=== PATIENT | male | born 1955 | race Caucasian/White ===

== ENCOUNTER 2018-06-19 17:50 | Inpatient (IN) | payer OTHER ==
[~2018-06-19] VITALS: Ht 177.8 cm; Wt 94.7 kg
[~2018-06-19 17:50] MED LIST: ASPI81TA25 PO; LABE100T3 PO; LISI-787 PO
[2018-06-19] MEDS ORDERED: SODIUM CHLORIDE 0.9% 1000ML 1,000 ML IV STA (18:05)
[2018-06-19] MEDS ORDERED: MULTI-VITAMIN INFUSION INJ 10 ML, FoLIC ACID INJ 1 MG, THIAMINE HCL INJ 100 MG in SODIU... IV STA (18:05)
--- NOTE | 2018-06-19 18:26 | DIAGNOSTIC IMAGING REPORT ---
CHEST ONE VIEW PORTABLE HISTORY: 63 years-old Male Evaluate Fever/Sepsis acute fever with sepsis COMPARISON: Chest radiograph 11/29/2013 TECHNIQUE: Portable AP view the chest FINDINGS: Cardiac silhouette is normal in size. Subsegmental right basilar opacities suggest atelectasis. Calcification of the aorta. No pneumothorax, or overt pulmonary edema. Blunting of left costophrenic angle suggests trace effusion. No lobar airspace consolidation. Bones of the chest appear grossly intact. The patient is slightly rotated to the left. IMPRESSION: 1. No lobar airspace consolidation to suggest pneumonia. 2. Trace left pleural effusion. The above report was generated using voice recognition software. It may contain grammatical, syntax or spelling errors. Electronically signed by: Art Keen M.D. 06/19/2018 6:25 PM Dictated Date/Time: 06/19/2018 6:23 PM
[2018-06-19 18:57] LABS: PTT PATIENT 28.7 SECONDS (21.0-31.0)
[2018-06-19] MEDS ORDERED: LABE1TAB28 PO (18:59)
[2018-06-19] MEDS ORDERED: LOSA1TAB38 PO (18:59)
[2018-06-19] MEDS ORDERED: FURO-85 PO (18:59)
[2018-06-19] MEDS ORDERED: ASPI81TA28 PO (18:59)
[2018-06-19] MEDS ORDERED: PRAV10TA39 PO (18:59)
[2018-06-19] MEDS ORDERED: SILD1TAB19 PO (18:59)
[2018-06-19] MEDS ORDERED: HYDR25TA4 PO (18:59)
--- NOTE | 2018-06-19 19:07 | DIAGNOSTIC IMAGING REPORT ---
HEAD WITHOUT CONTRAST (CT) CLINICAL HISTORY: 63 years-old Male with Evaluate Fever/Sepsis. Acute fever with sepsis TECHNIQUE: Multiple axial CT images of the head were obtained without contrast. A dose lowering technique was utilized adhering to the principles of ALARA. CT DOSE: 537.48 mGy.cm COMPARISON: CT head 11/29/2013 FINDINGS: No acute intracranial hemorrhage, midline shift, intracranial mass, hydrocephalus, territorial ischemia or abnormal extra-axial collection. The calvarium is intact. The paranasal sinuses, mastoid air cells, and middle ear cavities are clear. IMPRESSION: No acute intracranial abnormality. The above report was generated using voice recognition software. It may contain grammatical, syntax or spelling errors. Electronically signed by: Art Keen M.D. 06/19/2018 7:06 PM Dictated Date/Time: 06/19/2018 7:04 PM
[2018-06-19 19:12] LABS: ALBUMIN 3.5 gm/dl (3.4-5.0); ALKALINE PHOSPHATASE 119 U/L (45-117); ALT/SGPT 79 U/L (12-78); AST/SGOT 57 U/L (15-37); BLOOD UREA NITROGEN 9 mg/dl (7-18); CALCIUM 9.1 mg/dl (8.5-10.1); CARBON DIOXIDE 26 mmol/L (21-32); CKMB 2.9 ng/ml (0.5-3.6); CREATININE 0.97 mg/dl (0.60-1.40); GLUCOSE 82 mg/dl (70-99); LIPASE 220 U/L (73-393); POTASSIUM 3.2 mmol/L (3.5-5.1); SODIUM 110 mmol/L (136-145); TOTAL PROTEIN 7.3 gm/dl (6.4-8.2)
[2018-06-19 19:30] LABS: HEMATOCRIT 33.9 % (42-52); HEMOGLOBIN 12.9 g/dL (14.0-18.0); MEAN CELL VOLUME 89.2 fL (80-100); MEAN CORPUSCULAR HEMOGLOBIN 33.9 pg (25-34); MEAN CORPUSCULAR HGB CONC 38.1 g/dl (32-36); PLATELET COUNT 113 K/uL (130-400); WHITE BLOOD COUNT 4.71 K/uL (4.8-10.8)
[2018-06-19 19:35] LABS: BASO % 0.8 %; BASO ABS # 0.04 K/uL (0-0.2); EOS % 1.5 %; EOS ABS # 0.07 K/uL (0-0.5); IG# 0.04 K/uL (0.00-0.02); LYMPH % 20.2 %; LYMPH ABS # 0.95 K/uL (1.2-3.4); MONO % 9.6 %; MONO ABS # 0.45 K/uL (0.11-0.59); NEUT % 67.1 %; NEUT ABS # 3.16 K/uL (1.4-6.5)
[2018-06-19] MEDS ORDERED: LORAZEPAM 2 MG/ML 1 ML VIAL IM STA (20:55)
[2018-06-19] MEDS ORDERED: ONDANSETRON INJ 2 MG/ML 2 ML VIAL IV PRN (21:30)
[2018-06-19] MEDS ORDERED: ACETAMINOPHEN 325 MG TAB PO PRN (21:30)
[2018-06-19] MEDS ORDERED: SODIUM CHLORIDE 3% 500 ML BAG IV SCH (21:30)
[2018-06-19] MEDS ORDERED: ICU PROTOCOL FOR HYPERGLYCEMIA PRN (21:30)
[2018-06-19] MEDS ORDERED: SODIUM CHLORIDE 0.9% 1000ML 1,000 ML IV SCH (22:15)
--- NOTE | 2018-06-19 22:16 | EMERGENCY ROOM VISIT NOTE ---
History First contact with patient: 17:59 Chief Complaint: ALCOHOL OVERDOSE Stated Complaint: ALCOHOL History of Present Illness The patient is a 63 year old male who presents to the Emergency Room with complaints of decreased alertness, decreased p.o. intake and weakness. The patient has not been communicating to the family. They reported to EMS that the patient drinks about 30 beers a day. He has not been eating solids 4 days. The patient is a poor historian and is not verbally communicating at the time of the interview and therefore the history is limited to history obtained from EMS and family. The family is concerned about the patient's well-being due to this change in his behavior. He was 302'd by EMS as he was not cooperative and coming. Police were involved at the scene. I feel the patient is not cooperating by staying nonverbal but he clearly understands and answers by shaking his head up and down or left and right. Review of Systems Limited based on patient's lack of cooperation/nonverbal state. Past Medical/Surgical History Medical Problems: (1) HTN (hypertension) (2) Hyponatremia Alcohol abuse Noncompliance with medications Stroke Social History Smoking Status: Current Every Day Smoker Alcohol Use: heavy Marital Status: Housing Status: lives with family Occupation Status: unemployed Current/Historical Medications Scheduled Aspirin (Aspirin Ec), 81 MG PO DAILY Furosemide (Lasix), 20 MG PO DAILY Hydrochlorothiazide (Hctz), 25 MG PO DAILY Labetalol (Normodyne), 200 MG PO BID Losartan Potassium (Cozaar), 100 MG PO DAILY Pravastatin Sodium (Pravastatin Sodium), 1 TAB PO DAILY Sildenafil Citrate (Pulmonary (Sildenafil Citrate), 40-60 MG PO prn ud Physical Exam Vital Signs Date Time Temp Pulse Resp B/P (MAP) Pulse Ox O2 Delivery O2 Flow Rate FiO2 06/19/18 21:48 98 Nasal Cannula 3.0 06/19/18 21:45 89 Room Air 06/19/18 21:35 67 16 127/81 94 Room Air 06/19/18 18:04 37.0 72 18 138/86 98 Room Air 06/19/18 18:03 72 Physical Exam CONSTITUTIONAL/VITAL SIGNS: Reviewed / noted above. GENERAL: Non-toxic in appearance. INTEGUMENTARY: Warm, dry, and Rock. HEAD: Normocephalic. EYES: without scleral icterus or trauma. ENT/OROPHARYNX: clear and moist. LYMPHADENOPATHY/NECK: Is supple without lymphadenopathy or meningismus. RESPIRATORY: Lungs clear and equal. CARDIOVASCULAR: Regular rate and rhythm. GI/ABDOMEN: Soft and nontender. No organomegaly or pulsatile mass. No rebound or guarding. Normal bowel sounds. EXTREMITIES: Warm and well perfused. Chronic appearing deformity to the left ankle. BACK: No CVA tenderness. NEUROLOGICAL: Intact without focal deficits. Nonverbal-felt to be voluntary. PSYCHIATRIC: Nonverbal during interview. Shakes head up and down her left and right answer questions. Minimally cooperates with following commands. MUSCULOSKELETAL: Normally developed with good muscle tone. TRIAGE NURSING DOCUMENTATION REVIEWED. Medical Decision & Procedures ER Provider Diagnostic Interpretation: CHEST ONE VIEW PORTABLE HISTORY: 63 years-old Male Evaluate Fever/Sepsis acute fever with sepsis COMPARISON: Chest radiograph 11/29/2013 TECHNIQUE: Portable AP view the chest FINDINGS: Cardiac silhouette is normal in size. Subsegmental right basilar opacities suggest atelectasis. Calcification of the aorta. No pneumothorax, or overt pulmonary edema. Blunting of left costophrenic angle suggests trace effusion. No lobar airspace consolidation. Bones of the chest appear grossly intact. The patient is slightly rotated to the left. IMPRESSION: 1. No lobar airspace consolidation to suggest pneumonia. 2. Trace left pleural effusion. The above report was generated using voice recognition software. It may contain grammatical, syntax or spelling errors. Electronically signed by: Art Keen M.D. 06/19/2018 6:25 PM Laboratory Results 06/19/18 18:30 Red Blood Count 3.80, Mean Corpuscular Volume 89.2, Mean Corpuscular Hemoglobin 33.9, Mean Corpuscular Hemoglobin Concent 38.1, Neutrophils (%) (Auto) 67.1, Lymphocytes (%) (Auto) 20.2, Monocytes (%) (Auto) 9.6, Eosinophils (%) (Auto) 1.5, Basophils (%) (Auto) 0.8, Neutrophils # (Auto) 3.16, Lymphocytes # (Auto) 0.95, Monocytes # (Auto) 0.45, Eosinophils # (Auto) 0.07, Basophils # (Auto) 0.04 Test 06/19/18 18:30 06/19/18 19:08 06/19/18 21:24 06/19/18 22:00 White Blood Count 4.71 K/uL (4.8-10.8) Red Blood Count 3.80 M/uL (4.7-6.1) Hemoglobin 12.9 g/dL (14.0-18.0) Hematocrit 33.9 % (42-52) Mean Corpuscular Volume 89.2 fL (80-100) Mean Corpuscular Hemoglobin 33.9 pg (25-34) Mean Corpuscular Hemoglobin Concent 38.1 g/dl (32-36) Platelet Count 113 K/uL (130-400) Neutrophils (%) (Auto) 67.1 % Lymphocytes (%) (Auto) 20.2 % Monocytes (%) (Auto) 9.6 % Eosinophils (%) (Auto) 1.5 % Basophils (%) (Auto) 0.8 % Neutrophils # (Auto) 3.16 K/uL (1.4-6.5) Lymphocytes # (Auto) 0.95 K/uL (1.2-3.4) Monocytes # (Auto) 0.45 K/uL (0.11-0.59) Eosinophils # (Auto) 0.07 K/uL (0-0.5) Basophils # (Auto) 0.04 K/uL (0-0.2) Immature Granulocyte % (Auto) 0.8 % Immature Granulocyte # (Auto) 0.04 K/uL (0.00-0.02) Red Blood Cell Morphology Unremarkable Prothrombin Time 10.3 SECONDS (9.0-12.0) Prothromb Time International Ratio 1.0 (0.9-1.1) Activated Partial Thromboplast Time 28.7 SECONDS (21.0-31.0) Partial Thromboplastin Ratio 1.1 Est Creatinine Clear Calc Drug Dose 85.8 ml/min Total Bilirubin 0.6 mg/dl (0.2-1) Direct Bilirubin 0.2 mg/dl (0-0.2) Aspartate Amino Transf (AST/SGOT) 57 U/L (15-37) Alanine Aminotransferase (ALT/SGPT) 79 U/L (12-78) Alkaline Phosphatase 119 U/L (45-117) Ammonia < 10.0 umol/L (11-32) Total Creatine Kinase 106 U/L (39-308) Creatine Kinase MB 2.9 ng/ml (0.5-3.6) Creatine Kinase MB Ratio 2.7 (0-3.0) Troponin I < 0.015 ng/ml (0-0.045) Total Protein 7.3 gm/dl (6.4-8.2) Albumin 3.5 gm/dl (3.4-5.0) Lipase 220 U/L (73-393) Thyroid Stimulating Hormone (TSH) 0.783 uIu/ml (0.300-4.500) Acetaminophen Level < 2 ug/ml (10-30) Ethyl Alcohol mg/dL 46.0 mg/dl (0-3) Urine Color YELLOW Urine Appearance CLEAR (CLEAR) Urine pH 5.5 (4.5-7.5) Urine Specific Melvin 1.008 (1.000-1.030) Urine Protein NEG (NEG) Urine Glucose (UA) NEG (NEG) Urine Ketones NEG (NEG) Urine Occult Blood NEG (NEG) Urine Nitrite NEG (NEG) Urine Bilirubin NEG (NEG) Urine Urobilinogen NEG (NEG) Urine Leukocyte Esterase NEG (NEG) Urine WBC (Auto) /hpf (0-5) Urine RBC (Auto) /hpf (0-4) Urine Hyaline Casts (Auto) /lpf (0-5) Urine Epithelial Cells (Auto) /lpf (0-5) Urine Bacteria (Auto) (NEG) Urine RBC 0-4 /hpf (0-4) Urine WBC 0 /hpf (0-5) Urine Epithelial Cells 0-5 /lpf (0-5) Urine Bacteria NEG (NEG) Urine Hyaline Casts 0 /lpf (0-5) Urine Opiates Screen NEG (NEG) Urine Methadone, Qualitative NEG (NEG) Urine Barbiturates NEG (NEG) Urine Phencyclidine (PCP) Level NEG (NEG) Ur Amphetamine/Methamphetamine NEG (NEG) MDMA (Ecstasy) Screen NEG (NEG) Urine Benzodiazepines Screen NEG (NEG) Urine Cocaine Metabolite NEG (NEG) Urine Marijuana (THC) NEG (NEG) Test 06/19/18 22:06 Medications Administered Medications (Trade) Dose Ordered Sig/Rachel Route Start Time Stop Time Status Last Admin Dose Admin Sodium Chloride 1,000 ml @ 999 mls/hr Q1H1M STAT IV 06/19/18 18:05 06/19/18 19:05 DC 06/19/18 18:35 999 MLS/HR Multivitamins 10 ml/Folic Acid 1 mg/Thiamine HCl 100 mg/Sodium Chloride 1,011.2 ml @ 999 mls/ hr Q1H1M STAT IV 06/19/18 18:05 06/19/18 19:05 DC 06/19/18 18:35 999 MLS/HR Lorazepam (Ativan Inj) 2 mg NOW STAT IM 06/19/18 20:55 06/19/18 20:57 DC 06/19/18 21:14 2 MG Procedure Central line attempt: Using sterile technique and with bedside ultrasound, an attempt was made to access the left subclavian vein. 1% lidocaine was used for anesthesia. The attempt was not successful after the first attempt. The patient was not able to cooperative with the procedure (moving and reaching with hands into the sterile environment) and therefore additional attempts were abandoned. ECG Per My Interpretation Indication: weakness Rate (beats per minute): 70 Rhythm: sinus rhythm Findings: 1st degree AV block, no acute ischemic change, no ectopy, other (no st elevation) ED Course The patient was evaluated. Banana bag and IV fluids ordered. Central line attempted. Medical Decision Differential includes acute coronary syndrome, myocardial infarction, CVA, TIA, anemia, infection, pneumonia, UTI, pyelonephritis, poor nutrition, dehydration, electrolyte disturbance,hypoglycemia, alcohol abuse/intoxication, other alcohol related illnesses .The patient is a 63 year old male who presents to the Emergency Room with complaints of decreased alertness, decreased p.o. intake and weakness. The patient has not been communicating to the family. They reported to EMS that the patient drinks about 30 beers a day. He has not been eating solids 4 days. The patient is a poor historian and is not verbally communicating at the time of the interview and therefore the history is limited to history obtained from EMS and family. The family is concerned about the patient's well-being due to this change in his behavior. He was 302'd by EMS as he was not cooperative and coming. Police were involved at the scene. I feel the patient is not cooperating by staying nonverbal but he clearly understands and answers by shaking his head up and down or left and right. The patient is afebrile with normal vital signs. His physical was unremarkable with exception of being nonverbal which is felt to be voluntary. Chronic deformity noted to the left ankle. A CT scan of the brain was negative for acute disease as was a chest x- ray. EKG shows a sinus rhythm without ischemic changes. Sodium was 110 and a potassium was 3.2. Chloride is 74. AST is 57 and ALT is 79. Troponin was negative, TSH was normal. Tox screen was negative. Alcohol level is 46. Urine did not show infection. CBC is unremarkable. The patient was told the results of the test. I did speak with Dr. Mendez from nephrology. He recommended 3% saline at 60 cc/h through central access. Subclavian access was attempted on the left without success. PICC line was placed. Chest X-ray does not show pneumothorax and the PICC line is in the SVC. I spoke with the hospitalist, who will see the patient for further inpatient evaluation and care. He was treated with a liter of normal saline IV as well as a banana bag when he initially arrived. Medication Reconcilliation Current Medication List: was personally reviewed by me Blood Pressure Screening Patient's blood pressure: Normal blood pressure Blood pressure disposition: Did not require urgent referral Impression Primary Impression: Hyponatremia Additional Impressions: Weakness Altered mental status, unspecified Alcoholism Critical Care I have personally spent 35 minutes of critical care time in the direct management of this patient. This includes bedside care, interpretation of diagnostic studies, and testing, discussion with consultants, patient, and family members, and other required patient management activities. This 35 minutes is in excess of all separately billable procedures. Departure Information Dispostion Being Evaluated By Hospitalist Referrals No Doctor, Assigned (PCP) Patient Instructions [facility] Problem Qualifiers
--- NOTE | 2018-06-19 22:22 | DIAGNOSTIC IMAGING REPORT ---
CHEST ONE VIEW PORTABLE HISTORY: 63 years-old Male s/p central line attempt left side status post placement of a left-sided PICC COMPARISON: Chest radiograph 06/19/2018 at 6:04 PM TECHNIQUE: Portable AP view the chest FINDINGS: Study is limited secondary to patient rotation. Cardiac silhouette appears to be within the upper limits of normal in size. Subsegmental bibasilar opacities with trace pleural effusions. Pulmonary vascular congestion without overt pulmonary edema. No postprocedural pneumothorax. Left-sided PICC is noted with distal tail within the distribution of the distal SVC. Acute to subacute appearing mildly displaced fractures of the lateral left eighth and ninth ribs. IMPRESSION: 1. Left-sided PICC distal tip projects over the distal SVC. No postprocedural pneumothorax identified. 2. Mild pulmonary vascular congestion with trace pleural effusions. 3. Subsegmental bibasilar opacities suggest atelectasis. 4. Acute to subacute appearing mildly displaced fractures of the posterior lateral left eighth and ninth ribs. The above report was generated using voice recognition software. It may contain grammatical, syntax or spelling errors. Electronically signed by: Art Keen M.D. 06/19/2018 10:21 PM Dictated Date/Time: 06/19/2018 10:18 PM
[2018-06-19] MEDS ORDERED: MAGNESIUM SULFATE 1GM / D5W 100 ML IV STA (22:34)
[2018-06-19] MEDS ORDERED: POTASSIUM CHLORIDE 10 MEQ TABCR PO STA (22:34)
[2018-06-19 22:35] LABS: PHOSPHORUS 2.8 mg/dl (2.5-4.9)
[2018-06-19] MEDS ORDERED: LORAZEPAM 2 MG/ML 1 ML VIAL IV PRN (22:45)
--- NOTE | 2018-06-19 22:52 | History and Physical ---
History & Physical Date & Time of Service: Jun 19, 2018 at 22:26 Chief Complaint: Alcohol Primary Care Physician: Alex Zhou D.O. History of Present Illness Source: family Mr. Meyer is a 63yo male with history of HTN, HLP, abnormal LFTs, thalamic CVA in 2013, EtOH and tobacco abuse presenting with severe symptomatic hyponatremia. History obtained from patient's daughter and ex- at bedside as patient is somnolent after receiving Ativan for PICC line placement. Patient with history of frequent falls, mostly EtOH induced. Family reports he has fallen down the steps in his home a number of times. Unsure of any recent head trauma. His last fall reported to be this AM when he missed his chair while trying to sit down and fell to the floor after which he was unable to get up secondary to diffuse weakness and poor coordination. Falls have been increased in frequency over the past two weeks as well as worsening balance and difficulty ambulating. Family also reports that he is confused, not recognizing his family, not acting appropriately and poor memory. They also endorse a 30# weight loss over the last month and state that he has stopped eating completely and presently only drinks EtOH. Patient has prolonged history of EtOH abuse. Drank liquor to excess in the past. Presently drinks one case of beer daily. Last drink was this afternoon. No reported history of DTs or withdrawal symptoms, however patient has not had a lapse in his EtOH intake for over 2 years. He is an active smoker - appx 25 hand rolled cigarettes/day. He occasionally smokes marijuana. Patient with history of left foot deformity after a traumatic tendon rupture years ago. He was prescribed PT and brace which he did not followup with. Past Medical/Surgical History Medical Problems: Hypertension Hyperlipidemia Abnormal LFTs EtOH abuse Tobacco abuse CVA - thalamus 2013 Past surgical history: Left foot tendon rupture Family History CVA and Hypertension Social History Smoking Status: Current Every Day Smoker Smokeless Tobacco Use: No Alcohol Use: heavy Drug Use: marijuana Marital Status: Housing status: lives with family Occupational Status: unemployed Immunizations History of Influenza Vaccine: No History of Tetanus Vaccine?: Yes History of Pneumococcal: No History of Hepatitis B Vaccine: No Allergies Coded Allergies: No Known Allergies (Unverified , 11/29/13) Home Medications Scheduled Aspirin (Aspirin Ec), 81 MG PO DAILY Furosemide (Lasix), 20 MG PO DAILY Hydrochlorothiazide (Hctz), 25 MG PO DAILY Labetalol (Normodyne), 200 MG PO BID Losartan Potassium (Cozaar), 100 MG PO DAILY Pravastatin Sodium (Pravastatin Sodium), 1 TAB PO DAILY Sildenafil Citrate (Pulmonary (Sildenafil Citrate), 40-60 MG PO prn ud Review of Systems Unable to obtain thorough and accurate 10 point ROS secondary to patient's altered mental status. Per family he denies fevers/chills/CP/palpitations/worsening shortness of breath /abdominal pain/nausea/vomiting/diarrhea He endorses dizziness, not feeling well, remainder described in HPI Physical Exam Vital Signs Date Time Temp Pulse Resp B/P (MAP) Pulse Ox O2 Delivery O2 Flow Rate FiO2 06/19/18 21:48 98 Nasal Cannula 3.0 06/19/18 21:45 89 Room Air 06/19/18 21:35 67 16 127/81 94 Room Air 06/19/18 18:04 37.0 72 18 138/86 98 Room Air 06/19/18 18:03 72 General: resting in bed, +snoring with apneic episodes, poorly kempt, patient opens eyes to verbal stimuli then returns to sleep. Does not follow commands. Skin: multiple scattered ecchymoses, left foot redness and warmth, no palmar erythema, no spider hemangioma HEENT: NC/AT, PERRL, anicteric sclera, conjunctiva without injection, MMM, poor dentition, neck supple, no JVD, no thyromegaly, no cervical LAD, trachea midline, neck supple Heart: +S1/S2, regular, 3/6 MARIO at left sternal base, no rubs/gallops, no JVD, no gynecomastica Lungs: equal air entry bilaterally, no rales/rhonchi or wheezing Abd: obese, soft, NT/ND, no masses or organomegaly, no ascites Ext: warm, well perfused, palpable pulses in LE bilaterally, left foot deformity, warmth/redness, onychomycosis Neuro: patient somnolent after receiving Ativan for procedure, opens eyes to verbal stimuli, withdraws 4 extremities no noxious stimuli with equal strength Diagnostics Laboratory Results Results Past 24 Hours Test 06/19/18 18:30 06/19/18 19:08 06/19/18 21:24 Range/Units White Blood Count 4.71 4.8-10.8 K/uL Red Blood Count 3.80 4.7-6.1 M/uL Hemoglobin 12.9 14.0-18.0 g/dL Hematocrit 33.9 42-52 % Mean Corpuscular Volume 89.2 80-100 fL Mean Corpuscular Hemoglobin 33.9 25-34 pg Mean Corpuscular Hemoglobin Concent 38.1 32-36 g/dl Platelet Count 113 130-400 K/uL Neutrophils (%) (Auto) 67.1 % Lymphocytes (%) (Auto) 20.2 % Monocytes (%) (Auto) 9.6 % Eosinophils (%) (Auto) 1.5 % Basophils (%) (Auto) 0.8 % Neutrophils # (Auto) 3.16 1.4-6.5 K/uL Lymphocytes # (Auto) 0.95 1.2-3.4 K/uL Monocytes # (Auto) 0.45 0.11-0.59 K/uL Eosinophils # (Auto) 0.07 0-0.5 K/uL Basophils # (Auto) 0.04 0-0.2 K/uL Immature Granulocyte % (Auto) 0.8 % Immature Granulocyte # (Auto) 0.04 0.00-0.02 K/uL Red Blood Cell Morphology Unremarkable Prothrombin Time 10.3 9.0-12.0 SECONDS Prothromb Time International Ratio 1.0 0.9-1.1 Activated Partial Thromboplast Time 28.7 21.0-31.0 SECONDS Partial Thromboplastin Ratio 1.1 Sodium Level 110 136-145 mmol/L Potassium Level 3.2 3.5-5.1 mmol/L Chloride Level 74 98-107 mmol/L Carbon Dioxide Level 26 21-32 mmol/L Anion Gap 10.0 3-11 mmol/L Blood Urea Nitrogen 9 7-18 mg/dl Creatinine 0.97 0.60-1.40 mg/dl Est Creatinine Clear Calc Drug Dose 85.8 ml/min Estimated GFR () 94.6 Estimated GFR (Non- 81.6 BUN/Creatinine Ratio 9.2 10-20 Random Glucose 82 70-99 mg/dl Calcium Level 9.1 8.5-10.1 mg/dl Total Bilirubin 0.6 0.2-1 mg/dl Direct Bilirubin 0.2 0-0.2 mg/dl Aspartate Amino Transf (AST/SGOT) 57 15-37 U/L Alanine Aminotransferase (ALT/SGPT) 79 12-78 U/L Alkaline Phosphatase 119 45-117 U/L Ammonia < 10.0 11-32 umol/L Total Creatine Kinase 106 39-308 U/L Creatine Kinase MB 2.9 0.5-3.6 ng/ml Creatine Kinase MB Ratio 2.7 0-3.0 Troponin I < 0.015 0-0.045 ng/ml Total Protein 7.3 6.4-8.2 gm/dl Albumin 3.5 3.4-5.0 gm/dl Lipase 220 73-393 U/L Thyroid Stimulating Hormone (TSH) 0.783 0.300-4.500 uIu/ml Acetaminophen Level < 2 10-30 ug/ml Ethyl Alcohol mg/dL 46.0 0-3 mg/dl Urine Color YELLOW Urine Appearance CLEAR CLEAR Urine pH 5.5 4.5-7.5 Urine Specific [place] 1.008 1.000-1.030 Urine Protein NEG NEG Urine Glucose (UA) NEG NEG Urine Ketones NEG NEG Urine Occult Blood NEG NEG Urine Nitrite NEG NEG Urine Bilirubin NEG NEG Urine Urobilinogen NEG NEG Urine Leukocyte Esterase NEG NEG Urine WBC (Auto) 0-5 /hpf Urine RBC (Auto) 0-4 /hpf Urine Hyaline Casts (Auto) 0-5 /lpf Urine Epithelial Cells (Auto) 0-5 /lpf Urine Bacteria (Auto) NEG Urine RBC 0-4 0-4 /hpf Urine WBC 0 0-5 /hpf Urine Epithelial Cells 0-5 0-5 /lpf Urine Bacteria NEG NEG Urine Hyaline Casts 0 0-5 /lpf Urine Opiates Screen NEG NEG Urine Methadone, Qualitative NEG NEG Urine Barbiturates NEG NEG Urine Phencyclidine (PCP) Level NEG NEG Ur Amphetamine/Methamphetamine NEG NEG MDMA (Ecstasy) Screen NEG NEG Urine Benzodiazepines Screen NEG NEG Urine Cocaine Metabolite NEG NEG Urine Marijuana (THC) NEG NEG Diagnostic Radiology CHEST ONE VIEW PORTABLE HISTORY: 63 years-old Male Evaluate Fever/Sepsis acute fever with sepsis COMPARISON: Chest radiograph 11/29/2013 TECHNIQUE: Portable AP view the chest FINDINGS: Cardiac silhouette is normal in size. Subsegmental right basilar opacities suggest atelectasis. Calcification of the aorta. No pneumothorax, or overt pulmonary edema. Blunting of left costophrenic angle suggests trace effusion. No lobar airspace consolidation. Bones of the chest appear grossly intact. The patient is slightly rotated to the left. IMPRESSION: 1. No lobar airspace consolidation to suggest pneumonia. 2. Trace left pleural effusion. The above report was generated using voice recognition software. It may contain grammatical, syntax or spelling errors. Electronically signed by: Art Keen M.D. 06/19/2018 6:25 PM HEAD WITHOUT CONTRAST (CT) CLINICAL HISTORY: 63 years-old Male with Evaluate Fever/Sepsis. Acute fever with sepsis TECHNIQUE: Multiple axial CT images of the head were obtained without contrast. A dose lowering technique was utilized adhering to the principles of ALARA. CT DOSE: 537.48 mGy.cm COMPARISON: CT head 11/29/2013 FINDINGS: No acute intracranial hemorrhage, midline shift, intracranial mass, hydrocephalus, territorial ischemia or abnormal extra-axial collection. The calvarium is intact. The paranasal sinuses, mastoid air cells, and middle ear cavities are clear. IMPRESSION: No acute intracranial abnormality. The above report was generated using voice recognition software. It may contain grammatical, syntax or spelling errors. EKG The study demonstrates sinus rhythm with 1st degree AV block, QI=330, normal axis, no evidence of acute ischemia Impression Assessment and Plan 63yo male with HTN, HLP, EtOH and tobacco abuse, prior CVA presenting with acute hyponatremia Wh=055 1. Hyponatremia - acute euvolemic hyponatremia. Vc=822, prior was 135 in 2014. No seizures but family reports increase in falls/ambulatory dysfunction and confusion. PICC line placed in ER in anticipation of 3%NSS infusion. Patient appears to be euvolemic on exam. Ddx to include medication effects as patient on HCTZ, less likely secondary to Lasix. Poor solute intake with beer potomania. Also consider SIADH, liver dysfunction, endocrine etiology. -Check urine electrolytes, random cortisol, TSH, serum and urine osmolality -As patient is not actively seizing will hold of on 3% saline for now -Administer NSS at 125mL/hr continuous infusion -Check PRP q 4 hours to monitor rate of correction. Goal for no more than 0.5mEq/hour, no more than 10mEq/day -NPO except medications 2. EtOH abuse - +EtOH level of 46, last drink this AM. No reported history of withdrawals -Seizure precautions -Administer banana bag x 1 -Thiamine, MVI and Folic acid -CIWA protocol with IV Ativan PRN -Maintain electrolytes 3. Left foot deformity -Appears red and warm on exam, mild cellulitis -Check ESR and CRP -X-ray 2 view -Keflex 500mg po q 6 hours -Consider Podiatry consultation 4. HTN -patient normotensive at present -Continue Cozaar 100mg po daily -Continue Labetalol 200mg po BID -Hold HCTZ in setting of hyponatremia -Holding parameters on medications 5. HLP - stable, chronic -Continue Pravastatin 6. F/E/N - NSS at 125mL/hr, monitor electrolytes and replete as needed, will administer Kdur 40mEq and Magnesium sulfate x 2gm, thiamine daily, MVI, NPO for now except medications 7. Ppx - Lovenox for DVT prophylaxis 8. Code - Full 9. Dispo - admit to MICU Resuscitation Status Full VTE Prophylaxis Will order VTE Prophylaxis: Yes
[2018-06-19 23:01] VITALS: BP 146/84; TEMP 36.7
--- NOTE | 2018-06-19 23:02 | Nephrology Consultation ---
Nephrology Consultation Date & Providers Date of Consultation: Jun 19, 2018. Primary Care Provider: Alex Zhou D.O. Referring Provider: Reason for Consultation Hyponatremia History of Present Illness Mr. Wes Meyer is a 63-year-old male with a history of hypertension and CVA. There is a significant history of chronic tobacco abuse and regular alcohol use. The patient was consuming 30 beers a day per report. Nutrition has been poor. Wes was involuntary committed to the ED today after EMS and police were summoned to his home by family. The family was concerned regarding decreased alertness, poor oral intake and significant generalized weakness. I was contacted by Dr. Esposito due to severe hyponatremia. In the ED, 1L of saline was provided as well as a liter of D5W+thiamine+folate+ MVI. Wes is making urine. UA/microscopy was bland and acellular. SG 1.008. Urine output not documented. The patient was given Ativan for agitation and is somnolent. He is resting comfortably in bed at the time of my assessment. Wes has been drinking up until the day of admission. Reported 30+ beers per day. No history of withdraw or seizures. Most recent prior serum sodium was in 2013. The patient was admitted to [facility] in 2013 with accelerated hypertension and CVA. CT head was obtained and reviewed in the ED today. No reported evidence of herniation. History was obtained from the medical record and discussion with ED medical staff and physicians. The patient was unable to provide history due to current mental status. Past Medical/Surgical History Medical: Hypertension (previously treated with MALVIN and HCTZ but patient reportedly not currently taking) History of thalamic CVA in the setting of accelerated HTN Tobacco abuse Alcohol abuse and dependence Surgical: none reported Allergies Coded Allergies: No Known Allergies (Unverified , 11/29/13) Inpatient Medications Current Inpatient Medications Medications (Trade) Dose Ordered Sig/Rachel Route Start Time Stop Time Status Last Admin Dose Admin Enoxaparin Sodium (Lovenox Inj) 40 mg Q24H SQ 06/19/18 21:30 07/19/18 21:29 UNV Acetaminophen (Tylenol Tab) 650 mg Q4H PRN PO 06/19/18 21:30 07/19/18 21:29 Ondansetron HCl (Zofran Inj) 4 mg Q6H PRN IV 06/19/18 21:30 07/19/18 21:29 Miscellaneous Information (Icu Protocol For Hyperglycemia) 1 ea PRN PRN N/A 06/19/18 21:30 06/21/18 21:29 Sodium Chloride 1,000 ml @ 125 mls/hr Q8H IV 06/19/18 22:15 07/19/18 22:14 UNV Aspirin (Ecotrin Tab) 81 mg DAILY PO 06/20/18 09:00 07/20/18 08:59 UNV Labetalol HCl (Normodyne Tab) 200 mg BID PO 06/20/18 09:00 07/20/18 08:59 UNV Losartan Potassium (coZAAR TAB) 100 mg DAILY PO 06/20/18 09:00 07/20/18 08:59 UNV Pravastatin Sodium (Pravachol Tab) 10 mg DAILY PO 06/20/18 09:00 07/20/18 08:59 UNV Social History Smoking Status: Current Every Day Smoker Marital Status: Occupation: unemployed Review of Systems A complete review of systems was unable to be performed due to current mental status. Physical Exam Date Time Temp Pulse Resp B/P (MAP) Pulse Ox O2 Delivery O2 Flow Rate FiO2 06/19/18 21:48 98 Nasal Cannula 3.0 06/19/18 21:45 89 Room Air 06/19/18 21:35 67 16 127/81 94 Room Air 06/19/18 18:04 37.0 72 18 138/86 98 Room Air 06/19/18 18:03 72 General Appearance: no apparent distress, + thin, + pertinent finding (sedate, poor hygiene) Head: normocephalic, atraumatic Eyes: sclerae normal ENT: normal ENT inspection, pharynx normal Neck: supple, no JVD Respiratory/Chest: lungs clear Cardiovascular: regular rate, rhythm, no gallop Abdomen/GI: normal bowel sounds, soft Extremities/Musculoskelatal: normal inspection, no pedal edema, + pertinent finding (chronic stasis changes, deformity of ankles and feet) Neurologic/Psych: + pertinent finding (obtunded, does not wake to answer questions) Laboratory Results Last 24 Hours Test 06/19/18 18:30 06/19/18 19:08 06/19/18 21:24 White Blood Count 4.71 K/uL Red Blood Count 3.80 M/uL Hemoglobin 12.9 g/dL Hematocrit 33.9 % Mean Corpuscular Volume 89.2 fL Mean Corpuscular Hemoglobin 33.9 pg Mean Corpuscular Hemoglobin Concent 38.1 g/dl Platelet Count 113 K/uL Neutrophils (%) (Auto) 67.1 % Lymphocytes (%) (Auto) 20.2 % Monocytes (%) (Auto) 9.6 % Eosinophils (%) (Auto) 1.5 % Basophils (%) (Auto) 0.8 % Neutrophils # (Auto) 3.16 K/uL Lymphocytes # (Auto) 0.95 K/uL Monocytes # (Auto) 0.45 K/uL Eosinophils # (Auto) 0.07 K/uL Basophils # (Auto) 0.04 K/uL Immature Granulocyte % (Auto) 0.8 % Immature Granulocyte # (Auto) 0.04 K/uL Red Blood Cell Morphology Unremarkable Prothrombin Time 10.3 SECONDS Prothromb Time International Ratio 1.0 Activated Partial Thromboplast Time 28.7 SECONDS Partial Thromboplastin Ratio 1.1 Sodium Level 110 mmol/L Potassium Level 3.2 mmol/L Chloride Level 74 mmol/L Carbon Dioxide Level 26 mmol/L Anion Gap 10.0 mmol/L Blood Urea Nitrogen 9 mg/dl Creatinine 0.97 mg/dl Est Creatinine Clear Calc Drug Dose 85.8 ml/min Estimated GFR () 94.6 Estimated GFR (Non- 81.6 BUN/Creatinine Ratio 9.2 Random Glucose 82 mg/dl Calcium Level 9.1 mg/dl Total Bilirubin 0.6 mg/dl Direct Bilirubin 0.2 mg/dl Aspartate Amino Transf (AST/SGOT) 57 U/L Alanine Aminotransferase (ALT/SGPT) 79 U/L Alkaline Phosphatase 119 U/L Ammonia < 10.0 umol/L Total Creatine Kinase 106 U/L Creatine Kinase MB 2.9 ng/ml Creatine Kinase MB Ratio 2.7 Troponin I < 0.015 ng/ml Total Protein 7.3 gm/dl Albumin 3.5 gm/dl Lipase 220 U/L Thyroid Stimulating Hormone (TSH) 0.783 uIu/ml Acetaminophen Level < 2 ug/ml Ethyl Alcohol mg/dL 46.0 mg/dl Urine Color YELLOW Urine Appearance CLEAR Urine pH 5.5 Urine Specific [place] 1.008 Urine Protein NEG Urine Glucose (UA) NEG Urine Ketones NEG Urine Occult Blood NEG Urine Nitrite NEG Urine Bilirubin NEG Urine Urobilinogen NEG Urine Leukocyte Esterase NEG Urine WBC (Auto) /hpf Urine RBC (Auto) /hpf Urine Hyaline Casts (Auto) /lpf Urine Epithelial Cells (Auto) /lpf Urine Bacteria (Auto) Urine RBC 0-4 /hpf Urine WBC 0 /hpf Urine Epithelial Cells 0-5 /lpf Urine Bacteria NEG Urine Hyaline Casts 0 /lpf Urine Opiates Screen NEG Urine Methadone, Qualitative NEG Urine Barbiturates NEG Urine Phencyclidine (PCP) Level NEG Ur Amphetamine/Methamphetamine NEG MDMA (Ecstasy) Screen NEG Urine Benzodiazepines Screen NEG Urine Cocaine Metabolite NEG Urine Marijuana (THC) NEG Impression (1) Hyponatremia (2) Hypokalemia (3) Alcohol dependence Mr. Wes Meyer is a 63-year-old male with hypertension, history of thalamic CVA, tobacco abuse and chronic alcohol use. He presented to the ED with mental status changes. The family describes decreased alertness, poor oral intake and generalized weakness. Laboratory evaluation is notable for hypokalemia and severe hyponatremia. He appears at least moderately symptomatic in terms of the dysnatremia with notable mental status changes and lethargy. Patient appears euvolemic. Clinical presentation is consistent with photomania. Certainly, I cannot exclude SIADH and I would avoid aggressive fluid resuscitation pending additional urine studies. Wes is a very high risk patient. High risk for ODS based on hypokalemia, alcohol abuse and poor nutrition. He is also high risk for complications associated with alcohol dependence. Chronicity of hyponatremia is unclear. Treatment should be approached cautiously to avoid correction >6 mEq/24 hours. The patient is being admitted to the ICU for management. In the ED, he was treated with 1L NS as well as 1L of D5W + thiamine, folate and MVI. IV lorazepam was provided for agitation. PICC line was placed for central access for hypertonic fluids and close monitoring of laboratory studies. The patient was consuming alcohol on the day prior to admission. Recommendations -- Monitor and replace serum potassium, 40 mEq IV now with additional as needed -- Check serum phosphorus and magnesium -- Check urine osmolality, [place] + -- Monitor urine osmolality regularly during treatment (q 6-8 hours) -- Document I/O'sBennett would be considered beneficial for accurate monitoring if needed -- Monitor serum sodium and potassium at least q 3 hours -- After review of pending urine osmolality and repeat serum sodium, start bolus of 3% saline if patient is not showing evidence of autocorrection -- Suggest giving 3% saline over bolus @ 100 ml over 1 hour followed by recheck of serum sodium level -- Additional boluses provided as needed to encourage a rate of correction not to exceed 0.5 mEq/hr or >6 mEq in 24 hours -- Stop infusions of hypertonic saline once serum sodium has increased > 4 mEq ( >114 mmol/L) -- Routine neuro-checks and monitoring for DT's
[2018-06-19] MEDS ORDERED: MULTI-VITAMIN INFUSION INJ 10 ML, THIAMINE HCL INJ 100 MG, FoLIC ACID INJ 1 MG in SODIU... IV STA (23:19)
[2018-06-19 23:38] VITALS: BP 146/84; PULSE 68; TEMP 36.7; O2SAT 100; Ht 177.8 cm; Wt 94.7 kg
[2018-06-20] VITALS (18 sets, daily range): BP systolic 106–169; BP diastolic 73–98; PULSE 58–69; TEMP 36.4–37.1; O2SAT 91–100
[2018-06-20 00:12] LABS: CREATININE 0.79 mg/dl (0.60-1.40)
[2018-06-20 00:13] LABS: POTASSIUM RANDOM URINE 2.6 mEq/L; SODIUM RANDOM URINE 8 mEq/L
[2018-06-20] MEDS ORDERED: POTASSIUM PHOS 3 MMOL/1 ML INFUSION IV STA (00:19)
[2018-06-20] MEDS ORDERED: POTASSIUM PHOSPHATE INJ 15 MMOL in SODIUM CHLORIDE 0.9% 250ML 250 ML IV ONE (01:00)
[2018-06-20] MEDS: POTASSIUM CHLR 20 MEQ / WTR 20 MEQ IV SCH ×2 (01:07→03:03)
[2018-06-20] MEDS: THIAMINE HCL INJ 100 MG in SYRINGE 9 ML IV SCH (01:07)
[2018-06-20] MEDS: DEXTROSE 5% 1000ML 1,000 ML IV SCH ×3 (01:08→14:59)
[2018-06-20] MEDS: DESMOPRESSIN ACETATE INJ 2 MCG in SODIUM CHLORIDE 0.9% 50ML 50 ML IV SCH ×2 (01:20→08:55)
[2018-06-20 03:14] LABS: CALCIUM 8.2 mg/dl (8.5-10.1); CREATININE 0.74 mg/dl (0.60-1.40); POTASSIUM 3.3 mmol/L (3.5-5.1)
[2018-06-20] MEDS ORDERED: NURSING VERBAL MED ORDER ONE ×3 (03:30→20:30)
[2018-06-20] MEDS ORDERED: DESMOPRESSIN ACETATE INJ 2 MCG in SODIUM CHLORIDE 0.9% 50ML 50 ML IV STA (04:33)
[2018-06-20 05:08] LABS: CALCIUM 8.1 mg/dl (8.5-10.1); CREATININE 0.78 mg/dl (0.60-1.40); POTASSIUM 3.6 mmol/L (3.5-5.1)
--- NOTE | 2018-06-20 06:45 | DIAGNOSTIC IMAGING REPORT ---
L FOOT 2 VIEWS HISTORY: 63 years-old Male deformity chronic deformity of the left foot COMPARISON: Left ankle radiographs 05/04/2012 TECHNIQUE: 3 views of the left foot FINDINGS: Pes planus deformity with hindfoot valgus deformity severe joint space narrowing noted throughout the midfoot and midfoot. Corticated bone fragments about the tibiotalar joint with chronic remodeling. Demineralized appearance of the bones. Moderate first MTP joint and at least mild multidigit interphalangeal osteoarthritis. No definite acute fracture or dislocation. Soft tissue swelling about the ankle with large joint effusion. IMPRESSION: 1. No acute fracture or dislocation. 2. Pes planus deformity with hindfoot valgus and advanced degenerative changes with remodeling about the hindfoot as above. 3. Soft tissue swelling about the ankle with joint effusion. The above report was generated using voice recognition software. It may contain grammatical, syntax or spelling errors. Electronically signed by: Art Keen M.D. 06/20/2018 6:43 AM Dictated Date/Time: 06/20/2018 6:39 AM
[2018-06-20] MEDS: ASPIRIN 81 MG ECTAB PO SCH (07:55)
[2018-06-20] MEDS: ENOXAPARIN 40 MG/0.4 ML SYR SQ SCH (07:55)
[2018-06-20] MEDS: LOSARTAN POTASSIUM 50 MG TAB PO SCH (07:55)
[2018-06-20] MEDS: CEPHALEXIN MONOHYDRATE 500 MG CAP PO SCH ×4 (07:55→21:32)
[2018-06-20] MEDS: LABETALOL HCL 200 MG TAB PO SCH ×2 (07:56→21:32)
[2018-06-20] MEDS: PRAVASTATIN SOD 10 MG TAB PO SCH (07:56)
[2018-06-20 08:42] LABS: CALCIUM 8.5 mg/dl (8.5-10.1); CREATININE 0.74 mg/dl (0.60-1.40); POTASSIUM 3.4 mmol/L (3.5-5.1)
--- NOTE | 2018-06-20 10:32 | Critical Care Consultation ---
Critical Care Consultation Date of Consultation: Jun 20, 2018. Attending Physician: Obie Lagunas D.O. Reason for Consultation: Hyponatremia in the setting of chronic alcohol abuse History of Present Illness 63 yo male with a h/o HTN, HLD, Etoh/tobacco abuse admitted to the ICU following presentation to the ED with severe hyponatremia. Patient has been experiencing frequent falls and increased confusion as of late. Family reports that over the past month he has experienced a 30 lb weight loss and has primarily received calories from beer. He fell early yesterday while attempting to sit, missing the chair completely. He was subsequently unable to stand up on his own. History obtained per admission H&P. Unable to obtain ROS at this time. The patient is able to follow simple commands , but remains with eyes closed unable to respond verbally Past Medical/Surgical History HTN, HLP, abnormal LFTs, thalamic CVA in 2013, EtOH and tobacco abuse Social History Smoking Status: Current Every Day Smoker Smokeless Tobacco Use: No Alcohol Use: heavy Drug Use: marijuana Marital Status: Housing Status: lives with family Occupation Status: unemployed Allergies Coded Allergies: No Known Allergies (Unverified , 11/29/13) Home Medications Scheduled Aspirin (Aspirin Ec), 81 MG PO DAILY Furosemide (Lasix), 20 MG PO DAILY Hydrochlorothiazide (Hctz), 25 MG PO DAILY Labetalol (Normodyne), 200 MG PO BID Losartan Potassium (Cozaar), 100 MG PO DAILY Pravastatin Sodium (Pravastatin Sodium), 1 TAB PO DAILY Sildenafil Citrate (Pulmonary (Sildenafil Citrate), 40-60 MG PO prn ud Current Inpatient Medications Current Inpatient Medications Medications (Trade) Dose Ordered Sig/Rachel Route Start Time Stop Time Status Last Admin Dose Admin Enoxaparin Sodium (Lovenox Inj) 40 mg Q24H SQ 06/20/18 08:00 07/20/18 07:59 06/20/18 07:55 40 MG Acetaminophen (Tylenol Tab) 650 mg Q4H PRN PO 06/19/18 21:30 07/19/18 21:29 Ondansetron HCl (Zofran Inj) 4 mg Q6H PRN IV 06/19/18 21:30 07/19/18 21:29 Miscellaneous Information (Icu Protocol For Hyperglycemia) 1 ea PRN PRN N/A 06/19/18 21:30 06/21/18 21:29 Aspirin (Ecotrin Tab) 81 mg DAILY PO 06/20/18 09:00 07/20/18 08:59 06/20/18 07:55 81 MG Labetalol HCl (Normodyne Tab) 200 mg BID PO 06/20/18 09:00 07/20/18 08:59 06/20/18 07:56 200 MG Losartan Potassium (coZAAR TAB) 100 mg DAILY PO 06/20/18 09:00 07/20/18 08:59 06/20/18 07:55 100 MG Pravastatin Sodium (Pravachol Tab) 10 mg DAILY PO 06/20/18 09:00 07/20/18 08:59 06/20/18 07:56 10 MG Thiamine HCl 100 mg/Syringe 10 ml @ 2 mls/min Q24H IV 06/19/18 23:30 07/19/18 23:29 06/20/18 01:07 2 MLS/MIN Lorazepam (Ativan Inj) 1 mg ONE PRN IV 06/19/18 22:45 Cephalexin Monohydrate (Keflex Cap) 500 mg QID PO 06/20/18 09:00 06/30/18 08:59 06/20/18 07:55 500 MG Dextrose 1,000 ml @ 150 mls/hr Q6H40M IV 06/20/18 00:30 07/20/18 00:29 06/20/18 01:08 100 MLS/HR Desmopressin Acetate 2 mcg/ Sodium Chloride 50.5 ml @ 100 mls/hr Q8H IV 06/20/18 01:00 07/20/18 00:59 06/20/18 08:55 100 MLS/HR Review of Systems Unable to obtain ROS at this time. The patient is able to follow simple commands , but remains with eyes closed unable to respond verbally Physical Exam Date Time Temp Pulse Resp B/P (MAP) Pulse Ox O2 Delivery O2 Flow Rate FiO2 06/20/18 09:16 58 16 106/75 (85) 95 Room Air 06/20/18 08:00 36.4 69 16 154/85 (108) 99 Room Air 06/20/18 08:00 99 Room Air 06/20/18 05:57 Nasal Cannula 2.0 06/20/18 05:02 58 16 132/81 (98) 99 06/20/18 04:02 36.4 61 17 122/84 (97) 99 06/20/18 03:01 61 15 139/80 (99) 100 06/20/18 02:03 66 15 130/74 (92) 100 06/20/18 01:07 62 14 110/73 (85) 99 06/20/18 00:01 36.7 69 17 169/98 (121) 95 06/19/18 23:38 36.7 68 22 146/84 100 Nasal Cannula 2.0 06/19/18 23:01 36.7 146/84 (104) 06/19/18 22:35 70 18 108/66 98 06/19/18 21:48 98 Nasal Cannula 3.0 06/19/18 21:45 89 Room Air 06/19/18 21:35 67 16 127/81 94 Room Air 06/19/18 18:04 37.0 72 18 138/86 98 Room Air 06/19/18 18:03 72 General Appearance: no apparent distress Head: normocephalic, atraumatic Eyes: PERRLA, no discharge Neck: normal range of motion, no tenderness, trachea midline, no stridor, supple, no thyromegaly, no lymphadenopathy Respiratory: breath sounds normal, clear to auscultation, clear to percussion, no respiratory distress, no tenderness, accessory muscle use, chest wall tenderness Cardiovasular: regular rate/rhythm, normal S1S2, no M/G/R, no murmur, no gallop , normal peripheral pulses Abdomen: non tender, normal bowel sounds, no rebound, no masses, no guarding, no organomegaly Lower Extremities: other (left foot deformity, surrounding erythema and warmth ) Neuro: normal motor exam (limited motor exam in bed, the patient has equal strenght in upper and lower extremities ), normal sensation Laboratory Results Last 24 Hours Test 06/19/18 18:30 06/19/18 19:08 06/19/18 23:40 06/20/18 00:00 White Blood Count 4.71 K/uL Red Blood Count 3.80 M/uL Hemoglobin 12.9 g/dL Hematocrit 33.9 % Mean Corpuscular Volume 89.2 fL Mean Corpuscular Hemoglobin 33.9 pg Mean Corpuscular Hemoglobin Concent 38.1 g/dl Platelet Count 113 K/uL Neutrophils (%) (Auto) 67.1 % Lymphocytes (%) (Auto) 20.2 % Monocytes (%) (Auto) 9.6 % Eosinophils (%) (Auto) 1.5 % Basophils (%) (Auto) 0.8 % Neutrophils # (Auto) 3.16 K/uL Lymphocytes # (Auto) 0.95 K/uL Monocytes # (Auto) 0.45 K/uL Eosinophils # (Auto) 0.07 K/uL Basophils # (Auto) 0.04 K/uL Immature Granulocyte % (Auto) 0.8 % Immature Granulocyte # (Auto) 0.04 K/uL Red Blood Cell Morphology Unremarkable Erythrocyte Sedimentation Rate 26 mm/hr Prothrombin Time 10.3 SECONDS Prothromb Time International Ratio 1.0 Activated Partial Thromboplast Time 28.7 SECONDS Partial Thromboplastin Ratio 1.1 Sodium Level 110 mmol/L 118 mmol/L Potassium Level 3.2 mmol/L 3.0 mmol/L Chloride Level 74 mmol/L 82 mmol/L Carbon Dioxide Level 26 mmol/L 28 mmol/L Anion Gap 10.0 mmol/L 7.0 mmol/L Blood Urea Nitrogen 9 mg/dl 8 mg/dl Creatinine 0.97 mg/dl 0.79 mg/dl Est Creatinine Clear Calc Drug Dose 85.8 ml/min 96.3 ml/min Estimated GFR () 94.6 109.2 Estimated GFR (Non- 81.6 94.2 BUN/Creatinine Ratio 9.2 10.1 Random Glucose 82 mg/dl 82 mg/dl Calcium Level 9.1 mg/dl 9.0 mg/dl Phosphorus Level 2.8 mg/dl Magnesium Level 1.9 mg/dl Total Bilirubin 0.6 mg/dl Direct Bilirubin 0.2 mg/dl Aspartate Amino Transf (AST/SGOT) 57 U/L Alanine Aminotransferase (ALT/SGPT) 79 U/L Alkaline Phosphatase 119 U/L Ammonia < 10.0 umol/L Total Creatine Kinase 106 U/L Creatine Kinase MB 2.9 ng/ml Creatine Kinase MB Ratio 2.7 Troponin I < 0.015 ng/ml C-Reactive Protein 0.89 mg/dl Total Protein 7.3 gm/dl Albumin 3.5 gm/dl Lipase 220 U/L Thyroid Stimulating Hormone (TSH) 0.783 uIu/ml Acetaminophen Level < 2 ug/ml Ethyl Alcohol mg/dL 46.0 mg/dl Urine Color YELLOW Urine Appearance CLEAR Urine pH 5.5 Urine Specific [place] 1.008 Urine Protein NEG Urine Glucose (UA) NEG Urine Ketones NEG Urine Occult Blood NEG Urine Nitrite NEG Urine Bilirubin NEG Urine Urobilinogen NEG Urine Leukocyte Esterase NEG Urine WBC (Auto) /hpf Urine RBC (Auto) /hpf Urine Hyaline Casts (Auto) /lpf Urine Epithelial Cells (Auto) /lpf Urine Bacteria (Auto) Urine RBC 0-4 /hpf Urine WBC 0 /hpf Urine Epithelial Cells 0-5 /lpf Urine Bacteria NEG Urine Hyaline Casts 0 /lpf Urine Opiates Screen NEG Urine Methadone, Qualitative NEG Urine Barbiturates NEG Urine Phencyclidine (PCP) Level NEG Ur Amphetamine/Methamphetamine NEG MDMA (Ecstasy) Screen NEG Urine Benzodiazepines Screen NEG Urine Cocaine Metabolite NEG Urine Marijuana (THC) NEG Osmolality 235 mOsm/kg Random Cortisol 14.66 mcg/dl Urine Osmolality 398 mOms/kg Test 06/20/18 02:39 06/20/18 04:39 06/20/18 07:46 Sodium Level 121 mmol/L 120 mmol/L 119 mmol/L Potassium Level 3.3 mmol/L 3.6 mmol/L 3.4 mmol/L Chloride Level 84 mmol/L 84 mmol/L 84 mmol/L Carbon Dioxide Level 27 mmol/L 27 mmol/L 27 mmol/L Anion Gap 10.0 mmol/L 9.0 mmol/L 8.0 mmol/L Blood Urea Nitrogen 8 mg/dl 8 mg/dl 8 mg/dl Creatinine 0.74 mg/dl 0.78 mg/dl 0.74 mg/dl Est Creatinine Clear Calc Drug Dose 102.8 ml/min 97.5 ml/min 102.8 ml/min Estimated GFR () 112.2 109.8 112.2 Estimated GFR (Non- 96.8 94.7 96.8 BUN/Creatinine Ratio 10.5 9.8 11.2 Random Glucose 96 mg/dl 103 mg/dl 99 mg/dl Calcium Level 8.2 mg/dl 8.1 mg/dl 8.5 mg/dl Vitamin B12 Level 887 pg/mL Folate 16.17 ng/mL Diagnostic Results CHEST ONE VIEW PORTABLE HISTORY: 63 years-old Male Evaluate Fever/Sepsis acute fever with sepsis COMPARISON: Chest radiograph 11/29/2013 TECHNIQUE: Portable AP view the chest FINDINGS: Cardiac silhouette is normal in size. Subsegmental right basilar opacities suggest atelectasis. Calcification of the aorta. No pneumothorax, or overt pulmonary edema. Blunting of left costophrenic angle suggests trace effusion. No lobar airspace consolidation. Bones of the chest appear grossly intact. The patient is slightly rotated to the left. IMPRESSION: 1. No lobar airspace consolidation to suggest pneumonia. 2. Trace left pleural effusion. The above report was generated using voice recognition software. It may contain grammatical, syntax or spelling errors. Electronically signed by: Art Keen M.D. 06/19/2018 6:25 PM HEAD WITHOUT CONTRAST (CT) CLINICAL HISTORY: 63 years-old Male with Evaluate Fever/Sepsis. Acute fever with sepsis TECHNIQUE: Multiple axial CT images of the head were obtained without contrast. A dose lowering technique was utilized adhering to the principles of ALARA. CT DOSE: 537.48 mGy.cm COMPARISON: CT head 11/29/2013 FINDINGS: No acute intracranial hemorrhage, midline shift, intracranial mass, hydrocephalus, territorial ischemia or abnormal extra-axial collection. The calvarium is intact. The paranasal sinuses, mastoid air cells, and middle ear cavities are clear. IMPRESSION: No acute intracranial abnormality. 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 Corticated bone fragments about the tibiotalar joint with chronic remodeling. Demineralized appearance of the bones. Moderate first MTP joint and at least mild multidigit interphalangeal osteoarthritis. No definite acute fracture or dislocation. Soft tissue swelling about the ankle with large joint effusion. IMPRESSION: 1. No acute fracture or dislocation. 2. Pes planus deformity with hindfoot valgus and advanced degenerative changes with remodeling about the hindfoot as above. 3. Soft tissue swelling about the ankle with joint effusion. The above report was generated using voice recognition software. It may contain grammatical, syntax or spelling errors. EKG The study demonstrates sinus rhythm with 1st degree AV block, IQ=833, normal axis, no evidence of acute ischemia Assessment & Plan 63 yo male with a h/o HTN, HLD, Etoh/tobacco abuse admitted to the ICU following presentation to the ED with severe hyponatremia. Neuro - Metabolic encephalopathy 2/2 hyponatremia vs dementia vs delirium in the setting of alcohol withdraw - Mental status changes most likely secondary to a combination of factor listed above - Patient is able to follow commands, equal strength in upper and lower extremities, sensation intact throughout - Plan is to slowly correct sodium, monitor withdraw symptoms, seizure activity. Regular neurologic checks - Follow CIWA, seizure protocols, PRN Ativan per protocol - Etoh level of 46, last drink morning of 06/19 Cardiology - History of HTN, HLD - Continue Cozaar 100 mg, Labetalol 200 mg BID - Currently holding HCTZ in the setting of hyponatremia - Patient has been maintaining pressures despite appearing dry on exam - No signs of congestive heart failure, EKG no acute changes - Troponin negative Pulmonology - Sating well on 2L NC - Significant smoking history - No signs or sx of PNA, CXR unremarkable GI - Keeping the patient NPO - Restricting food in the setting of precipitous increase in Na since admission yesterday evening - No restrictions on fluid at this time - Abdominal USG -- evaluate for liver cirrhosis, chronic pancreatitis and AAA in the setting of significant Etoh and tobacco abuse - Drug tox negative Renal/Lytes - Hypovolemic, hypertonic, hyponatremia--likely secondary to beer proteinemia. - Serum Osm 235, Urine osm 60, urine Na 8 - Assessing for additional extra-renal losses-no signs or symptoms of peripheral edema, but will check Abdominal USG to assess for cirrhosis, ascites - Patient received hypertonic fluids, IV banana bag and K in the ED and had a precipitous increase in Na 110--->118. Was subsequently given free water, DDAVP , has plateaued at 120 - Q 4 Na checks, if the patients continues to drop, with dc DDAVP and fluid restrict the patient - If the patient drops more than 4 points will consider adding isotonic fluids - Plan is to increase sodium no more 0.5 mmol/hr, 12 mmol/day ENDO - Vit B12, folate pending - TSH WNL - HbA1c pending - Lipids Heme - Stable, continue to follow H/H ID - Deformity of left foot, mild cellulitis - Keflex 500 mg q 6 DVT ppx - Lovenox Code - Full Resident Physician Supervision Note: Dr. Kim was resident physician during care of patient. I separately evaluated patient and did history and exam. I discussed the case with the resident and generally agree with the findings and plan. Patient critically ill due to severe hyponatremia requiring desmopressin and significant manipulation of intravenous electrolytes. I have personally spent 45 minutes of critical care time in the direct management of this patient. This is a life/limb threatening event. This includes time spent evaluating patient, direct bedside care, chart review, placing orders, interpretation of diagnostic studies, discussion with consultants, patient, and/or family members regarding treatment decisions, as well as other required patient management activities. This time is exclusive of all separately billable procedures, and teaching time and separate from and in addition to any other critical care service time. Documented By: Neri Merrill DO
[2018-06-20] MEDS ORDERED: FAMOTIDINE 20 MG TAB PO ONE (11:45)
--- NOTE | 2018-06-20 11:45 | Progress Note ---
Subjective Date of Service: Jun 20, 2018. Subjective Pt evaluation today including: conversation w/ patient, physical exam, chart review, lab review, review of studies, conversation w/ car sales consultant, review of inpatient medication list Voiding: garcia catheter in place Complaint of heartburn, want to eat some food, otherwise no complaint, Problem List Medical Problems: (1) Alcoholism Status: Acute (2) Altered mental status, unspecified Status: Acute (3) Weakness Status: Acute Review of Systems Constitutional: + weakness, + fatigue, No fever, No chills, No sweats, No weight loss, No problem reported Eyes: No worsening of vision, No eye pain, No redness, No discharge, No diplopia ENT: No hearing loss, No unusual epistaxis, No nasal symptoms, No sore throat, No tinnitus, No dental problems, No trouble swallowing Respiratory: No cough, No sputum, No wheezing, No shortness of breath, No dyspnea on exertion, No dyspnea at rest, No hemoptysis Cardiac: No chest pain, No orthopnea, No PND, No edema, No claudication, No palpitations Abdomen: + nausea, No pain, No vomiting, No diarrhea, No constipation Musculoskeletal: No joint pain, No muscle pain, No swelling, No calf pain Male : No dysuria, No urinary frequency, No incontinence, No nocturia more than once/night, No slowing stream, No hematuria Neurologic: No memory loss, No paralysis, No weakness, No numbness/tingling, No vertigo, No balance problems Psychiatric: No depression symptoms, No anhedonism, No anxiety, No insomnia, No substance abuse Heme: No abnormal bleeding/bruising, No clotting problems, No swollen lymph nodes, No night sweats Endo: No fatigue, No excessive thirst, No excessive urination Skin: No rash, No itch, No new/changing skin lesions, No color change, No bleeding Objective Vital Signs Date Time Temp Pulse Resp B/P (MAP) Pulse Ox O2 Delivery O2 Flow Rate FiO2 06/20/18 09:16 58 16 106/75 (85) 95 Room Air 06/20/18 08:00 36.4 69 16 154/85 (108) 99 Room Air 06/20/18 08:00 99 Room Air 06/20/18 05:57 Nasal Cannula 2.0 06/20/18 05:02 58 16 132/81 (98) 99 06/20/18 04:02 36.4 61 17 122/84 (97) 99 06/20/18 03:01 61 15 139/80 (99) 100 06/20/18 02:03 66 15 130/74 (92) 100 06/20/18 01:07 62 14 110/73 (85) 99 06/20/18 00:01 36.7 69 17 169/98 (121) 95 06/19/18 23:38 36.7 68 22 146/84 100 Nasal Cannula 2.0 06/19/18 23:01 36.7 146/84 (104) 06/19/18 22:35 70 18 108/66 98 06/19/18 21:48 98 Nasal Cannula 3.0 06/19/18 21:45 89 Room Air 06/19/18 21:35 67 16 127/81 94 Room Air 06/19/18 18:04 37.0 72 18 138/86 98 Room Air 06/19/18 18:03 72 Physical Exam General Appearance: WD/WN, no apparent distress Eyes: normal inspection, PERRL, EOMI, sclerae normal ENT: normal ENT inspection, hearing grossly normal, pharynx normal Neck: supple, no adenopathy, thyroid normal, no JVD, no carotid bruits, trachea midline Respiratory/Chest: chest non-tender, lungs clear, normal breath sounds, no respiratory distress, no accessory muscle use Cardiovascular: regular rate, rhythm, no edema, no gallop, no JVD, no murmur Abdomen: normal bowel sounds, non tender, soft, no organomegaly, no pulsatile mass, + pertinent finding (Garcia catheter in place with clean and yellow urine) Extremities: normal range of motion, non-tender, normal inspection, no pedal edema, no calf tenderness, normal capillary refill, pelvis stable Neurologic/Psychiatric: metal miner II-XII nml as tested, no motor/sensory deficits, alert, normal mood/affect, oriented x 3 Skin: normal color, warm/dry, no rash Lymphatic: no adenopathy Laboratory Results Last 24 Hours Test 06/19/18 18:30 06/19/18 19:08 06/19/18 23:40 06/20/18 00:00 White Blood Count 4.71 K/uL Red Blood Count 3.80 M/uL Hemoglobin 12.9 g/dL Hematocrit 33.9 % Mean Corpuscular Volume 89.2 fL Mean Corpuscular Hemoglobin 33.9 pg Mean Corpuscular Hemoglobin Concent 38.1 g/dl Platelet Count 113 K/uL Neutrophils (%) (Auto) 67.1 % Lymphocytes (%) (Auto) 20.2 % Monocytes (%) (Auto) 9.6 % Eosinophils (%) (Auto) 1.5 % Basophils (%) (Auto) 0.8 % Neutrophils # (Auto) 3.16 K/uL Lymphocytes # (Auto) 0.95 K/uL Monocytes # (Auto) 0.45 K/uL Eosinophils # (Auto) 0.07 K/uL Basophils # (Auto) 0.04 K/uL Immature Granulocyte % (Auto) 0.8 % Immature Granulocyte # (Auto) 0.04 K/uL Red Blood Cell Morphology Unremarkable Erythrocyte Sedimentation Rate 26 mm/hr Prothrombin Time 10.3 SECONDS Prothromb Time International Ratio 1.0 Activated Partial Thromboplast Time 28.7 SECONDS Partial Thromboplastin Ratio 1.1 Sodium Level 110 mmol/L 118 mmol/L Potassium Level 3.2 mmol/L 3.0 mmol/L Chloride Level 74 mmol/L 82 mmol/L Carbon Dioxide Level 26 mmol/L 28 mmol/L Anion Gap 10.0 mmol/L 7.0 mmol/L Blood Urea Nitrogen 9 mg/dl 8 mg/dl Creatinine 0.97 mg/dl 0.79 mg/dl Est Creatinine Clear Calc Drug Dose 85.8 ml/min 96.3 ml/min Estimated GFR () 94.6 109.2 Estimated GFR (Non- 81.6 94.2 BUN/Creatinine Ratio 9.2 10.1 Random Glucose 82 mg/dl 82 mg/dl Calcium Level 9.1 mg/dl 9.0 mg/dl Phosphorus Level 2.8 mg/dl Magnesium Level 1.9 mg/dl Total Bilirubin 0.6 mg/dl Direct Bilirubin 0.2 mg/dl Aspartate Amino Transf (AST/SGOT) 57 U/L Alanine Aminotransferase (ALT/SGPT) 79 U/L Alkaline Phosphatase 119 U/L Ammonia < 10.0 umol/L Total Creatine Kinase 106 U/L Creatine Kinase MB 2.9 ng/ml Creatine Kinase MB Ratio 2.7 Troponin I < 0.015 ng/ml C-Reactive Protein 0.89 mg/dl Total Protein 7.3 gm/dl Albumin 3.5 gm/dl Lipase 220 U/L Thyroid Stimulating Hormone (TSH) 0.783 uIu/ml Acetaminophen Level < 2 ug/ml Ethyl Alcohol mg/dL 46.0 mg/dl Urine Color YELLOW Urine Appearance CLEAR Urine pH 5.5 Urine Specific [place] 1.008 Urine Protein NEG Urine Glucose (UA) NEG Urine Ketones NEG Urine Occult Blood NEG Urine Nitrite NEG Urine Bilirubin NEG Urine Urobilinogen NEG Urine Leukocyte Esterase NEG Urine WBC (Auto) /hpf Urine RBC (Auto) /hpf Urine Hyaline Casts (Auto) /lpf Urine Epithelial Cells (Auto) /lpf Urine Bacteria (Auto) Urine RBC 0-4 /hpf Urine WBC 0 /hpf Urine Epithelial Cells 0-5 /lpf Urine Bacteria NEG Urine Hyaline Casts 0 /lpf Urine Opiates Screen NEG Urine Methadone, Qualitative NEG Urine Barbiturates NEG Urine Phencyclidine (PCP) Level NEG Ur Amphetamine/Methamphetamine NEG MDMA (Ecstasy) Screen NEG Urine Benzodiazepines Screen NEG Urine Cocaine Metabolite NEG Urine Marijuana (THC) NEG Osmolality 235 mOsm/kg Random Cortisol 14.66 mcg/dl Urine Osmolality 398 mOms/kg Test 06/20/18 02:39 06/20/18 04:39 06/20/18 07:46 06/20/18 11:16 Sodium Level 121 mmol/L 120 mmol/L 119 mmol/L Potassium Level 3.3 mmol/L 3.6 mmol/L 3.4 mmol/L Chloride Level 84 mmol/L 84 mmol/L 84 mmol/L Carbon Dioxide Level 27 mmol/L 27 mmol/L 27 mmol/L Anion Gap 10.0 mmol/L 9.0 mmol/L 8.0 mmol/L Blood Urea Nitrogen 8 mg/dl 8 mg/dl 8 mg/dl Creatinine 0.74 mg/dl 0.78 mg/dl 0.74 mg/dl Est Creatinine Clear Calc Drug Dose 102.8 ml/min 97.5 ml/min 102.8 ml/min Estimated GFR () 112.2 109.8 112.2 Estimated GFR (Non- 96.8 94.7 96.8 BUN/Creatinine Ratio 10.5 9.8 11.2 Random Glucose 96 mg/dl 103 mg/dl 99 mg/dl Calcium Level 8.2 mg/dl 8.1 mg/dl 8.5 mg/dl Vitamin B12 Level 887 pg/mL Folate 16.17 ng/mL Bedside Glucose 112 mg/dl Assessment and Plan 63yo male admitted on June 19, 2018 because of severe acute hyponatremia Uz=153 and alcohol abuse Severe hyponatremia, acute euvolemic hyponatremia. Tq=144 upon admission , stable slowly improving, current sodium level is 120 pt is High risk for osmotic demyelination syndrome (ODS) , his risk for ODS includes with hypokalemia, alcoholism, and liver disease. The maximum rate of correction should be 8 mEq/L in any 24-hour period. Continue closely monitoring of sodium levels and correct accordingly per ICU team PICC line placed in ER Ddx to include medication effects as patient on HCTZ, less likely secondary to Lasix. Poor solute intake with beer potomania. Also consider SIADH, liver dysfunction, endocrine etiology. NPO except medications Heartburn, ordered Pepcid p.o. twice daily EtOH abuse and alcohol intoxication upon admission last drink was in the a.m. on the day of admission No reported history of withdrawall, continue seizure precautions, banana bag , Thiamine, MVI and Folic acid, CIWA protocol with IV Ativan PRN Left foot deformity with mild cellulitis, x-ray has rule out fracture, continue Keflex 500mg po q 6 hours , may consider Podiatry consultation HTN, Continue Cozaar 100mg po daily, Continue Labetalol 200mg po BID HLP - stable, chronic, Continue Pravastatin, to hold if renal function getting worse Code - Full Discussed with patient answered all question Continued [facility] stay due to: multiple IV medications needed Discharge planning: uncertain
[2018-06-20 12:56] LABS: CALCIUM 8.1 mg/dl (8.5-10.1); CREATININE 0.77 mg/dl (0.60-1.40); PHOSPHORUS 2.6 mg/dl (2.5-4.9); POTASSIUM 3.6 mmol/L (3.5-5.1)
[2018-06-20 13:27] LABS: HEP C IGG 13 YRS+OLDER_RFLX NEG (NEG)
--- NOTE | 2018-06-20 14:16 | Nephrology Progress Note ---
Nephrology Progress Note Date of Service Jun 20, 2018. Chief Complaint Hyponatremia Sangita Harvey was seen and evaluated this afternoon. He feels well. Appetite is good. The patient's only complaint was his BP cuff. He denies headache. He denies shortness of breath. No nausea. Confusion improved. No tremor. Plan of care was discussed with Dr. Mcdermott and Dr. Kim. Review of Systems A complete review of systems was performed. Pertinent positives are noted above. All other systems are negative. Vital Signs Last 8 Hrs Date Time Temp Pulse Resp B/P (MAP) Pulse Ox O2 Delivery O2 Flow Rate FiO2 06/20/18 12:00 37.0 59 18 137/85 (102) 93 Room Air 06/20/18 09:16 58 16 106/75 (85) 95 Room Air 06/20/18 08:00 36.4 69 16 154/85 (108) 99 Room Air 06/20/18 08:00 99 Room Air I & O 24-Hour Column 06/21/18 07:59 Intake Total 745 ml Output Total 450 ml Balance 295 ml Last Recorded Weight Weight (Kilograms): 84.100 Physical Exam General Appearance: no apparent distress, + thin Head: normocephalic, atraumatic Eyes: normal inspection, sclerae normal ENT: normal ENT inspection, pharynx normal Neck: supple, no JVD Respiratory/Chest: lungs clear, no respiratory distress, no accessory muscle use Cardiovascular: regular rate, rhythm Abdomen/GI: non tender, soft Extremities/Musculoskelatal: normal inspection, no pedal edema Neurologic/Psych: alert, normal mood/affect Social History Smoking Status: Current every day smoker Smokeless Tobacco Use: No Alcohol Use: heavy Drug Use: marijuana Marital Status: Housing Status: lives with family Occupation: unemployed Laboratory Results Past 24 Hours 06/19/18 18:30 Red Blood Count 3.80, Mean Corpuscular Volume 89.2, Mean Corpuscular Hemoglobin 33.9, Mean Corpuscular Hemoglobin Concent 38.1, Neutrophils (%) (Auto) 67.1, Lymphocytes (%) (Auto) 20.2, Monocytes (%) (Auto) 9.6, Eosinophils (%) (Auto) 1.5, Basophils (%) (Auto) 0.8, Neutrophils # (Auto) 3.16, Lymphocytes # (Auto) 0.95, Monocytes # (Auto) 0.45, Eosinophils # (Auto) 0.07, Basophils # (Auto) 0.04 06/19/18 18:30 06/19/18 23:40 06/20/18 02:39 06/20/18 04:39 06/20/18 07:46 06/20/18 11:56 Test 06/19/18 18:30 06/19/18 19:08 06/19/18 23:40 06/20/18 00:00 White Blood Count 4.71 K/uL (4.8-10.8) Red Blood Count 3.80 M/uL (4.7-6.1) Hemoglobin 12.9 g/dL (14.0-18.0) Hematocrit 33.9 % (42-52) Mean Corpuscular Volume 89.2 fL (80-100) Mean Corpuscular Hemoglobin 33.9 pg (25-34) Mean Corpuscular Hemoglobin Concent 38.1 g/dl (32-36) Platelet Count 113 K/uL (130-400) Neutrophils (%) (Auto) 67.1 % Lymphocytes (%) (Auto) 20.2 % Monocytes (%) (Auto) 9.6 % Eosinophils (%) (Auto) 1.5 % Basophils (%) (Auto) 0.8 % Neutrophils # (Auto) 3.16 K/uL (1.4-6.5) Lymphocytes # (Auto) 0.95 K/uL (1.2-3.4) Monocytes # (Auto) 0.45 K/uL (0.11-0.59) Eosinophils # (Auto) 0.07 K/uL (0-0.5) Basophils # (Auto) 0.04 K/uL (0-0.2) Immature Granulocyte % (Auto) 0.8 % Immature Granulocyte # (Auto) 0.04 K/uL (0.00-0.02) Red Blood Cell Morphology Unremarkable Erythrocyte Sedimentation Rate 26 mm/hr (0-14) Prothrombin Time 10.3 SECONDS (9.0-12.0) Prothromb Time International Ratio 1.0 (0.9-1.1) Activated Partial Thromboplast Time 28.7 SECONDS (21.0-31.0) Partial Thromboplastin Ratio 1.1 Anion Gap 10.0 mmol/L (3-11) 7.0 mmol/L (3-11) Est Creatinine Clear Calc Drug Dose 85.8 ml/min 96.3 ml/min Estimated GFR () 94.6 109.2 Estimated GFR (Non- 81.6 94.2 BUN/Creatinine Ratio 9.2 (10-20) 10.1 (10-20) Calcium Level 9.1 mg/dl (8.5-10.1) 9.0 mg/dl (8.5-10.1) Phosphorus Level 2.8 mg/dl (2.5-4.9) Magnesium Level 1.9 mg/dl (1.8-2.4) Total Bilirubin 0.6 mg/dl (0.2-1) Direct Bilirubin 0.2 mg/dl (0-0.2) Aspartate Amino Transf (AST/SGOT) 57 U/L (15-37) Alanine Aminotransferase (ALT/SGPT) 79 U/L (12-78) Alkaline Phosphatase 119 U/L (45-117) Ammonia < 10.0 umol/L (11-32) Total Creatine Kinase 106 U/L (39-308) Creatine Kinase MB 2.9 ng/ml (0.5-3.6) Creatine Kinase MB Ratio 2.7 (0-3.0) Troponin I < 0.015 ng/ml (0-0.045) C-Reactive Protein 0.89 mg/dl (0-0.29) Total Protein 7.3 gm/dl (6.4-8.2) Albumin 3.5 gm/dl (3.4-5.0) Lipase 220 U/L (73-393) Thyroid Stimulating Hormone (TSH) 0.783 uIu/ml (0.300-4.500) Acetaminophen Level < 2 ug/ml (10-30) Ethyl Alcohol mg/dL 46.0 mg/dl (0-3) Urine Color YELLOW Urine Appearance CLEAR (CLEAR) Urine pH 5.5 (4.5-7.5) Urine Specific Admire 1.008 (1.000-1.030) Urine Protein NEG (NEG) Urine Glucose (UA) NEG (NEG) Urine Ketones NEG (NEG) Urine Occult Blood NEG (NEG) Urine Nitrite NEG (NEG) Urine Bilirubin NEG (NEG) Urine Urobilinogen NEG (NEG) Urine Leukocyte Esterase NEG (NEG) Urine WBC (Auto) /hpf (0-5) Urine RBC (Auto) /hpf (0-4) Urine Hyaline Casts (Auto) /lpf (0-5) Urine Epithelial Cells (Auto) /lpf (0-5) Urine Bacteria (Auto) (NEG) Urine RBC 0-4 /hpf (0-4) Urine WBC 0 /hpf (0-5) Urine Epithelial Cells 0-5 /lpf (0-5) Urine Bacteria NEG (NEG) Urine Hyaline Casts 0 /lpf (0-5) Urine Opiates Screen NEG (NEG) Urine Methadone, Qualitative NEG (NEG) Urine Barbiturates NEG (NEG) Urine Phencyclidine (PCP) Level NEG (NEG) Ur Amphetamine/Methamphetamine NEG (NEG) MDMA (Ecstasy) Screen NEG (NEG) Urine Benzodiazepines Screen NEG (NEG) Urine Cocaine Metabolite NEG (NEG) Urine Marijuana (THC) NEG (NEG) Osmolality 235 mOsm/kg (280-300) Random Cortisol 14.66 mcg/dl Urine Osmolality 398 mOms/kg (500-800) Test 06/20/18 02:39 06/20/18 04:39 06/20/18 07:46 06/20/18 11:16 Anion Gap 10.0 mmol/L (3-11) 9.0 mmol/L (3-11) 8.0 mmol/L (3-11) Est Creatinine Clear Calc Drug Dose 102.8 ml/min 97.5 ml/min 102.8 ml/min Estimated GFR () 112.2 109.8 112.2 Estimated GFR (Non- 96.8 94.7 96.8 BUN/Creatinine Ratio 10.5 (10-20) 9.8 (10-20) 11.2 (10-20) Calcium Level 8.2 mg/dl (8.5-10.1) 8.1 mg/dl (8.5-10.1) 8.5 mg/dl (8.5-10.1) Vitamin B12 Level 887 pg/mL (211-911) Folate 16.17 ng/mL (>5.38) Bedside Glucose 112 mg/dl (70-99) Test 06/20/18 11:56 06/20/18 12:56 06/20/18 13:04 Anion Gap 8.0 mmol/L (3-11) Est Creatinine Clear Calc Drug Dose 98.8 ml/min Estimated GFR () 110.4 Estimated GFR (Non- 95.2 BUN/Creatinine Ratio 12.0 (10-20) Calcium Level 8.1 mg/dl (8.5-10.1) Phosphorus Level 2.6 mg/dl (2.5-4.9) Magnesium Level 1.8 mg/dl (1.8-2.4) Iron Level mcg/dl (35-175) Total Iron Binding Capacity 189 mcg/dl (250-450) Ferritin 1247.8 ng/ml (8.0-388.0) Chemistry Specimen Hemolysis Hepatitis B Surface Antigen NEG (NEG) Hepatitis C Antibody NEG (NEG) Allergies Coded Allergies: No Known Allergies (Unverified , 11/29/13) Medications Current Inpatient Medications Medications (Trade) Dose Ordered Sig/Rachel Route Start Time Stop Time Status Last Admin Dose Admin Enoxaparin Sodium (Lovenox Inj) 40 mg Q24H SQ 06/20/18 08:00 07/20/18 07:59 06/20/18 07:55 40 MG Acetaminophen (Tylenol Tab) 650 mg Q4H PRN PO 06/19/18 21:30 07/19/18 21:29 Ondansetron HCl (Zofran Inj) 4 mg Q6H PRN IV 06/19/18 21:30 07/19/18 21:29 Miscellaneous Information (Icu Protocol For Hyperglycemia) 1 ea PRN PRN N/A 06/19/18 21:30 06/21/18 21:29 Aspirin (Ecotrin Tab) 81 mg DAILY PO 06/20/18 09:00 07/20/18 08:59 06/20/18 07:55 81 MG Labetalol HCl (Normodyne Tab) 200 mg BID PO 06/20/18 09:00 07/20/18 08:59 06/20/18 07:56 200 MG Losartan Potassium (coZAAR TAB) 100 mg DAILY PO 06/20/18 09:00 07/20/18 08:59 06/20/18 07:55 100 MG Pravastatin Sodium (Pravachol Tab) 10 mg DAILY PO 06/20/18 09:00 07/20/18 08:59 06/20/18 07:56 10 MG Thiamine HCl 100 mg/Syringe 10 ml @ 2 mls/min Q24H IV 06/19/18 23:30 07/19/18 23:29 06/20/18 01:07 2 MLS/MIN Lorazepam (Ativan Inj) 1 mg ONE PRN IV 06/19/18 22:45 Cephalexin Monohydrate (Keflex Cap) 500 mg QID PO 06/20/18 09:00 06/30/18 08:59 06/20/18 12:20 500 MG Dextrose 1,000 ml @ 150 mls/hr Q6H40M IV 06/20/18 00:30 07/20/18 00:29 06/20/18 01:08 100 MLS/HR Desmopressin Acetate 2 mcg/ Sodium Chloride 50.5 ml @ 100 mls/hr Q8H IV 06/20/18 01:00 07/20/18 00:59 06/20/18 08:55 100 MLS/HR Famotidine (Pepcid Tab) 20 mg BID PO 06/20/18 21:00 07/20/18 20:59 Impression (1) Hyponatremia (2) Hypokalemia (3) Alcohol dependence Mr. Wes Meyer is a 63-year-old male with hypertension, history of thalamic CVA, tobacco abuse and chronic alcohol use. He presented to the ED with more than 24 hours of decreased alertness, poor oral intake and generalized weakness. Laboratory evaluation is notable for hypokalemia and severe hyponatremia. Chronic, moderately symptomatic, severe hyponatremia. Rate of correction was excessive on admission. Patient autocorrected, Uosm 60, requiring desmopressin therapy and IV D5W. Serum sodium now stable at 118 mmol/L. I suggest continue desmopressin SQ to maintain Uosm > 300. Continue IVF to maintain serum sodium Patient appears euvolemic. Clinical presentation is consistent with photomania. Wes is a very high risk patient. Continue routine neurochecks and high risk assessment for DT's. Recommendations -- Monitor serum sodium + potassium q 4 hours -- Monitor serum magnesium and phosphorus twice daily -- Check urine osmolality at least twice daily -- Continue D5W to at least match urine output -- Encourage nutrition -- Continue Desmopressin through this evening -- Prevent any additional rise in serum sodium through this evening
--- NOTE | 2018-06-20 15:12 | DIAGNOSTIC IMAGING REPORT ---
ABDOMINAL ULTRASOUND COMPLETE HISTORY: elevated lfts. COMPARISON: None. FINDINGS: Pancreas: The pancreatic tail is obscured by overlying bowel gas. The remaining portions of the pancreas are within normal limits. Liver: The liver is echogenic consistent with fatty change. 20 cm in length. The main portal vein is patent. Gallbladder: No gallbladder wall thickening. No gallstones. CBD: 5 mm. Kidneys: No hydronephrosis. Spleen: Mildly enlarged measuring 13 cm in length. Aorta: Normal in caliber. IVC: Patent. IMPRESSION: 1. Mild hepatosplenomegaly. 2. Hepatic steatosis. 3. Normal gallbladder. No gallstones. Electronically signed by: Abner Herndon M.D. 06/20/2018 3:10 PM Dictated Date/Time: 06/20/2018 3:09 PM
[2018-06-20 16:46] LABS: CALCIUM 7.8 mg/dl (8.5-10.1); CREATININE 1.19 mg/dl (0.60-1.40); POTASSIUM 3.7 mmol/L (3.5-5.1)
[2018-06-20] MEDS ORDERED: NICOTINE 21 MG/24 HR TDSY TD ONE (18:30)
[2018-06-20] MEDS ORDERED: CHLORDIAZEPOXIDE 25 MG CAP PO SCH (18:45)
[2018-06-20] MEDS ORDERED: ALTEPLASE, RECOMBINANT 1 MG/ML 2 ML VIAL IV SCH (20:45)
[2018-06-20 21:28] LABS: CALCIUM 8.2 mg/dl (8.5-10.1); CREATININE 1.14 mg/dl (0.60-1.40); POTASSIUM 3.8 mmol/L (3.5-5.1)
[2018-06-20] MEDS: FAMOTIDINE 20 MG TAB PO SCH (21:32)
[2018-06-21] VITALS (19 sets, daily range): BP systolic 86–149; BP diastolic 59–97; PULSE 61–77; TEMP 36.5–37; O2SAT 92–100
[2018-06-21 00:40] LABS: CALCIUM 8.1 mg/dl (8.5-10.1); CREATININE 1.04 mg/dl (0.60-1.40); POTASSIUM 3.6 mmol/L (3.5-5.1)
--- NOTE | 2018-06-21 00:58 | Critical Care Progress Note ---
Critical Care Progress Note Date of Service Jun 21, 2018. ICU Day ICU Day Number: [address] Merrill Subjective Patient is alert and oriented. No complaints at this time. Objective General Appearance: no apparent distress Head: normocephalic, atraumatic Eyes: PERRLA, no discharge Neck: normal range of motion, no tenderness, trachea midline, no stridor, supple, no thyromegaly, no lymphadenopathy Respiratory: breath sounds normal, clear to auscultation, clear to percussion, no respiratory distress, no tenderness, accessory muscle use, chest wall tenderness Cardiovasular: regular rate/rhythm, normal S1S2, no M/G/R, no murmur, no gallop , normal peripheral pulses Abdomen: non tender, normal bowel sounds, no rebound, no masses, no guarding, no organomegaly Lower Extremities: other (left foot deformity, surrounding erythema and warmth ) Neuro: normal motor exam (limited motor exam in bed, the patient has equal strenght in upper and lower extremities ), normal sensation Assessment & Plan 63 yo male with a h/o HTN, HLD, Etoh/tobacco abuse admitted to the ICU following presentation to the ED with severe hyponatremia. Neuro - Metabolic encephalopathy 2/2 hyponatremia vs dementia vs delirium in the setting of alcohol withdraw - Mental status improving throughout day. Approximately 36 hours since his last drink. Etoh level on arrival was 46. - Patient is able to follow commands, equal strength in upper and lower extremities, sensation intact throughout - Follow CIWA, seizure protocols, PRN Ativan per protocol Cardiology - History of HTN, HLD - Continue Cozaar 100 mg, Labetalol 200 mg BID - Currently holding HCTZ in the setting of hyponatremia - Troponin negative Pulmonology - Sating well on RA - Significant smoking history - No signs or sx of PNA, CXR unremarkable GI - Tolerating a AHA diet - Abdominal USG --hepato steatosis present - Drug tox negative Renal/Lytes - Hypovolemic, hypertonic, hyponatremia--likely secondary to beer proteinemia. - Followed by Nephrology appreciate recommendations, replacement strategy; 6-7 meq per 24 hours - Serum Osm 235, Urine osm 60, urine Na 8 - Patient received hypertonic fluids, IV banana bag and K in the ED and had a precipitous increase in Na 110--->118. Was subsequently given free water, DDAVP , has plateaued this evening at 117. - Q 4 Na checks, DDAVP was discontinued - If the patient drops more than 4 points will consider adding isotonic fluid ENDO - Vit B12, folate WNL - TSH WNL - HbA1c pending Heme -Pancytopenia likely secondary to underlying disease process: Anemia of chronic disease secondary to alcoholism. Folic acid and B12 levels within acceptable limits. ID - Deformity of left foot, mild cellulitis - Keflex 500 mg q 6 DVT ppx - Lovenox Code - Full Dr. Kim was resident physician during care of patient. I separately evaluated patient for murrell portions of the history and the exam. I was present during the critical portion of medical desicsion making, and I discussed the case with the resident. I generally agree with the findings and plan. Patient was discussed on multidisciplinary rounds Patient still critically ill due to severe hyponatremia. Starting empiric Librium for alcohol withdrawal given heavy alcohol use history. Supplemental thiamine and folic acid, multivitamin by mouth. Holding additional desmopressin at this time, patient tolerating diet added normal saline at 100 ML 's per hour. Still checking sodiums every 4, goal sodium today 125. Daily magnesium oxide 400 mg twice daily I have personally spent 40 minutes of critical care time in the direct management of this patient. This is a life/limb threatening event. This includes time spent evaluating patient, direct bedside care, chart review, placing orders, interpretation of diagnostic studies, discussion with consultants, patient, and/or family members regarding treatment decisions, as well as other required patient management activities. This time is exclusive of all separately billable procedures, and teaching time and separate from and in addition to any other critical care service time. Consults & Procedures Consultants: Dr. Pickard, Nephrology Data Medications: Current Inpatient Medications Medications (Trade) Dose Ordered Sig/Rachel Route Start Time Stop Time Status Last Admin Dose Admin Enoxaparin Sodium (Lovenox Inj) 40 mg Q24H SQ 06/20/18 08:00 07/20/18 07:59 06/20/18 07:55 40 MG Acetaminophen (Tylenol Tab) 650 mg Q4H PRN PO 06/19/18 21:30 07/19/18 21:29 Ondansetron HCl (Zofran Inj) 4 mg Q6H PRN IV 06/19/18 21:30 07/19/18 21:29 Miscellaneous Information (Icu Protocol For Hyperglycemia) 1 ea PRN PRN N/A 06/19/18 21:30 06/21/18 21:29 Aspirin (Ecotrin Tab) 81 mg DAILY PO 06/20/18 09:00 07/20/18 08:59 06/20/18 07:55 81 MG Labetalol HCl (Normodyne Tab) 200 mg BID PO 06/20/18 09:00 07/20/18 08:59 06/20/18 21:32 200 MG Losartan Potassium (coZAAR TAB) 100 mg DAILY PO 06/20/18 09:00 07/20/18 08:59 06/20/18 07:55 100 MG Pravastatin Sodium (Pravachol Tab) 10 mg DAILY PO 06/20/18 09:00 07/20/18 08:59 06/20/18 07:56 10 MG Thiamine HCl 100 mg/Syringe 10 ml @ 2 mls/min Q24H IV 06/19/18 23:30 07/19/18 23:29 06/20/18 01:07 2 MLS/MIN Lorazepam (Ativan Inj) 1 mg ONE PRN IV 06/19/18 22:45 Cephalexin Monohydrate (Keflex Cap) 500 mg QID PO 06/20/18 09:00 06/30/18 08:59 06/20/18 21:32 500 MG Dextrose 1,000 ml @ 150 mls/hr Q6H40M IV 06/20/18 00:30 07/20/18 00:29 06/20/18 01:08 100 MLS/HR Desmopressin Acetate 2 mcg/ Sodium Chloride 50.5 ml @ 100 mls/hr Q8H IV 06/20/18 01:00 07/20/18 00:59 Future Hold 06/20/18 08:55 100 MLS/HR Famotidine (Pepcid Tab) 20 mg BID PO 06/20/18 21:00 07/20/18 20:59 06/20/18 21:32 20 MG Heparin Sodium (Porcine) (Heparin 10 Unit/ ml 5 ml Flush) 5 ml PRN PRN FLUSH 06/20/18 15:00 07/20/18 14:59 Nicotine (Nicoderm Cq 21MG Patch) 1 patch QAM TD 06/21/18 09:00 07/21/18 08:59 Miscellaneous (Remove Nicoderm Patch) 1 ea HS N/A 06/20/18 21:00 07/20/18 20:59 06/20/18 21:00 1 EA Lorazepam (Ativan Tab) PRN Dosing -Active Protocol UD PRN PO 06/20/18 19:00 07/20/18 18:59 Miscellaneous Information (Nursing Verbal Med Order) 1 ea ONE ONCE N/A 06/21/18 00:00 06/21/18 00:01 UNV Vital Signs: Date Time Temp Pulse Resp B/P (MAP) Pulse Ox O2 Delivery O2 Flow Rate FiO2 06/20/18 20:00 98 Room Air 06/20/18 18:00 69 20 112/75 (87) 99 Room Air 06/20/18 16:00 36.9 68 20 122/86 (98) 99 Room Air 06/20/18 14:57 65 20 129/82 (98) Room Air 06/20/18 12:00 37.0 59 18 137/85 (102) 93 Room Air 06/20/18 09:16 58 16 106/75 (85) 95 Room Air 06/20/18 08:00 36.4 69 16 154/85 (108) 99 Room Air 06/20/18 08:00 99 Room Air 06/20/18 05:57 Nasal Cannula 2.0 06/20/18 05:02 58 16 132/81 (98) 99 06/20/18 04:02 36.4 61 17 122/84 (97) 99 06/20/18 03:01 61 15 139/80 (99) 100 06/20/18 02:03 66 15 130/74 (92) 100 06/20/18 01:07 62 14 110/73 (85) 99 Laboratory Results: Last 24 Hours Test 06/20/18 02:39 06/20/18 04:39 06/20/18 07:46 06/20/18 11:16 Sodium Level 121 mmol/L 120 mmol/L 119 mmol/L Potassium Level 3.3 mmol/L 3.6 mmol/L 3.4 mmol/L Chloride Level 84 mmol/L 84 mmol/L 84 mmol/L Carbon Dioxide Level 27 mmol/L 27 mmol/L 27 mmol/L Anion Gap 10.0 mmol/L 9.0 mmol/L 8.0 mmol/L Blood Urea Nitrogen 8 mg/dl 8 mg/dl 8 mg/dl Creatinine 0.74 mg/dl 0.78 mg/dl 0.74 mg/dl Est Creatinine Clear Calc Drug Dose 102.8 ml/min 97.5 ml/min 102.8 ml/min Estimated GFR () 112.2 109.8 112.2 Estimated GFR (Non- 96.8 94.7 96.8 BUN/Creatinine Ratio 10.5 9.8 11.2 Random Glucose 96 mg/dl 103 mg/dl 99 mg/dl Calcium Level 8.2 mg/dl 8.1 mg/dl 8.5 mg/dl Vitamin B12 Level 887 pg/mL Folate 16.17 ng/mL Bedside Glucose 112 mg/dl Test 06/20/18 11:56 06/20/18 14:10 06/20/18 16:13 06/20/18 20:28 Sodium Level 118 mmol/L 116 mmol/L 116 mmol/L Potassium Level 3.6 mmol/L 3.7 mmol/L 3.8 mmol/L Chloride Level 84 mmol/L 84 mmol/L 83 mmol/L Carbon Dioxide Level 27 mmol/L 27 mmol/L 26 mmol/L Anion Gap 8.0 mmol/L 5.0 mmol/L 8.0 mmol/L Blood Urea Nitrogen 9 mg/dl 10 mg/dl 14 mg/dl Creatinine 0.77 mg/dl 1.19 mg/dl 1.14 mg/dl Est Creatinine Clear Calc Drug Dose 98.8 ml/min 63.9 ml/min 66.7 ml/min Estimated GFR () 110.4 73.9 77.8 Estimated GFR (Non- 95.2 63.7 67.1 BUN/Creatinine Ratio 12.0 8.5 12.3 Random Glucose 96 mg/dl 106 mg/dl 99 mg/dl Calcium Level 8.1 mg/dl 7.8 mg/dl 8.2 mg/dl Phosphorus Level 2.6 mg/dl Magnesium Level 1.8 mg/dl Iron Level mcg/dl 63 mcg/dl Total Iron Binding Capacity 189 mcg/dl Ferritin 1247.8 ng/ml Chemistry Specimen Hemolysis Hepatitis B Surface Antigen NEG Hepatitis C Antibody NEG Urine Osmolality 532 mOms/kg Test 06/20/18 23:46 Sodium Level 117 mmol/L Potassium Level 3.6 mmol/L Chloride Level 84 mmol/L Carbon Dioxide Level 26 mmol/L Anion Gap 6.0 mmol/L Blood Urea Nitrogen 15 mg/dl Creatinine 1.04 mg/dl Est Creatinine Clear Calc Drug Dose 73.1 ml/min Estimated GFR () 86.9 Estimated GFR (Non- 75.0 BUN/Creatinine Ratio 14.8 Random Glucose 92 mg/dl Calcium Level 8.1 mg/dl
[2018-06-21] MEDS ORDERED: ALTEPLASE, RECOMBINANT 1 MG/ML 2 ML VIAL IV STA ×2 (00:59→12:54)
[2018-06-21] MEDS: THIAMINE HCL INJ 100 MG in SYRINGE 9 ML IV SCH ×2 (04:18→23:47)
[2018-06-21 05:00] LABS: CALCIUM 7.9 mg/dl (8.5-10.1); CREATININE 1.03 mg/dl (0.60-1.40); PHOSPHORUS 2.3 mg/dl (2.5-4.9); POTASSIUM 3.5 mmol/L (3.5-5.1)
[2018-06-21] MEDS ORDERED: NURSING VERBAL MED ORDER ONE ×2 (06:00)
[2018-06-21] MEDS: SODIUM CHLORIDE 0.9% 1000ML 1,000 ML IV SCH ×2 (06:03→14:07)
[2018-06-21 07:01] LABS: HEMOGLOBIN A1C 5.8 % (4.5-5.6)
[2018-06-21] MEDS ORDERED: CHLORDIAZEPOXIDE 25 MG CAP PO SCH (07:15)
[2018-06-21] MEDS: ENOXAPARIN 40 MG/0.4 ML SYR SQ SCH (07:28)
[2018-06-21] MEDS: LOSARTAN POTASSIUM 50 MG TAB PO SCH (07:29)
[2018-06-21] MEDS: ASPIRIN 81 MG ECTAB PO SCH (07:29)
[2018-06-21] MEDS: CEPHALEXIN MONOHYDRATE 500 MG CAP PO SCH ×4 (07:29→21:25)
[2018-06-21] MEDS: FAMOTIDINE 20 MG TAB PO SCH ×2 (07:29→21:27)
[2018-06-21] MEDS: LABETALOL HCL 200 MG TAB PO SCH ×2 (07:29→21:26)
[2018-06-21] MEDS: NICOTINE 21 MG/24 HR TDSY TD SCH (07:30)
[2018-06-21] MEDS: PRAVASTATIN SOD 10 MG TAB PO SCH (07:30)
[2018-06-21] MEDS: CHLORDIAZEPOXIDE 25MG 1ST DOSE PO SCH ×3 (07:32→20:17)
--- NOTE | 2018-06-21 07:36 | Progress Note ---
Subjective Date of Service: Jun 21, 2018. Subjective this pt has a pleasant but loose understanding of what is the reason for his continued hospital stay, he has no focal issues except for the chronic ankle deformity Problem List Medical Problems: (1) Alcoholism Status: Acute (2) Altered mental status, unspecified Status: Acute (3) Weakness Status: Acute Review of Systems Constitutional: + weakness, + fatigue, No fever, No chills Cardiac: No chest pain, No orthopnea Abdomen: No pain, No nausea, No vomiting Male : No dysuria, No urinary frequency Psychiatric: No depression symptoms, No anhedonism, No anxiety Skin: No rash, No itch Objective Vital Signs Date Time Temp Pulse Resp B/P (MAP) Pulse Ox O2 Delivery O2 Flow Rate FiO2 06/21/18 06:02 62 19 137/88 (104) 100 Room Air 06/21/18 05:01 61 18 111/77 (88) 96 Room Air 06/21/18 04:02 37.0 61 15 114/72 (86) 100 Room Air 06/21/18 03:01 61 16 86/59 (68) 94 Room Air 06/21/18 02:01 66 21 108/71 (83) 99 Room Air 06/21/18 01:02 68 21 109/68 (82) 100 Room Air 06/21/18 00:01 36.5 62 19 130/80 (97) 98 Room Air 06/20/18 23:01 65 23 119/77 (91) 91 Room Air 06/20/18 22:01 64 21 125/82 (96) 98 Room Air 06/20/18 21:01 63 20 122/80 (94) 98 Room Air 06/20/18 20:01 37.1 62 20 111/74 (86) 96 Room Air 06/20/18 20:00 98 Room Air 06/20/18 19:02 69 23 126/77 (93) 96 Room Air 06/20/18 18:00 69 20 112/75 (87) 99 Room Air 06/20/18 16:00 36.9 68 20 122/86 (98) 99 Room Air 06/20/18 14:57 65 20 129/82 (98) Room Air 06/20/18 12:00 37.0 59 18 137/85 (102) 93 Room Air 06/20/18 09:16 58 16 106/75 (85) 95 Room Air 06/20/18 08:00 36.4 69 16 154/85 (108) 99 Room Air 06/20/18 08:00 99 Room Air Physical Exam General Appearance: WD/WN, + mild distress Eyes: normal inspection, sclerae normal Neck: supple, no JVD Respiratory/Chest: chest non-tender, lungs clear, normal breath sounds Cardiovascular: regular rate, rhythm, + systolic murmur Abdomen: normal bowel sounds, non tender, soft Extremities: no pedal edema, + pertinent finding (deformity of left ankle with callous formation and some wear on callous) Neurologic/Psychiatric: alert, oriented x 3 Laboratory Results Last 24 Hours Test 06/20/18 07:46 06/20/18 08:05 06/20/18 11:16 06/20/18 11:56 Sodium Level 119 mmol/L 118 mmol/L Potassium Level 3.4 mmol/L 3.6 mmol/L Chloride Level 84 mmol/L 84 mmol/L Carbon Dioxide Level 27 mmol/L 27 mmol/L Anion Gap 8.0 mmol/L 8.0 mmol/L Blood Urea Nitrogen 8 mg/dl 9 mg/dl Creatinine 0.74 mg/dl 0.77 mg/dl Est Creatinine Clear Calc Drug Dose 102.8 ml/min 98.8 ml/min Estimated GFR () 112.2 110.4 Estimated GFR (Non- 96.8 95.2 BUN/Creatinine Ratio 11.2 12.0 Random Glucose 99 mg/dl 96 mg/dl Calcium Level 8.5 mg/dl 8.1 mg/dl Urine Osmolality 398 mOms/kg Bedside Glucose 112 mg/dl Estimated Average Glucose 120 mg/dl Hemoglobin A1c 5.8 % Phosphorus Level 2.6 mg/dl Magnesium Level 1.8 mg/dl Iron Level mcg/dl Total Iron Binding Capacity 189 mcg/dl Ferritin 1247.8 ng/ml Chemistry Specimen Hemolysis Hepatitis B Surface Antigen NEG Hepatitis C Antibody NEG Test 06/20/18 14:10 06/20/18 16:13 06/20/18 20:28 06/20/18 21:20 Urine Osmolality 532 mOms/kg 540 mOms/kg Sodium Level 116 mmol/L 116 mmol/L Potassium Level 3.7 mmol/L 3.8 mmol/L Chloride Level 84 mmol/L 83 mmol/L Carbon Dioxide Level 27 mmol/L 26 mmol/L Anion Gap 5.0 mmol/L 8.0 mmol/L Blood Urea Nitrogen 10 mg/dl 14 mg/dl Creatinine 1.19 mg/dl 1.14 mg/dl Est Creatinine Clear Calc Drug Dose 63.9 ml/min 66.7 ml/min Estimated GFR () 73.9 77.8 Estimated GFR (Non- 63.7 67.1 BUN/Creatinine Ratio 8.5 12.3 Random Glucose 106 mg/dl 99 mg/dl Calcium Level 7.8 mg/dl 8.2 mg/dl Iron Level 63 mcg/dl Test 06/20/18 23:46 06/21/18 04:05 06/21/18 05:30 Sodium Level 117 mmol/L 117 mmol/L Potassium Level 3.6 mmol/L 3.5 mmol/L Chloride Level 84 mmol/L 85 mmol/L Carbon Dioxide Level 26 mmol/L 27 mmol/L Anion Gap 6.0 mmol/L 5.0 mmol/L Blood Urea Nitrogen 15 mg/dl 15 mg/dl Creatinine 1.04 mg/dl 1.03 mg/dl Est Creatinine Clear Calc Drug Dose 73.1 ml/min 73.8 ml/min Estimated GFR () 86.9 87.9 Estimated GFR (Non- 75.0 75.9 BUN/Creatinine Ratio 14.8 14.3 Random Glucose 92 mg/dl 108 mg/dl Calcium Level 8.1 mg/dl 7.9 mg/dl Phosphorus Level 2.3 mg/dl Magnesium Level 1.7 mg/dl Urine Osmolality 463 mOms/kg Assessment and Plan 63yo male admitted on June 19, 2018 because of severe acute hyponatremia On=596 , foot cellulitis and alcohol abuse Hyponatremia, acute euvolemic hyponatremia. slowly improving, Ddx to include medication effects as patient on HCTZ, less likely secondary to Lasix. Poor solute intake with beer potomania. Gerd on pepcid EtOH abuse and alcohol intoxication upon admission last drink was in the a.m. on the day of admission, continue to monitor for alcohol withdrawal, Thiamine, MVI and Folic acid, CIWA protocol with IV Ativan PRN Left foot deformity with cellulitis, Keflex 500mg po q 6 hours HTN, Controlled with Cozaar 100mg po daily, Continue Labetalol 200mg po BID, holding diuretics HLP - Pravastatin Lovenox for DVT prevention Continued [facility] stay due to: multiple IV medications needed Discharge planning: uncertain
[2018-06-21] MEDS: CEROVITE ADV FORMULA TAB PO SCH (08:28)
[2018-06-21] MEDS: MAGNESIUM OXIDE 400 MG TAB PO SCH ×3 (08:28→21:25)
[2018-06-21 08:43] LABS: CALCIUM 8.2 mg/dl (8.5-10.1); CREATININE 0.96 mg/dl (0.60-1.40); POTASSIUM 3.4 mmol/L (3.5-5.1)
--- NOTE | 2018-06-21 08:48 | Clinical Documentation Query ---
TERESO Harris : CLINICAL DOCUMENTATION QUERY Patient is a 63 year old male admitted for evaluation and treatment of severe, symptomatic hyponatremia in the setting of alcohol abuse. On admission, family noted "he is confused, not recognizing his family, not acting appropriately and poor memory". As appropriate, consider this as suggested below as this impacts accurate DRG assignment. In your clinical opinion is this patient being managed for: (xx ) Metabolic encephalopathy, POA, resolved ( ) Not Agree ( ) Other explanation of clinical findings (No explanation is considered a No Response) ( ) Unable to determine ( ) Need to Discuss (Phone CDS or qliq) (No discussion is considered a No Response) The medical record reflects the following clinical findings, treatment, and risk factors. Clinical Indicators: As above Treatment: IV NSS, serial chemistries, ICU admission, nephrology consultation Risk Factors: Beer potomania Please clarify and document your clinical opinion in the progress notes and discharge summary. Terms such as "probable", "suspected", "likely", "questionable", "possible", or "still to be ruled out" are acceptable. IF IN AGREEMENT, YOU MUST DOCUMENT ABOVE DIAGNOSTIC STATEMENT IN DAILY PROGRESS NOTES AND DISCHARGE SUMMARY. This document is not part of the patient's record. Thank You, Neri Mantilla, RN [phone]
--- NOTE | 2018-06-21 11:20 | Nephrology Progress Note ---
Nephrology Progress Note Date of Service Jun 21, 2018. Chief Complaint Hyponatremia Subjective Mr. Meyer was seen & examined in the ICU this morning. He is alert and oriented to self, place and month. He remains on 0.9NS IV at 100 cc/hr. He denies dyspnea or focal neurologic weakness. Review of Systems Constitutional: No fever Cardiovascular: No chest pain Respiratory: No dyspnea at rest Abdomen: No pain, No nausea, No vomiting Extremities: No leg edema A complete review of systems was performed. Pertinent positives are noted above. All other systems are negative. Vital Signs Last 8 Hrs Date Time Temp Pulse Resp B/P (MAP) Pulse Ox O2 Delivery O2 Flow Rate FiO2 06/21/18 09:10 70 16 96/61 (73) 99 Room Air 06/21/18 08:00 36.9 66 22 149/86 (107) 99 Room Air 06/21/18 08:00 99 Room Air 06/21/18 06:02 62 19 137/88 (104) 100 Room Air 06/21/18 05:01 61 18 111/77 (88) 96 Room Air 06/21/18 04:02 37.0 61 15 114/72 (86) 100 Room Air Last Recorded Weight Weight (Kilograms): 84.400 Physical Exam General Appearance: no apparent distress Head: normocephalic, atraumatic Eyes: PERRL, EOMI Neck: no adenopathy Respiratory/Chest: lungs clear, no respiratory distress Cardiovascular: regular rate, rhythm Abdomen/GI: normal bowel sounds, non tender, soft Extremities/Musculoskelatal: no calf tenderness, no pedal edema Neurologic/Psych: alert, oriented x 3 Social History Smoking Status: Current every day smoker Smokeless Tobacco Use: No Alcohol Use: heavy Drug Use: marijuana Marital Status: Housing Status: lives with family Occupation: unemployed Laboratory Results Past 24 Hours 06/20/18 11:56 06/20/18 16:13 06/20/18 20:28 06/20/18 23:46 06/21/18 04:05 06/21/18 08:06 Test 06/20/18 11:16 06/20/18 11:56 06/20/18 14:10 06/20/18 16:13 Bedside Glucose 112 mg/dl (70-99) Anion Gap 8.0 mmol/L (3-11) 5.0 mmol/L (3-11) Est Creatinine Clear Calc Drug Dose 98.8 ml/min 63.9 ml/min Estimated GFR () 110.4 73.9 Estimated GFR (Non- 95.2 63.7 BUN/Creatinine Ratio 12.0 (10-20) 8.5 (10-20) Estimated Average Glucose 120 mg/dl Hemoglobin A1c 5.8 % (4.5-5.6) Calcium Level 8.1 mg/dl (8.5-10.1) 7.8 mg/dl (8.5-10.1) Phosphorus Level 2.6 mg/dl (2.5-4.9) Magnesium Level 1.8 mg/dl (1.8-2.4) Iron Level mcg/dl (35-175) 63 mcg/dl (35-175) Total Iron Binding Capacity 189 mcg/dl (250-450) Ferritin 1247.8 ng/ml (8.0-388.0) Chemistry Specimen Hemolysis Hepatitis B Surface Antigen NEG (NEG) Hepatitis C Antibody NEG (NEG) Urine Osmolality 532 mOms/kg (500-800) Test 06/20/18 20:28 06/20/18 21:20 06/20/18 23:46 06/21/18 04:05 Anion Gap 8.0 mmol/L (3-11) 6.0 mmol/L (3-11) 5.0 mmol/L (3-11) Est Creatinine Clear Calc Drug Dose 66.7 ml/min 73.1 ml/min 73.8 ml/min Estimated GFR () 77.8 86.9 87.9 Estimated GFR (Non- 67.1 75.0 75.9 BUN/Creatinine Ratio 12.3 (10-20) 14.8 (10-20) 14.3 (10-20) Calcium Level 8.2 mg/dl (8.5-10.1) 8.1 mg/dl (8.5-10.1) 7.9 mg/dl (8.5-10.1) Urine Osmolality 540 mOms/kg (500-800) Phosphorus Level 2.3 mg/dl (2.5-4.9) Magnesium Level 1.7 mg/dl (1.8-2.4) Test 06/21/18 05:30 06/21/18 08:06 Urine Osmolality 463 mOms/kg (500-800) Anion Gap 9.0 mmol/L (3-11) Est Creatinine Clear Calc Drug Dose 79.2 ml/min Estimated GFR () 95.8 Estimated GFR (Non- 82.6 BUN/Creatinine Ratio 13.3 (10-20) Calcium Level 8.2 mg/dl (8.5-10.1) Allergies Coded Allergies: No Known Allergies (Unverified , 11/29/13) Medications Current Inpatient Medications Medications (Trade) Dose Ordered Sig/Rachel Route Start Time Stop Time Status Last Admin Dose Admin Enoxaparin Sodium (Lovenox Inj) 40 mg Q24H SQ 06/20/18 08:00 07/20/18 07:59 06/21/18 07:28 40 MG Acetaminophen (Tylenol Tab) 650 mg Q4H PRN PO 06/19/18 21:30 07/19/18 21:29 Ondansetron HCl (Zofran Inj) 4 mg Q6H PRN IV 06/19/18 21:30 07/19/18 21:29 Miscellaneous Information (Icu Protocol For Hyperglycemia) 1 ea PRN PRN N/A 06/19/18 21:30 06/21/18 21:29 Aspirin (Ecotrin Tab) 81 mg DAILY PO 06/20/18 09:00 07/20/18 08:59 06/21/18 07:29 81 MG Labetalol HCl (Normodyne Tab) 200 mg BID PO 06/20/18 09:00 07/20/18 08:59 06/21/18 07:29 200 MG Losartan Potassium (coZAAR TAB) 100 mg DAILY PO 06/20/18 09:00 07/20/18 08:59 06/21/18 07:29 100 MG Pravastatin Sodium (Pravachol Tab) 10 mg DAILY PO 06/20/18 09:00 07/20/18 08:59 06/21/18 07:30 10 MG Thiamine HCl 100 mg/Syringe 10 ml @ 2 mls/min Q24H IV 06/19/18 23:30 07/19/18 23:29 06/21/18 04:18 2 MLS/MIN Cephalexin Monohydrate (Keflex Cap) 500 mg QID PO 06/20/18 09:00 06/30/18 08:59 06/21/18 07:29 500 MG Desmopressin Acetate 2 mcg/ Sodium Chloride 50.5 ml @ 100 mls/hr Q8H IV 06/20/18 01:00 07/20/18 00:59 Future Hold 06/20/18 08:55 100 MLS/HR Famotidine (Pepcid Tab) 20 mg BID PO 06/20/18 21:00 07/20/18 20:59 06/21/18 07:29 20 MG Heparin Sodium (Porcine) (Heparin 10 Unit/ ml 5 ml Flush) 5 ml PRN PRN FLUSH 06/20/18 15:00 07/20/18 14:59 Nicotine (Nicoderm Cq 21MG Patch) 1 patch QAM TD 06/21/18 09:00 07/21/18 08:59 06/21/18 07:30 1 PATCH Miscellaneous (Remove Nicoderm Patch) 1 ea HS N/A 06/20/18 21:00 07/20/18 20:59 06/20/18 21:00 1 EA Lorazepam (Ativan Tab) PRN Dosing -Active Protocol UD PRN PO 06/20/18 19:00 07/20/18 18:59 Heparin Sodium (Porcine) (Heparin 10 Unit/ ml 5 ml Flush) 5 ml PRN PRN FLUSH 06/21/18 03:15 07/21/18 03:14 Sodium Chloride 1,000 ml @ 100 mls/hr Q10H IV 06/21/18 06:00 07/21/18 05:59 06/21/18 06:03 100 MLS/HR Chlordiazepoxide (Librium Cap) 25 mg Q6H PO 06/21/18 08:00 06/22/18 06:01 06/21/18 07:32 25 MG Chlordiazepoxide (Librium Cap) 25 mg Q8H PO 06/22/18 14:00 06/23/18 06:01 Chlordiazepoxide (Librium Cap) 10 mg Q8H PO 06/23/18 14:00 06/24/18 06:01 Chlordiazepoxide (Librium Cap) 5 mg Q12H PO 06/24/18 18:00 06/25/18 06:01 Multivitamins/ Minerals (Multivitamin W/ Minerals Tab) 1 tab QAM PO 06/21/18 09:00 07/21/18 08:59 06/21/18 08:28 1 TAB Folic Acid (Folvite Tab) 1 mg QAM PO 06/21/18 09:00 07/21/18 08:59 06/21/18 08:28 1 MG Magnesium Oxide (Mag-Ox Tab) 400 mg BID PO 06/21/18 09:00 07/21/18 08:59 06/21/18 08:28 400 MG Impression (1) Hyponatremia (2) Hypokalemia (3) Alcohol dependence Mr. Wes Meyer is a 63-year-old male with hypertension, history of thalamic CVA, tobacco abuse and chronic alcohol use. He presented to the ED with more than 24 hours of decreased alertness, poor oral intake and generalized weakness. Laboratory evaluation is notable for hypokalemia and severe hyponatremia. Chronic, moderately symptomatic, severe hyponatremia. Rate of correction was excessive on admission. Patient autocorrected, Uosm 60, requiring desmopressin therapy and IV D5W. Serum sodium now stable at 118 mmol/L. Patient appears euvolemic. Clinical presentation is consistent with potomania. Recommendations -- Serum sodium has been stable over the last 24 hours. Will stop desmopressin -- Check urine osmolality at least twice daily -- Monitor serum sodium + potassium q 4 hours -- Will supplement Mg and K today -- Encourage nutrition
--- NOTE | 2018-06-21 11:54 | DIAGNOSTIC IMAGING REPORT ---
L FOOT MIN 3 VIEWS ROUTINE CLINICAL HISTORY: Left foot swelling. Evaluate for osteomyelitis. COMPARISON: Left foot radiographs June 19, 2018 and left ankle radiographs May 04, 2012. FINDINGS: There is no acute fracture or evidence for osteomyelitis within the left foot. Severe degenerative changes of the tibiotalar joint is noted as well as severe degenerative changes of the subtalar joint with moderate flat foot deformity. There is moderate mid foot arthritis. Tarsometatarsal joints are intact. There is moderate arthritis of the left first metatarsophalangeal joint. Lucencies within the talus are chronic. IMPRESSION: 1. No acute fracture or evidence for osteomyelitis within the left foot. 2. 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 Electronically signed by: Alan Gillespie M.D. 06/21/2018 11:52 AM Dictated Date/Time: 06/21/2018 11:46 AM
[2018-06-21 12:20] LABS: CALCIUM 7.9 mg/dl (8.5-10.1); CREATININE 0.89 mg/dl (0.60-1.40); POTASSIUM 3.5 mmol/L (3.5-5.1)
[2018-06-21 16:37] LABS: CALCIUM 8.3 mg/dl (8.5-10.1); CREATININE 0.96 mg/dl (0.60-1.40); POTASSIUM 3.6 mmol/L (3.5-5.1)
[2018-06-21] MEDS ORDERED: DESMOPRESSIN ACETATE INJ 1 MCG in SODIUM CHLORIDE 0.9% 50ML 50 ML IV ONE (17:15)
[2018-06-21 20:25] LABS: CALCIUM 8.1 mg/dl (8.5-10.1); CREATININE 1.11 mg/dl (0.60-1.40); POTASSIUM 3.6 mmol/L (3.5-5.1)
[2018-06-21] MEDS: POTASSIUM CHLORIDE 20 MEQ TABCR PO SCH (21:26)
[2018-06-22] VITALS (23 sets, daily range): BP systolic 119–183; BP diastolic 65–115; PULSE 64–89; TEMP 36.8–37.1; O2SAT 91–99
[2018-06-22 00:24] LABS: CALCIUM 7.8 mg/dl (8.5-10.1); CREATININE 0.95 mg/dl (0.60-1.40); POTASSIUM 3.6 mmol/L (3.5-5.1)
[2018-06-22] MEDS: SODIUM CHLORIDE 0.9% 1000ML 1,000 ML IV SCH ×2 (01:03→12:22)
[2018-06-22 04:42] LABS: HEMATOCRIT 27.6 % (42-52); HEMOGLOBIN 10.1 g/dL (14.0-18.0); MEAN CELL VOLUME 92.6 fL (80-100); MEAN CORPUSCULAR HEMOGLOBIN 33.9 pg (25-34); MEAN CORPUSCULAR HGB CONC 36.6 g/dl (32-36); RED CELL DISTRIBUTION WIDTH CV 14.7 % (11.5-14.5); RED CELL DISTRIBUTION WIDTH SD 49.7 fL (36.4-46.3); WHITE BLOOD COUNT 4.87 K/uL (4.8-10.8)
[2018-06-22 05:10] LABS: CALCIUM 7.5 mg/dl (8.5-10.1); CREATININE 0.88 mg/dl (0.60-1.40); PHOSPHORUS 1.9 mg/dl (2.5-4.9); POTASSIUM 3.6 mmol/L (3.5-5.1)
[2018-06-22 05:38] LABS: MEAN PLATELET VOLUME 9.1 fL (7.4-10.4); PLATELET COUNT 98 K/uL (130-400)
[2018-06-22] MEDS ORDERED: CHLORDIAZEPOXIDE 25MG 1ST DOSE PO SCH (06:00)
[2018-06-22] MEDS ORDERED: SODIUM CHLORIDE 3% 500 ML BAG IV ONE (07:00)
[2018-06-22] MEDS ORDERED: SODIUM CHLORIDE 3% INJ 100 ML in EMPTY BAG 0 ML IV STA ×2 (07:18→07:24)
[2018-06-22] MEDS: ENOXAPARIN 40 MG/0.4 ML SYR SQ SCH (08:26)
[2018-06-22] MEDS: LOSARTAN POTASSIUM 50 MG TAB PO SCH (08:26)
[2018-06-22] MEDS: LABETALOL HCL 200 MG TAB PO SCH ×2 (08:26→21:01)
[2018-06-22] MEDS: CEROVITE ADV FORMULA TAB PO SCH (08:27)
[2018-06-22] MEDS: MAGNESIUM OXIDE 400 MG TAB PO SCH (08:30)
[2018-06-22] MEDS: ASPIRIN 81 MG ECTAB PO SCH (08:30)
[2018-06-22] MEDS: POTASSIUM CHLORIDE 20 MEQ TABCR PO SCH (08:30)
[2018-06-22] MEDS: FAMOTIDINE 20 MG TAB PO SCH ×2 (08:35→21:02)
[2018-06-22] MEDS: PRAVASTATIN SOD 10 MG TAB PO SCH (08:35)
[2018-06-22] MEDS: CEPHALEXIN MONOHYDRATE 500 MG CAP PO SCH ×4 (08:35→21:00)
[2018-06-22] MEDS: NICOTINE 21 MG/24 HR TDSY TD SCH (08:35)
[2018-06-22] MEDS ORDERED: MAGNESIUM OXIDE 400 MG TAB PO ONE (08:45)
[2018-06-22] MEDS: THIAMINE HCL 100 MG TAB PO SCH (09:25)
[2018-06-22] MEDS: POT PHOSPHATE MONOBASIC W/ SOD TAB PO SCH ×2 (09:26→21:03)
[2018-06-22 10:32] LABS: CALCIUM 8.1 mg/dl (8.5-10.1); CREATININE 0.91 mg/dl (0.60-1.40); POTASSIUM 3.6 mmol/L (3.5-5.1)
[2018-06-22] MEDS ORDERED: DESMOPRESSIN ACETATE INJ 1 MCG in SODIUM CHLORIDE 0.9% 50ML 50 ML IV SCH (11:00)
--- NOTE | 2018-06-22 11:08 | Nephrology Progress Note ---
Nephrology Progress Note Date of Service Jun 22, 2018. Chief Complaint Hyponatremia Subjective Mr. Meyer was seen & examined in the ICU this morning. He was alert and oriented to self and place. He denies RAE or focal weakness. Review of Systems Constitutional: No fever Cardiovascular: No chest pain Respiratory: No dyspnea at rest Abdomen: No pain, No nausea, No vomiting Extremities: No leg edema A complete review of systems was performed. Pertinent positives are noted above. All other systems are negative. Vital Signs Last 8 Hrs Date Time Temp Pulse Resp B/P (MAP) Pulse Ox O2 Delivery O2 Flow Rate FiO2 06/22/18 08:25 98 Room Air 06/22/18 08:02 36.8 80 20 122/96 (105) 97 Room Air 06/22/18 08:00 77 26 96 06/22/18 08:00 Room Air 06/22/18 07:01 66 19 163/92 (115) 91 06/22/18 07:00 64 19 93 06/22/18 06:12 65 23 157/96 (116) 97 Room Air 06/22/18 06:01 69 166/115 (132) 97 Room Air 06/22/18 05:01 66 22 142/88 (106) 98 Room Air 06/22/18 04:01 37.0 65 22 119/74 (89) 97 Room Air 06/22/18 03:02 71 24 138/65 (89) 98 Room Air Last Recorded Weight Weight (Kilograms): 91.000 Physical Exam General Appearance: no apparent distress Head: normocephalic, atraumatic Eyes: PERRL, EOMI Neck: no adenopathy Respiratory/Chest: lungs clear, no respiratory distress Cardiovascular: regular rate, rhythm Abdomen/GI: normal bowel sounds, non tender, soft Genitourinary - Male: + pertinent finding (garcia catheter in place draining clear yellow urine) Extremities/Musculoskelatal: no calf tenderness, no pedal edema Neurologic/Psych: alert Social History Smoking Status: Current every day smoker Smokeless Tobacco Use: No Alcohol Use: heavy Drug Use: marijuana Marital Status: Housing Status: lives with family Occupation: unemployed Laboratory Results Past 24 Hours 06/22/18 04:11 06/21/18 11:45 06/21/18 15:55 06/21/18 19:55 06/21/18 23:58 06/22/18 04:11 06/22/18 09:54 Test 06/21/18 11:45 06/21/18 12:40 06/21/18 15:55 06/21/18 19:55 Anion Gap 8.0 mmol/L (3-11) 7.0 mmol/L (3-11) 7.0 mmol/L (3-11) Est Creatinine Clear Calc Drug Dose 85.4 ml/min 79.2 ml/min 68.5 ml/min Estimated GFR () 104.0 95.8 80.3 Estimated GFR (Non- 89.7 82.6 69.3 BUN/Creatinine Ratio 13.8 (10-20) 12.7 (10-20) 11.3 (10-20) Calcium Level 7.9 mg/dl (8.5-10.1) 8.3 mg/dl (8.5-10.1) 8.1 mg/dl (8.5-10.1) Urine Osmolality 165 mOms/kg (500-800) Test 06/21/18 23:58 06/22/18 04:11 06/22/18 04:50 06/22/18 09:54 Anion Gap 6.0 mmol/L (3-11) 8.0 mmol/L (3-11) 8.0 mmol/L (3-11) Est Creatinine Clear Calc Drug Dose 80.0 ml/min 86.4 ml/min 91.8 ml/min Estimated GFR () 97.0 104.5 102.1 Estimated GFR (Non- 83.7 90.1 88.1 BUN/Creatinine Ratio 11.3 (10-20) 10.1 (10-20) 9.3 (10-20) Calcium Level 7.8 mg/dl (8.5-10.1) 7.5 mg/dl (8.5-10.1) 8.1 mg/dl (8.5-10.1) Red Blood Count 2.98 M/uL (4.7-6.1) Mean Corpuscular Volume 92.6 fL (80-100) Mean Corpuscular Hemoglobin 33.9 pg (25-34) Mean Corpuscular Hemoglobin Concent 36.6 g/dl (32-36) RDW Standard Deviation 49.7 fL (36.4-46.3) RDW Coefficient of Variation 14.7 % (11.5-14.5) Mean Platelet Volume 9.1 fL (7.4-10.4) Platelet Estimate DECREASED Phosphorus Level 1.9 mg/dl (2.5-4.9) Magnesium Level 1.6 mg/dl (1.8-2.4) Urine Osmolality 280 mOms/kg (500-800) Allergies Coded Allergies: No Known Allergies (Unverified , 11/29/13) Medications Current Inpatient Medications Medications (Trade) Dose Ordered Sig/Rachel Route Start Time Stop Time Status Last Admin Dose Admin Enoxaparin Sodium (Lovenox Inj) 40 mg Q24H SQ 06/20/18 08:00 07/20/18 07:59 06/22/18 08:26 40 MG Acetaminophen (Tylenol Tab) 650 mg Q4H PRN PO 06/19/18 21:30 07/19/18 21:29 Ondansetron HCl (Zofran Inj) 4 mg Q6H PRN IV 06/19/18 21:30 07/19/18 21:29 Aspirin (Ecotrin Tab) 81 mg DAILY PO 06/20/18 09:00 07/20/18 08:59 06/22/18 08:30 81 MG Labetalol HCl (Normodyne Tab) 200 mg BID PO 06/20/18 09:00 07/20/18 08:59 06/22/18 08:26 200 MG Losartan Potassium (coZAAR TAB) 100 mg DAILY PO 06/20/18 09:00 07/20/18 08:59 06/22/18 08:26 100 MG Pravastatin Sodium (Pravachol Tab) 10 mg DAILY PO 06/20/18 09:00 07/20/18 08:59 06/22/18 08:35 10 MG Cephalexin Monohydrate (Keflex Cap) 500 mg QID PO 06/20/18 09:00 06/30/18 08:59 06/22/18 08:35 500 MG Famotidine (Pepcid Tab) 20 mg BID PO 06/20/18 21:00 07/20/18 20:59 06/22/18 08:35 20 MG Heparin Sodium (Porcine) (Heparin 10 Unit/ ml 5 ml Flush) 5 ml PRN PRN FLUSH 06/20/18 15:00 07/20/18 14:59 Nicotine (Nicoderm Cq 21MG Patch) 1 patch QAM TD 06/21/18 09:00 07/21/18 08:59 06/22/18 08:35 1 PATCH Miscellaneous (Remove Nicoderm Patch) 1 ea HS N/A 06/20/18 21:00 07/20/18 20:59 06/21/18 21:27 1 EA Lorazepam (Ativan Tab) PRN Dosing -Active Protocol UD PRN PO 06/20/18 19:00 07/20/18 18:59 Heparin Sodium (Porcine) (Heparin 10 Unit/ ml 5 ml Flush) 5 ml PRN PRN FLUSH 06/21/18 03:15 07/21/18 03:14 Sodium Chloride 1,000 ml @ 100 mls/hr Q10H IV 06/21/18 06:00 07/21/18 05:59 06/22/18 01:03 100 MLS/HR Chlordiazepoxide (Librium Cap) 25 mg Q8H PO 06/22/18 14:00 06/23/18 06:01 Chlordiazepoxide (Librium Cap) 10 mg Q8H PO 06/23/18 14:00 06/24/18 06:01 Chlordiazepoxide (Librium Cap) 5 mg Q12H PO 06/24/18 18:00 06/25/18 06:01 Multivitamins/ Minerals (Multivitamin W/ Minerals Tab) 1 tab QAM PO 06/21/18 09:00 07/21/18 08:59 06/22/18 08:27 1 TAB Folic Acid (Folvite Tab) 1 mg QAM PO 06/21/18 09:00 07/21/18 08:59 06/22/18 08:35 1 MG Magnesium Oxide (Mag-Ox Tab) 400 mg BID PO 06/21/18 21:00 07/21/18 20:59 Future hold 06/22/18 08:30 400 MG Magnesium Oxide (Mag-Ox Tab) 800 mg BID PO 06/22/18 21:00 06/22/18 21:01 Potassium/ Phosphorus/Sodium (Phospha 250 Neutral 155-852-130 Mg) 2 tab BID PO 06/22/18 09:00 07/22/18 08:59 06/22/18 09:26 2 TAB Desmopressin Acetate 1 mcg/ Sodium Chloride 50.25 ml @ 100 mls/hr TODAY@1100 IV 06/22/18 11:00 06/22/18 11:31 Thiamine HCl (Vitamin B-1 Tab) 100 mg QAM PO 06/22/18 09:00 07/22/18 08:59 06/22/18 09:25 100 MG Impression (1) Hyponatremia (2) Hypokalemia (3) Alcohol dependence Mr. Wes Meyer is a 63-year-old male with hypertension, history of thalamic CVA, tobacco abuse and chronic alcohol use. He presented to the ED with more than 24 hours of decreased alertness, poor oral intake and generalized weakness. Laboratory evaluation is notable for hypokalemia and severe hyponatremia. Chronic, moderately symptomatic, severe hyponatremia. Rate of correction was excessive on admission. Patient autocorrected, Uosm 60, requiring desmopressin therapy and IV D5W. Serum sodium now stable at 118 mmol/L. Patient appears euvolemic. Clinical presentation is consistent with potomania. Recommendations -- Serum sodium has risen 8 mEq over the last 24 hours. Will provide 1 mcg Desmopressin to promote free water retention and avoid over correction -- Check urine osmolality in am -- Monitor serum sodium + potassium q 6 hours -- Will check serum Mg in am -- Encourage nutrition
[2018-06-22] MEDS ORDERED: DESMOPRESSIN ACETATE INJ 1 MCG in SODIUM CHLORIDE 0.9% 50ML 50 ML IV ONE (11:30)
--- NOTE | 2018-06-22 12:23 | Progress Note ---
Subjective Date of Service: Jun 22, 2018. Subjective this pt remains pleasantly confused, he has no focal complaints and does not appear to be in acute alcohol withdrawal Problem List Medical Problems: (1) Alcoholism Status: Acute (2) Altered mental status, unspecified Status: Acute (3) Weakness Status: Acute Review of Systems Constitutional: + weakness, + fatigue, No fever, No chills Respiratory: No cough, No sputum, No wheezing Cardiac: No chest pain, No edema Abdomen: No pain, No nausea, No vomiting, No diarrhea Musculoskeletal: No joint pain, No muscle pain Psychiatric: + depression symptoms, No anhedonism, No anxiety Objective Vital Signs Date Time Temp Pulse Resp B/P (MAP) Pulse Ox O2 Delivery O2 Flow Rate FiO2 06/22/18 08:25 98 Room Air 06/22/18 08:02 36.8 80 20 122/96 (105) 97 Room Air 06/22/18 08:00 77 26 96 06/22/18 08:00 Room Air 06/22/18 07:01 66 19 163/92 (115) 91 06/22/18 07:00 64 19 93 06/22/18 06:12 65 23 157/96 (116) 97 Room Air 06/22/18 06:01 69 166/115 (132) 97 Room Air 06/22/18 05:01 66 22 142/88 (106) 98 Room Air 06/22/18 04:01 37.0 65 22 119/74 (89) 97 Room Air 06/22/18 03:02 71 24 138/65 (89) 98 Room Air 06/22/18 02:01 72 22 140/87 (104) 98 Room Air 06/22/18 01:01 69 23 122/81 (95) 98 Room Air 06/22/18 00:01 36.8 78 23 130/79 (96) 97 Room Air 06/21/18 23:01 74 22 115/74 (88) 94 Room Air 06/21/18 22:01 72 21 132/74 (93) 98 Room Air 06/21/18 21:02 77 15 123/67 (85) 97 Room Air 06/21/18 20:01 37.0 74 21 144/90 (108) 99 Room Air 06/21/18 20:00 97 Room Air 06/21/18 19:02 76 17 147/97 (114) 99 Room Air 06/21/18 18:00 77 16 133/80 (97) 98 Room Air 06/21/18 16:00 36.7 64 18 146/88 (107) 99 Room Air 06/21/18 14:00 71 16 116/82 (93) 100 Room Air Physical Exam General Appearance: WD/WN, + mild distress Eyes: normal inspection, sclerae normal Neck: supple, no JVD Respiratory/Chest: chest non-tender, lungs clear, normal breath sounds Cardiovascular: regular rate, rhythm, no murmur Abdomen: normal bowel sounds, non tender, soft Extremities: no pedal edema, no calf tenderness Neurologic/Psychiatric: alert, + depressed affect, + disoriented Laboratory Results Last 24 Hours Test 06/21/18 12:40 06/21/18 15:55 06/21/18 19:55 06/21/18 23:58 Urine Osmolality 165 mOms/kg Sodium Level 122 mmol/L 122 mmol/L 122 mmol/L Potassium Level 3.6 mmol/L 3.6 mmol/L 3.6 mmol/L Chloride Level 89 mmol/L 89 mmol/L 91 mmol/L Carbon Dioxide Level 26 mmol/L 26 mmol/L 25 mmol/L Anion Gap 7.0 mmol/L 7.0 mmol/L 6.0 mmol/L Blood Urea Nitrogen 12 mg/dl 13 mg/dl 11 mg/dl Creatinine 0.96 mg/dl 1.11 mg/dl 0.95 mg/dl Est Creatinine Clear Calc Drug Dose 79.2 ml/min 68.5 ml/min 80.0 ml/min Estimated GFR () 95.8 80.3 97.0 Estimated GFR (Non- 82.6 69.3 83.7 BUN/Creatinine Ratio 12.7 11.3 11.3 Random Glucose 97 mg/dl 119 mg/dl 134 mg/dl Calcium Level 8.3 mg/dl 8.1 mg/dl 7.8 mg/dl Test 06/22/18 04:11 06/22/18 04:50 06/22/18 09:54 White Blood Count 4.87 K/uL Red Blood Count 2.98 M/uL Hemoglobin 10.1 g/dL Hematocrit 27.6 % Mean Corpuscular Volume 92.6 fL Mean Corpuscular Hemoglobin 33.9 pg Mean Corpuscular Hemoglobin Concent 36.6 g/dl RDW Standard Deviation 49.7 fL RDW Coefficient of Variation 14.7 % Platelet Count 98 K/uL Mean Platelet Volume 9.1 fL Platelet Estimate DECREASED Sodium Level 122 mmol/L 127 mmol/L Potassium Level 3.6 mmol/L 3.6 mmol/L Chloride Level 91 mmol/L 96 mmol/L Carbon Dioxide Level 23 mmol/L 23 mmol/L Anion Gap 8.0 mmol/L 8.0 mmol/L Blood Urea Nitrogen 9 mg/dl 8 mg/dl Creatinine 0.88 mg/dl 0.91 mg/dl Est Creatinine Clear Calc Drug Dose 86.4 ml/min 91.8 ml/min Estimated GFR () 104.5 102.1 Estimated GFR (Non- 90.1 88.1 BUN/Creatinine Ratio 10.1 9.3 Random Glucose 105 mg/dl 127 mg/dl Calcium Level 7.5 mg/dl 8.1 mg/dl Phosphorus Level 1.9 mg/dl Magnesium Level 1.6 mg/dl Urine Osmolality 280 mOms/kg Assessment and Plan 63yo male admitted on June 19, 2018 because of severe acute hyponatremia [id number] , foot cellulitis and alcohol abuse, metabolic encephalopathy poa resolved Hyponatremia, acute euvolemic hyponatremia. continues to improve, nephrology is managing influenced by excessive beer intake' Gerd on pepcid remains without symptoms EtOH abuse and alcohol intoxication upon admission last drink was in the a.m. on the day of admission, non signs of alcohol withdrawal, Thiamine, MVI and Folic acid, CIWA protocol Left foot deformity with cellulitis, Keflex 500mg po q 6 hours HTN, Controlled with Cozaar 100mg po daily, Continue Labetalol 200mg po BID, holding diuretics HLP - Pravastatin Lovenox for DVT prevention Continued [facility] stay due to: multiple IV medications needed Discharge planning: uncertain
[2018-06-22] MEDS: CHLORDIAZEPOXIDE 25MG Q8H DOSE PO SCH ×2 (13:39→20:59)
[2018-06-22] MEDS: LORAZEPAM 1 MG TAB PO PRN (14:31)
--- NOTE | 2018-06-22 14:49 | Critical Care Progress Note ---
Critical Care Progress Note Date of Service Jun 22, 2018. ICU Day ICU Day Number: [address] Merrill Subjective No overnight events, tolerating diet Objective General: Alert. nontoxic. Skin: Warm, dry, Head: Atraumatic Ears, nose, mouth and throat: airway patent Cardiovascular: Normal peripheral perfusion Respiratory: no respiratory distress Gastrointestinal: Non distended Musculoskeletal: No deformity Assessment & Plan 63 yo male with a h/o HTN, HLD, Etoh/tobacco abuse admitted to the ICU following presentation to the ED with severe hyponatremia. Neuro - Metabolic encephalopathy 2/2 hyponatremia vs dementia vs delirium in the setting of alcohol withdraw - Follow CIWA, -Empiric Librium -PRN Ativan per protocol Cardiology - History of HTN, HLD - Continue Cozaar 100 mg, Labetalol 200 mg BID - Currently holding HCTZ in the setting of hyponatremia - Troponin negative Pulmonology - Sating well on RA - Significant smoking history - No signs or sx of PNA, CXR unremarkable GI - Tolerating a AHA diet - Abdominal USG --hepato steatosis present - Drug tox negative Renal/Lytes - Hypovolemic, hypertonic, hyponatremia--likely secondary to beer proteinemia. - Followed by Nephrology appreciate recommendations, replacement strategy; 6-7 meq per 24 hours - Q 6 Na checks, DDAVP 1 this morning ENDO - Vit B12, folate WNL - TSH WNL - HbA1c 5.8 Heme -Pancytopenia likely secondary to underlying disease process: Anemia of chronic disease secondary to alcoholism. Folic acid and B12 levels within acceptable limits. ID - Deformity of left foot, mild cellulitis - Keflex 500 mg q 6 DVT ppx - Lovenox Code - Full Patient was discussed on multidisciplinary rounds Improved hyponatremia now 122-127, stable for downgrade to telemetry status. Consults & Procedures Consultants: Dr. Pickard, Nephrology Data Medications: Current Inpatient Medications Medications (Trade) Dose Ordered Sig/Rachel Route Start Time Stop Time Status Last Admin Dose Admin Enoxaparin Sodium (Lovenox Inj) 40 mg Q24H SQ 06/20/18 08:00 07/20/18 07:59 06/22/18 08:26 40 MG Acetaminophen (Tylenol Tab) 650 mg Q4H PRN PO 06/19/18 21:30 07/19/18 21:29 Ondansetron HCl (Zofran Inj) 4 mg Q6H PRN IV 06/19/18 21:30 07/19/18 21:29 Aspirin (Ecotrin Tab) 81 mg DAILY PO 06/20/18 09:00 07/20/18 08:59 06/22/18 08:30 81 MG Labetalol HCl (Normodyne Tab) 200 mg BID PO 06/20/18 09:00 07/20/18 08:59 06/22/18 08:26 200 MG Losartan Potassium (coZAAR TAB) 100 mg DAILY PO 06/20/18 09:00 07/20/18 08:59 06/22/18 08:26 100 MG Pravastatin Sodium (Pravachol Tab) 10 mg DAILY PO 06/20/18 09:00 07/20/18 08:59 06/22/18 08:35 10 MG Cephalexin Monohydrate (Keflex Cap) 500 mg QID PO 06/20/18 09:00 06/30/18 08:59 06/22/18 12:23 500 MG Famotidine (Pepcid Tab) 20 mg BID PO 06/20/18 21:00 07/20/18 20:59 06/22/18 08:35 20 MG Heparin Sodium (Porcine) (Heparin 10 Unit/ ml 5 ml Flush) 5 ml PRN PRN FLUSH 06/20/18 15:00 07/20/18 14:59 Nicotine (Nicoderm Cq 21MG Patch) 1 patch QAM TD 06/21/18 09:00 07/21/18 08:59 06/22/18 08:35 1 PATCH Miscellaneous (Remove Nicoderm Patch) 1 ea HS N/A 06/20/18 21:00 07/20/18 20:59 06/21/18 21:27 1 EA Lorazepam (Ativan Tab) PRN Dosing -Active Protocol UD PRN PO 06/20/18 19:00 07/20/18 18:59 06/22/18 14:31 2 MG Heparin Sodium (Porcine) (Heparin 10 Unit/ ml 5 ml Flush) 5 ml PRN PRN FLUSH 06/21/18 03:15 07/21/18 03:14 Sodium Chloride 1,000 ml @ 100 mls/hr Q10H IV 06/21/18 06:00 07/21/18 05:59 06/22/18 12:22 100 MLS/HR Chlordiazepoxide (Librium Cap) 25 mg Q8H PO 06/22/18 14:00 06/23/18 06:01 06/22/18 13:39 25 MG Chlordiazepoxide (Librium Cap) 10 mg Q8H PO 06/23/18 14:00 06/24/18 06:01 Chlordiazepoxide (Librium Cap) 5 mg Q12H PO 06/24/18 18:00 06/25/18 06:01 Multivitamins/ Minerals (Multivitamin W/ Minerals Tab) 1 tab QAM PO 06/21/18 09:00 07/21/18 08:59 06/22/18 08:27 1 TAB Folic Acid (Folvite Tab) 1 mg QAM PO 06/21/18 09:00 07/21/18 08:59 06/22/18 08:35 1 MG Magnesium Oxide (Mag-Ox Tab) 400 mg BID PO 06/21/18 21:00 07/21/18 20:59 Future hold 06/22/18 08:30 400 MG Magnesium Oxide (Mag-Ox Tab) 800 mg BID PO 06/22/18 21:00 06/22/18 21:01 Potassium/ Phosphorus/Sodium (Phospha 250 Neutral 155-852-130 Mg) 2 tab BID PO 06/22/18 09:00 07/22/18 08:59 06/22/18 09:26 2 TAB Thiamine HCl (Vitamin B-1 Tab) 100 mg QAM PO 06/22/18 09:00 07/22/18 08:59 06/22/18 09:25 100 MG I & O: 24-Hour Column 06/23/18 08:00 Intake Total 1840 ml Output Total 1675 ml Balance 165 ml Vital Signs: Date Time Temp Pulse Resp B/P (MAP) Pulse Ox O2 Delivery O2 Flow Rate FiO2 06/22/18 13:00 75 24 98 06/22/18 12:00 79 24 98 06/22/18 11:00 70 23 98 06/22/18 10:00 78 24 97 06/22/18 09:00 89 20 97 06/22/18 08:25 98 Room Air 06/22/18 08:02 36.8 80 20 122/96 (105) 97 Room Air 06/22/18 08:00 77 26 96 06/22/18 08:00 Room Air 06/22/18 07:01 66 19 163/92 (115) 91 06/22/18 07:00 64 19 93 06/22/18 06:12 65 23 157/96 (116) 97 Room Air 06/22/18 06:01 69 166/115 (132) 97 Room Air 06/22/18 05:01 66 22 142/88 (106) 98 Room Air 06/22/18 04:01 37.0 65 22 119/74 (89) 97 Room Air 06/22/18 03:02 71 24 138/65 (89) 98 Room Air 06/22/18 02:01 72 22 140/87 (104) 98 Room Air 06/22/18 01:01 69 23 122/81 (95) 98 Room Air 06/22/18 00:01 36.8 78 23 130/79 (96) 97 Room Air 06/21/18 23:01 74 22 115/74 (88) 94 Room Air 06/21/18 22:01 72 21 132/74 (93) 98 Room Air 06/21/18 21:02 77 15 123/67 (85) 97 Room Air 06/21/18 20:01 37.0 74 21 144/90 (108) 99 Room Air 06/21/18 20:00 97 Room Air 06/21/18 19:02 76 17 147/97 (114) 99 Room Air 06/21/18 18:00 77 16 133/80 (97) 98 Room Air 06/21/18 16:00 36.7 64 18 146/88 (107) 99 Room Air Laboratory Results: Last 24 Hours Test 06/21/18 15:55 06/21/18 19:55 06/21/18 23:58 06/22/18 04:11 Sodium Level 122 mmol/L 122 mmol/L 122 mmol/L 122 mmol/L Potassium Level 3.6 mmol/L 3.6 mmol/L 3.6 mmol/L 3.6 mmol/L Chloride Level 89 mmol/L 89 mmol/L 91 mmol/L 91 mmol/L Carbon Dioxide Level 26 mmol/L 26 mmol/L 25 mmol/L 23 mmol/L Anion Gap 7.0 mmol/L 7.0 mmol/L 6.0 mmol/L 8.0 mmol/L Blood Urea Nitrogen 12 mg/dl 13 mg/dl 11 mg/dl 9 mg/dl Creatinine 0.96 mg/dl 1.11 mg/dl 0.95 mg/dl 0.88 mg/dl Est Creatinine Clear Calc Drug Dose 79.2 ml/min 68.5 ml/min 80.0 ml/min 86.4 ml/min Estimated GFR () 95.8 80.3 97.0 104.5 Estimated GFR (Non- 82.6 69.3 83.7 90.1 BUN/Creatinine Ratio 12.7 11.3 11.3 10.1 Random Glucose 97 mg/dl 119 mg/dl 134 mg/dl 105 mg/dl Calcium Level 8.3 mg/dl 8.1 mg/dl 7.8 mg/dl 7.5 mg/dl White Blood Count 4.87 K/uL Red Blood Count 2.98 M/uL Hemoglobin 10.1 g/dL Hematocrit 27.6 % Mean Corpuscular Volume 92.6 fL Mean Corpuscular Hemoglobin 33.9 pg Mean Corpuscular Hemoglobin Concent 36.6 g/dl RDW Standard Deviation 49.7 fL RDW Coefficient of Variation 14.7 % Platelet Count 98 K/uL Mean Platelet Volume 9.1 fL Platelet Estimate DECREASED Phosphorus Level 1.9 mg/dl Magnesium Level 1.6 mg/dl Test 06/22/18 04:50 06/22/18 09:54 Urine Osmolality 280 mOms/kg Sodium Level 127 mmol/L Potassium Level 3.6 mmol/L Chloride Level 96 mmol/L Carbon Dioxide Level 23 mmol/L Anion Gap 8.0 mmol/L Blood Urea Nitrogen 8 mg/dl Creatinine 0.91 mg/dl Est Creatinine Clear Calc Drug Dose 91.8 ml/min Estimated GFR () 102.1 Estimated GFR (Non- 88.1 BUN/Creatinine Ratio 9.3 Random Glucose 127 mg/dl Calcium Level 8.1 mg/dl
[2018-06-22 16:51] LABS: CREATININE 1.01 mg/dl (0.60-1.40); POTASSIUM 3.9 mmol/L (3.5-5.1)
[2018-06-22] MEDS ORDERED: MAGNESIUM OXIDE 400 MG TAB PO SCH (21:00)
[2018-06-22 22:38] LABS: CALCIUM 7.9 mg/dl (8.5-10.1); CREATININE 1.05 mg/dl (0.60-1.40); POTASSIUM 3.7 mmol/L (3.5-5.1)
[2018-06-23] VITALS (9 sets, daily range): BP systolic 123–177; BP diastolic 68–97; PULSE 68–85; TEMP 36.5–37.6; O2SAT 94–100
[2018-06-23] MEDS: SODIUM CHLORIDE 0.9% 1000ML 1,000 ML IV SCH ×3 (00:09→18:12)
[2018-06-23 04:16] LABS: RETIC COUNT % 1.1 % (0.5-2.0)
[2018-06-23 04:37] LABS: CALCIUM 7.8 mg/dl (8.5-10.1); CREATININE 0.94 mg/dl (0.60-1.40); POTASSIUM 3.7 mmol/L (3.5-5.1)
[2018-06-23] MEDS: CHLORDIAZEPOXIDE 25MG Q8H DOSE PO SCH (06:24)
[2018-06-23] MEDS: LOSARTAN POTASSIUM 50 MG TAB PO SCH (07:57)
[2018-06-23] MEDS: ASPIRIN 81 MG ECTAB PO SCH (07:57)
[2018-06-23] MEDS: MAGNESIUM OXIDE 400 MG TAB PO SCH ×2 (07:57→20:32)
[2018-06-23] MEDS: CEROVITE ADV FORMULA TAB PO SCH (07:57)
[2018-06-23] MEDS: THIAMINE HCL 100 MG TAB PO SCH (07:57)
[2018-06-23] MEDS: FAMOTIDINE 20 MG TAB PO SCH ×2 (07:58→20:31)
[2018-06-23] MEDS: POT PHOSPHATE MONOBASIC W/ SOD TAB PO SCH ×2 (07:58→20:32)
[2018-06-23] MEDS: PRAVASTATIN SOD 10 MG TAB PO SCH (07:58)
[2018-06-23] MEDS: CEPHALEXIN MONOHYDRATE 500 MG CAP PO SCH ×4 (07:58→20:31)
[2018-06-23] MEDS: ENOXAPARIN 40 MG/0.4 ML SYR SQ SCH (07:59)
[2018-06-23] MEDS: LABETALOL HCL 200 MG TAB PO SCH ×2 (07:59→20:32)
[2018-06-23] MEDS: NICOTINE 21 MG/24 HR TDSY TD SCH (08:01)
[2018-06-23] MEDS: LORAZEPAM 1 MG TAB PO PRN (08:02)
--- NOTE | 2018-06-23 08:08 | Progress Note ---
Subjective Date of Service: Jun 23, 2018. Subjective pt was recently sedated and is sleepy, he offers no focal complaints Problem List Medical Problems: (1) Alcoholism Status: Acute (2) Altered mental status, unspecified Status: Acute (3) Weakness Status: Acute Review of Systems Constitutional: No fever, No chills, No sweats Respiratory: No cough, No wheezing, No shortness of breath Cardiac: No chest pain, No orthopnea, No PND Abdomen: No pain, No nausea, No vomiting Male : No dysuria, No urinary frequency Objective Vital Signs Date Time Temp Pulse Resp B/P (MAP) Pulse Ox O2 Delivery O2 Flow Rate FiO2 06/23/18 06:57 37.0 76 24 148/76 (100) 96 Room Air 06/23/18 04:10 37.6 75 24 145/80 (101) 94 Room Air 06/23/18 03:58 36.6 68 19 123/68 (86) 96 Room Air 06/22/18 23:02 36.8 79 22 154/87 (109) 95 Room Air 06/22/18 20:03 37.1 79 20 180/97 (124) 97 Room Air 06/22/18 20:00 Room Air 06/22/18 15:34 76 99 06/22/18 15:30 36.9 69 20 183/97 (125) 95 Room Air 06/22/18 15:00 98 Room Air 06/22/18 13:00 75 24 98 06/22/18 12:00 79 24 98 06/22/18 11:00 70 23 98 06/22/18 10:00 78 24 97 06/22/18 09:00 89 20 97 06/22/18 08:25 98 Room Air Physical Exam General Appearance: WD/WN, + mild distress Eyes: normal inspection, sclerae normal Neck: supple, no JVD Respiratory/Chest: chest non-tender, lungs clear, normal breath sounds Cardiovascular: regular rate, rhythm, no murmur Abdomen: normal bowel sounds, non tender, soft Extremities: no pedal edema, no calf tenderness Neurologic/Psychiatric: alert, + depressed affect Laboratory Results Last 24 Hours Test 06/22/18 09:54 06/22/18 16:00 06/22/18 22:05 06/23/18 03:59 Sodium Level 127 mmol/L 126 mmol/L 126 mmol/L 126 mmol/L Potassium Level 3.6 mmol/L 3.9 mmol/L 3.7 mmol/L 3.7 mmol/L Chloride Level 96 mmol/L 95 mmol/L 95 mmol/L 96 mmol/L Carbon Dioxide Level 23 mmol/L 24 mmol/L 24 mmol/L 23 mmol/L Anion Gap 8.0 mmol/L 7.0 mmol/L 7.0 mmol/L 7.0 mmol/L Blood Urea Nitrogen 8 mg/dl 9 mg/dl 9 mg/dl 8 mg/dl Creatinine 0.91 mg/dl 1.01 mg/dl 1.05 mg/dl 0.94 mg/dl Est Creatinine Clear Calc Drug Dose 91.8 ml/min 82.7 ml/min 79.6 ml/min 88.9 ml/min Estimated GFR () 102.1 90.0 85.9 98.2 Estimated GFR (Non- 88.1 77.7 74.1 84.7 BUN/Creatinine Ratio 9.3 8.8 8.4 8.7 Random Glucose 127 mg/dl 102 mg/dl 112 mg/dl 117 mg/dl Calcium Level 8.1 mg/dl 8.0 mg/dl 7.9 mg/dl 7.8 mg/dl Absolute Reticulocyte Count 0.03 10^6/uL Percent Reticulocyte Count 1.1 % Magnesium Level 1.7 mg/dl Assessment and Plan 63yo male admitted on June 19, 2018 because of severe acute hyponatremia Us=[id number] , foot cellulitis and alcohol abuse, metabolic encephalopathy poa resolved Hyponatremia, acute euvolemic hyponatremia. normalizing with nephrology oversight influenced by excessive beer intake' Gerd on pepcid asymptomatic EtOH abuse and alcohol intoxication upon admission last drink was in the a.m. on the day of admission, non signs of alcohol withdrawal, Thiamine, MVI and Folic acid, reducing prn ativan 06/23 Left foot deformity with cellulitis, resolving Keflex 500mg po q 6 hours HTN, Continues with Cozaar 100mg po daily, Continue Labetalol 200mg po BID, holding diuretics HLP - Pravastatin Lovenox for DVT prevention Continued [facility] stay due to: multiple IV medications needed Discharge planning: uncertain
[2018-06-23] MEDS ORDERED: MAGNESIUM SULFATE 1GM / D5W 100 ML IV ONE (08:30)
--- NOTE | 2018-06-23 12:53 | Nephrology Progress Note ---
Nephrology Progress Note Date of Service Jun 23, 2018. Chief Complaint Hyponatremia Subjective Mr. Meyer was seen & examined in his hospital room this morning. He denies RAE, weakness or nausea. He remains on IV 0.9 NS at 100 cc/hr. He denies dyspnea. Review of Systems Constitutional: No fever Cardiovascular: No chest pain Respiratory: No dyspnea at rest Abdomen: No pain, No nausea, No vomiting Extremities: No leg edema A complete review of systems was performed. Pertinent positives are noted above. All other systems are negative. Vital Signs Last 8 Hrs Date Time Temp Pulse Resp B/P (MAP) Pulse Ox O2 Delivery O2 Flow Rate FiO2 06/23/18 11:48 36.5 69 20 160/97 (118) 97 Room Air 06/23/18 11:28 85 97 06/23/18 08:00 82 06/23/18 08:00 96 Room Air 2.0 06/23/18 06:57 37.0 76 24 148/76 (100) 96 Room Air Last Recorded Weight Weight (Kilograms): 96.000 Physical Exam General Appearance: no apparent distress Head: atraumatic Eyes: PERRL, EOMI Neck: no adenopathy Respiratory/Chest: lungs clear, no respiratory distress Cardiovascular: regular rate, rhythm Abdomen/GI: normal bowel sounds, non tender, soft Extremities/Musculoskelatal: no calf tenderness, no pedal edema Neurologic/Psych: alert, + pertinent finding (oriented to self and place only. Follows commands appropriately) Social History Smoking Status: Current every day smoker Smokeless Tobacco Use: No Alcohol Use: heavy Drug Use: marijuana Marital Status: Housing Status: lives with family Occupation: unemployed Laboratory Results Past 24 Hours 06/22/18 16:00 06/22/18 22:05 06/23/18 03:59 Test 06/22/18 16:00 06/22/18 22:05 06/23/18 03:59 Anion Gap 7.0 mmol/L (3-11) 7.0 mmol/L (3-11) 7.0 mmol/L (3-11) Est Creatinine Clear Calc Drug Dose 82.7 ml/min 79.6 ml/min 88.9 ml/min Estimated GFR () 90.0 85.9 98.2 Estimated GFR (Non- 77.7 74.1 84.7 BUN/Creatinine Ratio 8.8 (10-20) 8.4 (10-20) 8.7 (10-20) Calcium Level 8.0 mg/dl (8.5-10.1) 7.9 mg/dl (8.5-10.1) 7.8 mg/dl (8.5-10.1) Absolute Reticulocyte Count 0.03 10^6/uL (0.02-0.10) Percent Reticulocyte Count 1.1 % (0.5-2.0) Magnesium Level 1.7 mg/dl (1.8-2.4) Allergies Coded Allergies: No Known Allergies (Unverified , 11/29/13) Medications Current Inpatient Medications Medications (Trade) Dose Ordered Sig/Rachel Route Start Time Stop Time Status Last Admin Dose Admin Enoxaparin Sodium (Lovenox Inj) 40 mg Q24H SQ 06/20/18 08:00 07/20/18 07:59 06/23/18 07:59 40 MG Acetaminophen (Tylenol Tab) 650 mg Q4H PRN PO 06/19/18 21:30 07/19/18 21:29 Ondansetron HCl (Zofran Inj) 4 mg Q6H PRN IV 06/19/18 21:30 07/19/18 21:29 Aspirin (Ecotrin Tab) 81 mg DAILY PO 06/20/18 09:00 07/20/18 08:59 06/23/18 07:57 81 MG Labetalol HCl (Normodyne Tab) 200 mg BID PO 06/20/18 09:00 07/20/18 08:59 06/23/18 07:59 200 MG Losartan Potassium (coZAAR TAB) 100 mg DAILY PO 06/20/18 09:00 07/20/18 08:59 06/23/18 07:57 100 MG Pravastatin Sodium (Pravachol Tab) 10 mg DAILY PO 06/20/18 09:00 07/20/18 08:59 06/23/18 07:58 10 MG Cephalexin Monohydrate (Keflex Cap) 500 mg QID PO 06/20/18 09:00 06/30/18 08:59 06/23/18 07:58 500 MG Famotidine (Pepcid Tab) 20 mg BID PO 06/20/18 21:00 07/20/18 20:59 06/23/18 07:58 20 MG Heparin Sodium (Porcine) (Heparin 10 Unit/ ml 5 ml Flush) 5 ml PRN PRN FLUSH 06/20/18 15:00 07/20/18 14:59 Nicotine (Nicoderm Cq 21MG Patch) 1 patch QAM TD 06/21/18 09:00 07/21/18 08:59 06/23/18 08:01 1 PATCH Miscellaneous (Remove Nicoderm Patch) 1 ea HS N/A 06/20/18 21:00 07/20/18 20:59 06/21/18 21:27 1 EA Lorazepam (Ativan Tab) PRN Dosing -Active Protocol UD PRN PO 06/20/18 19:00 07/20/18 18:59 06/23/18 08:02 1 MG Heparin Sodium (Porcine) (Heparin 10 Unit/ ml 5 ml Flush) 5 ml PRN PRN FLUSH 06/21/18 03:15 07/21/18 03:14 Sodium Chloride 1,000 ml @ 100 mls/hr Q10H IV 06/21/18 06:00 07/21/18 05:59 06/23/18 08:01 100 MLS/HR Chlordiazepoxide (Librium Cap) 10 mg Q8H PO 06/23/18 14:00 06/24/18 06:01 Chlordiazepoxide (Librium Cap) 5 mg Q12H PO 06/24/18 18:00 06/25/18 06:01 Multivitamins/ Minerals (Multivitamin W/ Minerals Tab) 1 tab QAM PO 06/21/18 09:00 07/21/18 08:59 06/23/18 07:57 1 TAB Folic Acid (Folvite Tab) 1 mg QAM PO 06/21/18 09:00 07/21/18 08:59 06/23/18 07:58 1 MG Magnesium Oxide (Mag-Ox Tab) 400 mg BID PO 06/21/18 21:00 07/21/18 20:59 Future hold 06/23/18 07:57 400 MG Potassium/ Phosphorus/Sodium (Phospha 250 Neutral 155-852-130 Mg) 2 tab BID PO 06/22/18 09:00 07/22/18 08:59 06/23/18 07:58 2 TAB Thiamine HCl (Vitamin B-1 Tab) 100 mg QAM PO 06/22/18 09:00 07/22/18 08:59 06/23/18 07:57 100 MG Impression (1) Hyponatremia (2) Hypokalemia (3) Alcohol dependence Mr. Meyer is a 63-year-old male with hypertension, history of thalamic CVA, tobacco abuse and chronic alcohol use. He presented to the ED with more than 24 hours of decreased alertness, poor oral intake and generalized weakness. Laboratory evaluation is notable for hypokalemia and severe hyponatremia. Patient appears euvolemic. Clinical presentation is consistent with potomania. Recommendations -- Serum sodium was 126 mmol/L this am. Rate of correction remains appropriate -- Check urine osmolality in am -- Monitor serum sodium q 12 hours -- Serum Mg is being supplemented -- Encourage nutrition
[2018-06-23] MEDS: CHLORDIAZEPOXIDE 10MG Q8H DOSE PO SCH ×2 (14:04→22:09)
[2018-06-23 14:10] LABS: CALCIUM 8.6 mg/dl (8.5-10.1); CREATININE 0.89 mg/dl (0.60-1.40); POTASSIUM 3.7 mmol/L (3.5-5.1)
[2018-06-23] MEDS ORDERED: LORAZEPAM 2 MG/ML 1 ML VIAL IV PRN ×2 (17:15)
[2018-06-24] VITALS (8 sets, daily range): BP systolic 156–200; BP diastolic 84–101; PULSE 70–88; TEMP 36.6–37.4; O2SAT 95–99
[2018-06-24] MEDS: SODIUM CHLORIDE 0.9% 1000ML 1,000 ML IV SCH (04:02)
[2018-06-24] MEDS: CHLORDIAZEPOXIDE 10MG Q8H DOSE PO SCH (05:55)
--- NOTE | 2018-06-24 06:13 | Progress Note ---
Post ICU Progress Note Date & Time Jun 24, 2018 at 06:10 Vital Signs Vital Signs Past 12 Hours Date Time Temp Pulse Resp B/P (MAP) Pulse Ox O2 Delivery O2 Flow Rate FiO2 06/24/18 04:04 36.7 75 20 156/84 (108) 95 Room Air 06/23/18 23:35 37.1 81 23 161/80 (107) 97 Room Air 06/23/18 20:00 Room Air 06/23/18 19:29 37.1 84 24 176/85 (115) 96 Room Air Notes Mental Status: see Notes Nausea / Vomiting: adequately controlled Pain: adequately controlled Airway Patency, RR, SpO2: stable & adequate BP & HR: stable & adequate Patient is a 63-year-old alcoholic male who was initially admitted to the ICU with severe hyponatremia contributed to beer potomania. In addition, the patient was aggressively treated with CIWA protocol for risk for withdrawal symptoms. His sodium was slowly corrected and eventually, the patient was stable for downgraded from the ICU setting. On evaluation this morning, the patient is resting comfortably. He is sleeping at this time. I did not wish to awaken the patient for evaluation at this time. Consider outpatient follow up in 1 to 2 weeks with: PCP, Rehab Medicine, Nephro Repeat imaging needed: Per admitting services. Follow up cultures: None Reviewed progress notes, labs, and inpatient medication list Continue current management Additional recommendations: Encourage rehabilitation. Thank you for allowing us to participate in the care of this patient. At this time, Critical Care Services will sign off on this case. Please feel free to reconsult as needed. Consults & Procedures Consultants: Dr. Mendez, Nephrology
[2018-06-24 06:44] LABS: HEMOGLOBIN 9.8 g/dL (14.0-18.0); MEAN CELL VOLUME 95.2 fL (80-100); MEAN CORPUSCULAR HEMOGLOBIN 33.3 pg (25-34); PLATELET COUNT 129 K/uL (130-400); RED CELL DISTRIBUTION WIDTH CV 15.3 % (11.5-14.5); RED CELL DISTRIBUTION WIDTH SD 53.3 fL (36.4-46.3); WHITE BLOOD COUNT 4.92 K/uL (4.8-10.8)
[2018-06-24] MEDS: PRAVASTATIN SOD 10 MG TAB PO SCH (07:43)
[2018-06-24] MEDS: MAGNESIUM OXIDE 400 MG TAB PO SCH ×2 (07:43→20:19)
[2018-06-24] MEDS: ENOXAPARIN 40 MG/0.4 ML SYR SQ SCH (07:43)
[2018-06-24] MEDS: FAMOTIDINE 20 MG TAB PO SCH ×2 (07:43→20:20)
[2018-06-24] MEDS: NICOTINE 21 MG/24 HR TDSY TD SCH (07:44)
[2018-06-24] MEDS: ASPIRIN 81 MG ECTAB PO SCH (07:44)
[2018-06-24] MEDS: THIAMINE HCL 100 MG TAB PO SCH (07:45)
[2018-06-24] MEDS: LOSARTAN POTASSIUM 50 MG TAB PO SCH (07:45)
[2018-06-24] MEDS: POT PHOSPHATE MONOBASIC W/ SOD TAB PO SCH ×2 (07:45→20:19)
[2018-06-24] MEDS: CEROVITE ADV FORMULA TAB PO SCH (07:45)
[2018-06-24] MEDS: LABETALOL HCL 200 MG TAB PO SCH ×2 (07:45→20:18)
[2018-06-24] MEDS: CEPHALEXIN MONOHYDRATE 500 MG CAP PO SCH ×4 (07:46→20:18)
[2018-06-24] MEDS: CLONIDINE HCL 0.1 MG TAB PO SCH (10:29)
--- NOTE | 2018-06-24 10:42 | Nephrology Progress Note ---
Nephrology Progress Note Date of Service Jun 24, 2018. Chief Complaint Hyponatremia Subjective Mr. Meyer was seen & examined in the PCU this morning. He is tolerating IV hydration without signs of volume overload. He voices no new medical concerns. Serum sodium has improved to 132 mmol/L Review of Systems Constitutional: No fever Cardiovascular: No chest pain Respiratory: No dyspnea at rest Abdomen: No pain, No nausea, No vomiting Extremities: No leg edema A complete review of systems was performed. Pertinent positives are noted above. All other systems are negative. Vital Signs Last 8 Hrs Date Time Temp Pulse Resp B/P (MAP) Pulse Ox O2 Delivery O2 Flow Rate FiO2 06/24/18 07:30 Room Air 06/24/18 07:07 37.4 70 20 172/99 (123) 96 Room Air 06/24/18 04:04 36.7 75 20 156/84 (108) 95 Room Air Last Recorded Weight Weight (Kilograms): 94.700 Physical Exam General Appearance: no apparent distress Head: atraumatic Eyes: PERRL, EOMI Neck: no adenopathy, no JVD Respiratory/Chest: lungs clear, no respiratory distress Cardiovascular: regular rate, rhythm Abdomen/GI: normal bowel sounds, non tender, soft Extremities/Musculoskelatal: no calf tenderness, no pedal edema Neurologic/Psych: alert, oriented x 3 Social History Smoking Status: Current every day smoker Smokeless Tobacco Use: No Alcohol Use: heavy Drug Use: marijuana Marital Status: Housing Status: lives with family Occupation: unemployed Laboratory Results Past 24 Hours 06/24/18 06:18 06/23/18 13:02 06/24/18 06:18 Test 06/23/18 13:02 06/24/18 06:00 06/24/18 06:18 Anion Gap 8.0 mmol/L (3-11) 7.0 mmol/L (3-11) Est Creatinine Clear Calc Drug Dose 96.2 ml/min 85.1 ml/min Estimated GFR () 104.0 91.1 Estimated GFR (Non- 89.7 78.6 BUN/Creatinine Ratio 8.2 (10-20) 7.7 (10-20) Calcium Level 8.6 mg/dl (8.5-10.1) 8.0 mg/dl (8.5-10.1) Urine Osmolality 407 mOms/kg (500-800) Red Blood Count 2.94 M/uL (4.7-6.1) Mean Corpuscular Volume 95.2 fL (80-100) Mean Corpuscular Hemoglobin 33.3 pg (25-34) Mean Corpuscular Hemoglobin Concent 35.0 g/dl (32-36) RDW Standard Deviation 53.3 fL (36.4-46.3) RDW Coefficient of Variation 15.3 % (11.5-14.5) Mean Platelet Volume 9.0 fL (7.4-10.4) Magnesium Level 1.8 mg/dl (1.8-2.4) Allergies Coded Allergies: No Known Allergies (Unverified , 11/29/13) Medications Current Inpatient Medications Medications (Trade) Dose Ordered Sig/Rachel Route Start Time Stop Time Status Last Admin Dose Admin Enoxaparin Sodium (Lovenox Inj) 40 mg Q24H SQ 06/20/18 08:00 07/20/18 07:59 06/24/18 07:43 40 MG Acetaminophen (Tylenol Tab) 650 mg Q4H PRN PO 06/19/18 21:30 07/19/18 21:29 Ondansetron HCl (Zofran Inj) 4 mg Q6H PRN IV 06/19/18 21:30 07/19/18 21:29 Aspirin (Ecotrin Tab) 81 mg DAILY PO 06/20/18 09:00 07/20/18 08:59 06/24/18 07:44 81 MG Labetalol HCl (Normodyne Tab) 200 mg BID PO 06/20/18 09:00 07/20/18 08:59 06/24/18 07:45 200 MG Losartan Potassium (coZAAR TAB) 100 mg DAILY PO 06/20/18 09:00 07/20/18 08:59 06/24/18 07:45 100 MG Pravastatin Sodium (Pravachol Tab) 10 mg DAILY PO 06/20/18 09:00 07/20/18 08:59 06/24/18 07:43 10 MG Cephalexin Monohydrate (Keflex Cap) 500 mg QID PO 06/20/18 09:00 06/30/18 08:59 06/24/18 07:46 500 MG Famotidine (Pepcid Tab) 20 mg BID PO 06/20/18 21:00 8/21/18 20:59 06/24/18 07:43 20 MG Heparin Sodium (Porcine) (Heparin 10 Unit/ ml 5 ml Flush) 5 ml PRN PRN FLUSH 06/20/18 15:00 07/20/18 14:59 Nicotine (Nicoderm Cq 21MG Patch) 1 patch QAM TD 06/21/18 09:00 07/21/18 08:59 06/24/18 07:44 1 PATCH Miscellaneous (Remove Nicoderm Patch) 1 ea HS N/A 06/20/18 21:00 07/20/18 20:59 06/23/18 20:32 1 EA Heparin Sodium (Porcine) (Heparin 10 Unit/ ml 5 ml Flush) 5 ml PRN PRN FLUSH 06/21/18 03:15 07/21/18 03:14 Chlordiazepoxide (Librium Cap) 5 mg Q12H PO 06/24/18 18:00 06/25/18 06:01 Multivitamins/ Minerals (Multivitamin W/ Minerals Tab) 1 tab QAM PO 06/21/18 09:00 07/21/18 08:59 06/24/18 07:45 1 TAB Folic Acid (Folvite Tab) 1 mg QAM PO 06/21/18 09:00 07/21/18 08:59 06/24/18 07:44 1 MG Magnesium Oxide (Mag-Ox Tab) 400 mg BID PO 06/21/18 21:00 07/21/18 20:59 Future hold 06/24/18 07:43 400 MG Potassium/ Phosphorus/Sodium (Phospha 250 Neutral 155-852-130 Mg) 2 tab BID PO 06/22/18 09:00 07/22/18 08:59 06/24/18 07:45 2 TAB Thiamine HCl (Vitamin B-1 Tab) 100 mg QAM PO 06/22/18 09:00 07/22/18 08:59 06/24/18 07:45 100 MG Lorazepam (Ativan Inj) 1 mg Q4H PRN IV 06/23/18 17:15 07/23/18 17:14 Lorazepam (Ativan Inj) 0.5 mg Q4H PRN IV 06/23/18 17:15 07/23/18 17:14 Clonidine HCl (Catapres Tab) 0.1 mg QAM PO 06/24/18 09:00 07/24/18 08:59 06/24/18 10:29 0.1 MG Impression (1) Hyponatremia (2) Hypokalemia (3) Alcohol dependence Mr. Meyer is a 63-year-old male with hypertension, history of thalamic CVA, tobacco abuse and chronic alcohol use. He presented to the ED with more than 24 hours of decreased alertness, poor oral intake and generalized weakness. Laboratory evaluation is notable for hypokalemia and severe hyponatremia. Patient appears euvolemic. Clinical presentation is consistent with potomania. Recommendations -- Serum sodium has improved to 132 this morning. -- Rate of sodium correction is appropriate -- Continue gentle hydration w/ 0.9NS. May be able to heplock IV in am -- No further Nephrology evaluation indicated at this time. Will sign off. Please call if further assistance is needed.
--- NOTE | 2018-06-24 15:26 | Progress Note ---
Subjective Date of Service: Jun 24, 2018. Subjective this pt is sedate but awakes and answers questions. I did speak to ex who he lives with he offers no focal complaints Problem List Medical Problems: (1) Alcoholism Status: Acute (2) Altered mental status, unspecified Status: Acute (3) Weakness Status: Acute Review of Systems Constitutional: + weakness, + fatigue, No fever, No chills Eyes: No worsening of vision, No eye pain Respiratory: No cough, No wheezing Cardiac: No chest pain, No PND, No edema Abdomen: No pain, No nausea, No vomiting, No diarrhea Musculoskeletal: No joint pain, No muscle pain Neurologic: + weakness, No memory loss, No paralysis Psychiatric: No depression symptoms, No anhedonism Objective Vital Signs Date Time Temp Pulse Resp B/P (MAP) Pulse Ox O2 Delivery O2 Flow Rate FiO2 06/24/18 11:05 37.2 77 20 163/87 (112) 96 Room Air 06/24/18 07:30 Room Air 06/24/18 07:07 37.4 70 20 172/99 (123) 96 Room Air 06/24/18 04:04 36.7 75 20 156/84 (108) 95 Room Air 06/23/18 23:35 37.1 81 23 161/80 (107) 97 Room Air 06/23/18 20:00 Room Air 06/23/18 19:29 37.1 84 24 176/85 (115) 96 Room Air Physical Exam General Appearance: WD/WN, + moderate distress Eyes: normal inspection, sclerae normal Neck: supple, no JVD Respiratory/Chest: chest non-tender, lungs clear Cardiovascular: regular rate, rhythm, no murmur Abdomen: normal bowel sounds, non tender, soft Extremities: no pedal edema, no calf tenderness Neurologic/Psychiatric: alert, + depressed affect Laboratory Results Last 24 Hours Test 06/24/18 06:00 06/24/18 06:18 Urine Osmolality 407 mOms/kg White Blood Count 4.92 K/uL Red Blood Count 2.94 M/uL Hemoglobin 9.8 g/dL Hematocrit 28.0 % Mean Corpuscular Volume 95.2 fL Mean Corpuscular Hemoglobin 33.3 pg Mean Corpuscular Hemoglobin Concent 35.0 g/dl RDW Standard Deviation 53.3 fL RDW Coefficient of Variation 15.3 % Platelet Count 129 K/uL Mean Platelet Volume 9.0 fL Sodium Level 132 mmol/L Potassium Level 4.0 mmol/L Chloride Level 102 mmol/L Carbon Dioxide Level 23 mmol/L Anion Gap 7.0 mmol/L Blood Urea Nitrogen 8 mg/dl Creatinine 1.00 mg/dl Est Creatinine Clear Calc Drug Dose 85.1 ml/min Estimated GFR () 91.1 Estimated GFR (Non- 78.6 BUN/Creatinine Ratio 7.7 Random Glucose 83 mg/dl Calcium Level 8.0 mg/dl Magnesium Level 1.8 mg/dl Assessment and Plan 63yo male admitted on June 19, 2018 because of severe acute hyponatremia By=806 , foot cellulitis and alcohol abuse, metabolic encephalopathy poa resolved Hyponatremia, acute euvolemic hyponatremia. has improved stopped ivf influenced by excessive beer intake' family states will try to have pt stop drinking Gerd remains on pepcid asymptomatic EtOH abuse and alcohol intoxication upon admission last drink was in the a.m. on the day of admission, non signs of alcohol withdrawal, Thiamine, MVI and Folic acid, reducing prn ativan 06/23, still is sleepy Left foot deformity with cellulitis, resolving Keflex 500mg po q 6 hours, family requests Dr Man referral HTN, remains high, Continues with Cozaar 100mg po daily, Continue Labetalol 200mg po BID, adding clonidine HLP - Pravastatin Lovenox for DVT prevention Continued [facility] stay due to: multiple IV medications needed Discharge planning: uncertain
[2018-06-24] MEDS: CHLORDIAZEPOXIDE 5MG Q12H DOSE PO SCH (17:29)
[2018-06-24] MEDS: HydrALAZINE 10 MG TAB PO PRN (21:58)
[2018-06-25] MEDS: CHLORDIAZEPOXIDE 5MG Q12H DOSE PO SCH (06:01)
[2018-06-25 06:17] LABS: CALCIUM 8.1 mg/dl (8.5-10.1); POTASSIUM 3.9 mmol/L (3.5-5.1)
[2018-06-25 07:32] VITALS: BP 163/91; PULSE 74; TEMP 36.9; O2SAT 97
[2018-06-25] MEDS: CLONIDINE HCL 0.1 MG TAB PO SCH (07:59)
[2018-06-25] MEDS: ASPIRIN 81 MG ECTAB PO SCH (08:00)
[2018-06-25] MEDS: LOSARTAN POTASSIUM 50 MG TAB PO SCH (08:00)
[2018-06-25] MEDS: CEPHALEXIN MONOHYDRATE 500 MG CAP PO SCH ×4 (08:01→20:18)
[2018-06-25] MEDS: MAGNESIUM OXIDE 400 MG TAB PO SCH ×2 (08:01→20:19)
[2018-06-25] MEDS: LABETALOL HCL 200 MG TAB PO SCH ×2 (08:02→20:20)
[2018-06-25] MEDS: CEROVITE ADV FORMULA TAB PO SCH (08:02)
[2018-06-25] MEDS: FAMOTIDINE 20 MG TAB PO SCH ×2 (08:02→20:20)
[2018-06-25] MEDS: POT PHOSPHATE MONOBASIC W/ SOD TAB PO SCH ×2 (08:02→20:21)
[2018-06-25] MEDS: PRAVASTATIN SOD 10 MG TAB PO SCH (08:03)
[2018-06-25] MEDS: THIAMINE HCL 100 MG TAB PO SCH (08:03)
[2018-06-25] MEDS: ENOXAPARIN 40 MG/0.4 ML SYR SQ SCH (08:05)
[2018-06-25] MEDS: NICOTINE 21 MG/24 HR TDSY TD SCH (08:07)
[2018-06-25] MEDS ORDERED: FUROSEMIDE INJ 20 MG in SYRINGE 0 ML IV ONE (14:00)
--- NOTE | 2018-06-25 15:28 | Progress Note ---
Subjective Date of Service: Jun 25, 2018. Subjective this pt is sliglty fatigued and has some SCOTT, family is scheduled to take patient home, given his smoking history there is concerns for COPD impacting his SOB Problem List Medical Problems: (1) Alcoholism Status: Acute (2) Altered mental status, unspecified Status: Acute (3) Weakness Status: Acute Review of Systems Constitutional: + weakness, + fatigue, No fever, No chills Respiratory: No cough, No shortness of breath, No dyspnea on exertion Cardiac: + edema, + problem reported (left foot deformity), No chest pain Abdomen: No pain, No vomiting, No diarrhea Male : No dysuria, No incontinence Neurologic: No memory loss, No weakness Psychiatric: No depression symptoms, No anhedonism Objective Vital Signs Date Time Temp Pulse Resp B/P (MAP) Pulse Ox O2 Delivery O2 Flow Rate FiO2 06/25/18 08:00 Room Air 06/25/18 07:32 36.9 74 20 163/91 (115) 97 Room Air 06/25/18 00:00 Room Air 06/24/18 23:32 37.0 79 20 161/90 (113) 97 Room Air 06/24/18 21:15 88 200/101 (134) 06/24/18 17:20 36.6 80 22 98 1.0 06/24/18 16:55 36.9 82 20 187/94 (125) 99 Room Air 06/24/18 16:55 Room Air 06/24/18 15:37 36.6 80 22 158/89 (112) 98 Room Air Physical Exam General Appearance: WD/WN, + mild distress Eyes: normal inspection, sclerae normal Neck: supple, no JVD Respiratory/Chest: chest non-tender, no respiratory distress, + decreased breath sounds Cardiovascular: regular rate, rhythm, no murmur Abdomen: normal bowel sounds, non tender, soft Extremities: no pedal edema, + pertinent finding (left leg with deformity to ankle) Neurologic/Psychiatric: alert, oriented x 3 Laboratory Results Last 24 Hours Test 06/24/18 20:07 06/25/18 05:31 06/25/18 07:42 06/25/18 11:48 Bedside Glucose 127 mg/dl 121 mg/dl 125 mg/dl Sodium Level 131 mmol/L Potassium Level 3.9 mmol/L Chloride Level 101 mmol/L Carbon Dioxide Level 24 mmol/L Anion Gap 6.0 mmol/L Blood Urea Nitrogen 8 mg/dl Creatinine 1.00 mg/dl Est Creatinine Clear Calc Drug Dose 85.1 ml/min Estimated GFR () 91.1 Estimated GFR (Non- 78.6 BUN/Creatinine Ratio 7.8 Random Glucose 99 mg/dl Calcium Level 8.1 mg/dl Assessment and Plan 63yo male admitted on June 19, 2018 because of severe acute hyponatremia Mb=725 , foot cellulitis and alcohol abuse, metabolic encephalopathy poa resolved Hyponatremia, acute euvolemic hyponatremia. has improved given some sob, will give a dose of lasix influenced by excessive beer intake' family states will try to have pt stop drinking SOB likely maybe from underlying non diagnosed COPD given smoking history will have combivent Gerd pepcid EtOH abuse and alcohol intoxication upon admission last drink was in the a.m. on the day of admission, non signs of alcohol withdrawal, Thiamine, MVI and Folic acid, reducing prn ativan 06/23, still is sleepy Left foot deformity with cellulitis, resolving Keflex 500mg po q 6 hours, family requests Dr Man referral, he did reference the xrays, will see as outpt HTN, Cozaar 100mg po daily, Continue Labetalol 200mg po BID, added clonidine HLP - Pravastatin Lovenox for DVT prevention Continued [facility] stay due to: multiple IV medications needed Discharge planning: uncertain
[2018-06-25] MEDS: IPRATROPIUM BROMIDE/ALBUTEROL respimat INH INH SCH ×3 (15:35→20:17)
[2018-06-25 16:00] VITALS: BP 161/91; PULSE 73; TEMP 36.8; O2SAT 98
[2018-06-25] MEDS ORDERED: NURSING VERBAL MED ORDER ONE (18:45)
[2018-06-25 23:03] VITALS: BP 166/100; PULSE 71; TEMP 36.8; O2SAT 96
[2018-06-26 05:55] LABS: HEMATOCRIT 28.4 % (42-52); HEMOGLOBIN 9.7 g/dL (14.0-18.0); MEAN CELL VOLUME 95.6 fL (80-100); MEAN CORPUSCULAR HEMOGLOBIN 32.7 pg (25-34); MEAN CORPUSCULAR HGB CONC 34.2 g/dl (32-36); MEAN PLATELET VOLUME 8.7 fL (7.4-10.4); PLATELET COUNT 165 K/uL (130-400); RED CELL DISTRIBUTION WIDTH CV 15.3 % (11.5-14.5); RED CELL DISTRIBUTION WIDTH SD 53.5 fL (36.4-46.3); WHITE BLOOD COUNT 3.82 K/uL (4.8-10.8)
[2018-06-26 06:24] LABS: CALCIUM 8.4 mg/dl (8.5-10.1); POTASSIUM 3.9 mmol/L (3.5-5.1)
[2018-06-26 07:50] VITALS: BP 168/90; PULSE 68
[2018-06-26] MEDS ORDERED: FUROSEMIDE 20 MG TAB PO SCH (08:00)
[2018-06-26] MEDS: LABETALOL HCL 200 MG TAB PO SCH (08:18)
[2018-06-26] MEDS: ASPIRIN 81 MG ECTAB PO SCH (08:19)
[2018-06-26] MEDS: POT PHOSPHATE MONOBASIC W/ SOD TAB PO SCH (08:19)
[2018-06-26] MEDS: CEROVITE ADV FORMULA TAB PO SCH (08:19)
[2018-06-26] MEDS: THIAMINE HCL 100 MG TAB PO SCH (08:19)
[2018-06-26] MEDS: LOSARTAN POTASSIUM 50 MG TAB PO SCH (08:19)
[2018-06-26] MEDS: FAMOTIDINE 20 MG TAB PO SCH (08:19)
[2018-06-26] MEDS: PRAVASTATIN SOD 10 MG TAB PO SCH (08:20)
[2018-06-26] MEDS: CEPHALEXIN MONOHYDRATE 500 MG CAP PO SCH ×2 (08:20→12:36)
[2018-06-26] MEDS: IPRATROPIUM BROMIDE/ALBUTEROL respimat INH INH SCH ×2 (08:21→12:36)
[2018-06-26] MEDS: MAGNESIUM OXIDE 400 MG TAB PO SCH (08:21)
[2018-06-26] MEDS: ENOXAPARIN 40 MG/0.4 ML SYR SQ SCH (08:22)
[2018-06-26] MEDS: NICOTINE 21 MG/24 HR TDSY TD SCH (08:22)
[2018-06-26] MEDS: CLONIDINE HCL 0.1 MG TAB PO SCH (08:23)
[2018-06-26 08:30] VITALS: O2SAT 98
[2018-06-26 08:55] VITALS: BP 165/93; TEMP 36.7; O2SAT 98
[2018-06-26] MEDS ORDERED: CNT PO (09:23)
[2018-06-26] MEDS ORDERED: FURO40TA3 PO (09:23)
[2018-06-26] MEDS ORDERED: IPRA1AER2 INH (09:23)
[2018-06-26] MEDS ORDERED: FAMO1TAB47 PO (09:23)
--- NOTE | 2018-06-26 09:26 | Discharge Instructions ---
Discharge Instructions Date of Service Jun 26, 2018. Admission Reason for Admission: Hyponatremia Discharge Discharge Diagnosis / Problem: low sodium, skin infection, alcohol withdrawal Discharge Goals Goal(s): Diagnostic testing, Therapeutic intervention Activity Recommendations Activity Limitations: as noted below . Instructions / Follow-Up Instructions / Follow-Up I have spoken to DR Man, he reviewed your x rays, and thinks he maybe able to help your ankle, will have outpt evaluation Please do not drink alcohol or excessive plain water, your blood sodium was low , drink when you are thirst and alternate water and other drinks Current Hospital Diet Patient's current hospital diet: Regular Diet Discharge Diet Recommended Diet: Regular Diet Pending Studies Studies pending at discharge: no Laboratory Results Hemoglobin A1c Test 06/20/18 11:56 Range/Units Estimated Average Glucose 120 mg/dl Hemoglobin A1c 5.8 H 4.5-5.6 % Medical Emergencies . Who to Call and When: Medical Emergencies: If at any time you feel your situation is an emergency, please call 911 immediately. . Non-Emergent Contact Non-Emergency issues call your: Primary Care Provider, Specialist (orthopaedics ) Call Non-Emergent contact if: temperature is above 101, your pain is not controlled . . "Provider Documentation" section prepared by Shahab Salinas. .
[2018-06-26 12:05] VITALS: BP 164/110; PULSE 65; TEMP 36.5; O2SAT 100
[2018-06-26] MEDS: HydrALAZINE 10 MG TAB PO PRN (12:36)
[2018-06-26 13:50] VITALS: BP 164/110; PULSE 65; TEMP 36.5; O2SAT 100
[2018-06-26 14:15] VITALS: BP 182/83; PULSE 68
--- NOTE | 2018-06-26 15:19 | Discharge Summary ---
Discharge Summary Date of Service Jun 26, 2018. Discharge Summary Admission Date: Jun 19, 2018 at 22:06 Discharge Date: Jun 26, 2018 Discharge Disposition: Home with services Principal Diagnosis: hyponatremia, cellulitis, alcohol abuse, copd Immunizations: Have You Had Influenza Vaccine: No History of Tetanus Vaccine?: Yes History of Pneumococcal: No History of Hepatitis B Vaccine: No Medication Reconciliation New Medications: Famotidine (Famotidine) 20 Mg Tab 20 MG PO BID, #60 TAB 5 Refills Ipratropium-Albuterol (Combivent Respimat) 1 Aer Aer 1 PUFFS INH QID, #1 INHALER 4 Refills Multivitamins/Minerals (Certavite/Antioxidants) 1 Tab Tab 1 TAB PO QAM, #90 TAB 6 Refills Changed Medications: Furosemide (Lasix) 40 Mg Tab 1 TAB PO DAILY for 30 Days, #30 TAB 5 Refills (Changed from: Furosemide (Lasix) 20 Mg Tab 20 Mg PO DAILY) Continued Medications: Aspirin (Aspirin Ec) 81 Mg Tab 81 MG PO DAILY Hydrochlorothiazide (Hctz) 25 Mg Tab 25 MG PO DAILY, TAB Labetalol (Normodyne) 200 Mg Tab 200 MG PO BID, TAB Losartan Potassium (Cozaar) 100 Mg Tab 100 MG PO DAILY, TAB Pravastatin Sodium (Pravastatin Sodium) 10 Mg Tab 1 TAB PO DAILY Sildenafil Citrate (Pulmonary (Sildenafil Citrate) 20 Mg Tab 40-60 MG PO prn ud Discharge Exam Review of Systems: Constitutional: No fever, No chills Cardiovascular: No chest pain, No orthopnea Abdomen: No pain, No nausea Musculoskeletal: + joint pain, + swelling Genitourinary - Male: No hematuria, No dysuria Physical Exam: General Appearance: WD/WN, no apparent distress Eyes: normal inspection, sclerae normal Neck: supple, no JVD Respiratory/Chest: chest non-tender, lungs clear Abdomen / GI: soft, no organomegaly Hospital Course 63yo male admitted on June 19, 2018 because of severe acute hyponatremia Jk=086 , foot cellulitis and alcohol abuse, metabolic encephalopathy poa resolved Hyponatremia, acute euvolemic hyponatremia. has improved given some sob, resolved, family and patient state will try to have pt stop drinking SOB likely maybe from underlying non diagnosed COPD given smoking history will have combivent Rx Gerd Pepcid EtOH abuse and alcohol intoxication upon admission, strongly encouraged to not drink anymore, Left foot deformity with cellulitis, resolving Keflex 500mg po q 6 hours, family requests Dr Man referral, he did reference the xrays, will see as outpt HTN, Cozaar 100mg po daily, Continue Labetalol 200mg po BID, added clonidine HLP - Pravastatin Total Time Spent: Greater than 30 minutes This includes examination of the patient, discharge planning, medication reconciliation, and communication with other providers. Discharge Instructions Please refer to the electronic Patient Visit Report (Discharge Instructions) for additional information.
== END 2018-06-26 14:55 | disposition home or self-care (01) | DRG 640 ==
LOC: EDBD 17:50 → C.EDB 17:50 → ENRESERV 21:48 → C.MSICU 22:06 → C.2T 06-22 14:11 → ENRESERV 06-24 15:40 → CANRESERV 06-24 15:40 → ENRESERV 06-24 16:14 → CANRESERV 06-24 16:14 → C.4E 06-24 16:57
PROVIDERS: ADMIT Internal Medicine; ATTEND Internal Medicine
PROC: 02HV33Z Insertion of Infusion Device into Superior Vena Cava, Percutaneous Approach (ICD-10-PCS; principal; 2018-06-19)
DX: E87.1 Hypo-osmolality and hyponatremia (principal); G93.41 Metabolic encephalopathy; L03.116 Cellulitis of left lower limb; F10.188 Alcohol abuse with other alcohol-induced disorder; D61.818 Other pancytopenia; F10.129 Alcohol abuse with intoxication, unspecified; J44.9 Chronic obstructive pulmonary disease, unspecified; M21.962 Unspecified acquired deformity of left lower leg; E87.6 Hypokalemia; K21.9 Gastro-esophageal reflux disease without esophagitis; I10 Essential (primary) hypertension; E78.5 Hyperlipidemia, unspecified; F17.210 Nicotine dependence, cigarettes, uncomplicated; Z51.81 Encounter for therapeutic drug level monitoring; Z79.899 Other long term (current) drug therapy; Z79.82 Long term (current) use of aspirin; Z91.14 Patient's other noncompliance with medication regimen; Z86.73 Personal history of transient ischemic attack (TIA), and cerebral infarction without residual deficits; Z91.81 History of falling; Y90.9 Presence of alcohol in blood, level not specified; Z82.3 Family history of stroke; Z82.49 Family history of ischemic heart disease and other diseases of the circulatory system

== ENCOUNTER 2018-07-09 14:54 | Inpatient (IN) | payer OTHER ==
[~2018-07-09] VITALS: Ht 182.9 cm; Wt 90.8 kg
[~2018-07-09 14:54] MED LIST changes: -ASPI81TA25 PO; +CNT PO; +FAMO1TAB47 PO; +FURO40TA3 PO; +IPRA1AER2 INH; -LABE100T3 PO; -LISI-787 PO
[2018-07-09] MEDS ORDERED: SODIUM CHLORIDE 0.9% 1000ML 1,000 ML IV STA (15:17)
[2018-07-09 16:16] LABS: PTT PATIENT 31.6 SECONDS (21.0-31.0)
[2018-07-09] MEDS ORDERED: FURO-85 PO (16:30)
[2018-07-09] MEDS ORDERED: FAMO-103 PO (16:30)
[2018-07-09] MEDS ORDERED: MULT-513 PO (16:30)
[2018-07-09 16:39] LABS: ALBUMIN 3.5 gm/dl (3.4-5.0); ALKALINE PHOSPHATASE 110 U/L (45-117); ALT/SGPT 49 U/L (12-78); AST/SGOT 45 U/L (15-37); BLOOD UREA NITROGEN 7 mg/dl (7-18); CALCIUM 8.8 mg/dl (8.5-10.1); CARBON DIOXIDE 29 mmol/L (21-32); CREATININE 0.83 mg/dl (0.60-1.40); GLUCOSE 107 mg/dl (70-99); HEMOGLOBIN 11.2 g/dL (14.0-18.0); MEAN CELL VOLUME 87.1 fL (80-100); MEAN CORPUSCULAR HEMOGLOBIN 33.6 pg (25-34); MEAN CORPUSCULAR HGB CONC 38.6 g/dl (32-36); MEAN PLATELET VOLUME 9.1 fL (7.4-10.4); PLATELET COUNT 177 K/uL (130-400); POTASSIUM 2.3 mmol/L (3.5-5.1); RED CELL DISTRIBUTION WIDTH CV 15.2 % (11.5-14.5); RED CELL DISTRIBUTION WIDTH SD 48.2 fL (36.4-46.3); SODIUM 102 mmol/L (136-145); TOTAL PROTEIN 7.2 gm/dl (6.4-8.2); WHITE BLOOD COUNT 6.09 K/uL (4.8-10.8)
[2018-07-09 16:47] LABS: BASO % 0.3 %; BASO ABS # 0.02 K/uL (0-0.2); EOS % 0.8 %; EOS ABS # 0.05 K/uL (0-0.5); IG# 0.02 K/uL (0.00-0.02); LYMPH % 11.2 %; LYMPH ABS # 0.68 K/uL (1.2-3.4); MONO % 10.7 %; MONO ABS # 0.65 K/uL (0.11-0.59); NEUT % 76.7 %; NEUT ABS # 4.67 K/uL (1.4-6.5)
[2018-07-09] MEDS ORDERED: POTASSIUM CHLR 10 MEQ / WTR 100 ML IV STA (16:48)
[2018-07-09] MEDS ORDERED: MAGNESIUM SULFATE 1GM / D5W 1 GM BAG IV STA (16:48)
[2018-07-09] MEDS ORDERED: SODIUM CHLORIDE 3% INJ 500 ML IV PRN (18:00)
[2018-07-09] MEDS ORDERED: SODIUM CHLORIDE 3% 500 ML BAG IV SCH (18:00)
--- NOTE | 2018-07-09 18:02 | History and Physical ---
History & Physical Date & Time of Service: Jul 09, 2018 at 18:02 Chief Complaint: Abnormal Lab Work- Critical Per Pts Md/ Primary Care Physician: Alex Zhou D.ONarendra History of Present Illness Source: patient, clinic records, hospital records Patient is a 63yo M with a PMH of alcohol dependence, chronic hyponatremia, HTN and COPD who was directed to present to ED due to abnormal lab work. Was recently hospitalized from June 19- for hyponatremia of 110 and left foot cellulitis. Patient is dependent on alcohol and states that he drinks approximately 30 beers daily. Had a hospital follow-up appointment with PCP Winnie earlier this week and lab work was drawn. Due to hyponatremia amongst other electrolyte abnormalities, PCP called patient and urged him to present to the ED for further evaluation. Patient endorses weakness and fatigue. Patient continues to drink daily with last drink earlier today. Patient states he has been taking some of his medications but not others. Ask me to call his for further information. Per , patient has been falling at home since discharge a few weeks ago. Patient has been taking medication erratically at home, sometimes taking multiple doses at once and other times missing doses. Patient denies confusion , lightheadedness, visual changes, chest pain, shortness of breath, abdominal pain, nausea, vomiting. No seizures. Past Medical/Surgical History Medical Problems: (1) Alcohol dependence Status: Chronic (2) Hepatic steatosis Status: Chronic (3) HTN (hypertension) Status: Chronic (4) Hyponatremia Status: Chronic (5) Noncompliance with medications Status: Chronic (6) Pancytopenia Status: Chronic Social History Smoking Status: Current Every Day Smoker Alcohol Use: heavy (see HPI) Drug Use: marijuana Marital Status: Housing status: lives with family Occupational Status: unemployed Immunizations History of Influenza Vaccine: No History of Tetanus Vaccine?: Yes History of Pneumococcal: No History of Hepatitis B Vaccine: No Allergies Coded Allergies: No Known Allergies (Unverified , 11/29/13) Home Medications Scheduled Aspirin (Aspirin Ec), 81 MG PO DAILY Famotidine (Pepcid), 20 MG PO BID Furosemide (Lasix), 40 MG PO QAM Hydrochlorothiazide (Hctz), 25 MG PO DAILY Ipratropium-Albuterol (Combivent Respimat), 1 PUFFS INH QID Labetalol (Normodyne), 200 MG PO BID Losartan Potassium (Cozaar), 100 MG PO DAILY Multivitamins/Minerals (Mvi With Minerals), 1 TAB PO QAM Pravastatin Sodium (Pravastatin Sodium), 10 MG PO DAILY Sildenafil Citrate (Pulmonary (Sildenafil Citrate), 40-60 MG PO UD Review of Systems Ten systems reviewed and negative except as noted in the HPI. Physical Exam Vital Signs Date Time Temp Pulse Resp B/P (MAP) Pulse Ox O2 Delivery O2 Flow Rate FiO2 07/09/18 17:05 73 22 133/93 96 Room Air 07/09/18 15:59 69 18 135/77 93 Room Air 07/09/18 15:26 73 07/09/18 15:02 36.9 74 18 143/75 95 Room Air General Appearance: WD/WN, no apparent distress, + pertinent finding ( Chronically ill-appearing, disheveled) Head: normocephalic, atraumatic Eyes: normal inspection, PERRL, sclerae normal ENT: normal ENT inspection, hearing grossly normal, pharynx normal Neck: supple, thyroid normal, trachea midline Respiratory/Chest: chest non-tender, lungs clear, normal breath sounds, no respiratory distress, no accessory muscle use Cardiovascular: regular rate, rhythm, no murmur, normal peripheral pulses Abdomen/GI: non tender, soft, no organomegaly Extremities/Musculoskelatal: normal inspection, no calf tenderness, no pedal edema, + pertinent finding (Left foot deformity) Neurologic/Psych: no motor/sensory deficits, alert, normal mood/affect, normal reflexes, + pertinent finding (Poor insight) Skin: normal color, warm/dry Diagnostics Laboratory Results Results Past 24 Hours Test 07/09/18 15:47 07/09/18 15:48 07/09/18 16:40 Range/Units Prothrombin Time 10.9 9.0-12.0 SECONDS Prothromb Time International Ratio 1.0 0.9-1.1 Activated Partial Thromboplast Time 31.6 21.0-31.0 SECONDS Partial Thromboplastin Ratio 1.2 Osmolality 211 280-300 mOsm/kg White Blood Count 6.09 4.8-10.8 K/uL Red Blood Count 3.33 4.7-6.1 M/uL Hemoglobin 11.2 14.0-18.0 g/dL Hematocrit 29.0 42-52 % Mean Corpuscular Volume 87.1 80-100 fL Mean Corpuscular Hemoglobin 33.6 25-34 pg Mean Corpuscular Hemoglobin Concent 38.6 32-36 g/dl Platelet Count 177 130-400 K/uL Mean Platelet Volume 9.1 7.4-10.4 fL Neutrophils (%) (Auto) 76.7 % Lymphocytes (%) (Auto) 11.2 % Monocytes (%) (Auto) 10.7 % Eosinophils (%) (Auto) 0.8 % Basophils (%) (Auto) 0.3 % Neutrophils # (Auto) 4.67 1.4-6.5 K/uL Lymphocytes # (Auto) 0.68 1.2-3.4 K/uL Monocytes # (Auto) 0.65 0.11-0.59 K/uL Eosinophils # (Auto) 0.05 0-0.5 K/uL Basophils # (Auto) 0.02 0-0.2 K/uL RDW Standard Deviation 48.2 36.4-46.3 fL RDW Coefficient of Variation 15.2 11.5-14.5 % Immature Granulocyte % (Auto) 0.3 % Immature Granulocyte # (Auto) 0.02 0.00-0.02 K/uL Basophilic Stippling OCCASIONAL [place] Bodies 1+ Sodium Level 102 136-145 mmol/L Potassium Level 2.3 3.5-5.1 mmol/L Chloride Level 62 98-107 mmol/L Carbon Dioxide Level 29 21-32 mmol/L Anion Gap 11.0 3-11 mmol/L Blood Urea Nitrogen 7 7-18 mg/dl Creatinine 0.83 0.60-1.40 mg/dl Estimated GFR () 107.0 Estimated GFR (Non- 92.3 BUN/Creatinine Ratio 7.8 10-20 Random Glucose 107 70-99 mg/dl Calcium Level 8.8 8.5-10.1 mg/dl Magnesium Level 1.7 1.8-2.4 mg/dl Total Bilirubin 1.2 0.2-1 mg/dl Direct Bilirubin 0.4 0-0.2 mg/dl Aspartate Amino Transf (AST/SGOT) 45 15-37 U/L Alanine Aminotransferase (ALT/SGPT) 49 12-78 U/L Alkaline Phosphatase 110 45-117 U/L Total Protein 7.2 6.4-8.2 gm/dl Albumin 3.5 3.4-5.0 gm/dl Ethyl Alcohol mg/dL < 3.0 0-3 mg/dl Urine Color YELLOW Urine Appearance CLEAR CLEAR Urine pH 7.5 4.5-7.5 Urine Specific [place] 1.010 1.000-1.030 Urine Protein NEG NEG Urine Glucose (UA) NEG NEG Urine Ketones 1+ NEG Urine Occult Blood NEG NEG Urine Nitrite NEG NEG Urine Bilirubin NEG NEG Urine Urobilinogen NEG NEG Urine Leukocyte Esterase NEG NEG Urine Random Sodium 50 mEq/L EKG First-degree AV block at 71 bpm. Prolonged QT. Impression Assessment and Plan Patient is a 63yo M with a PMH of alcohol dependence, chronic hyponatremia, HTN and COPD who was directed to present to ED due to severe hyponatremia on lab work ordered by PCP. Severe hyponatremia -Serum sodium of 102 on admission -In setting of alcohol abuse--30 beers daily, per -Also taking medications (including lasix, hctz) incorrectly at home) -Mildly symptomatic with weakness, no reported falls at home -Hypotonic hyponatremia with a serum osm of 211 -Consulted nephrology -Hypertonic saline ordered -Appreciate further recommendations -Consulted executive vice president and chief financial officer -Will be monitored in ICU -Keep strict NPO for now -Seizure precautions Hypokalemia -Potassium of 2.3 on admission -Given 10 mEq in ED, 40 mEq ordered -Continue monitoring with PRP every 4 hours Hypomagnesemia -Magnesium replaced in the ED -Continue monitoring Alcohol dependence -Last drink was earlier today -Alcohol level <3 mg/dl -Thiamine IV ordered now -Withdrawal protocol ordered with gabapentin, IV Ativan as needed -PO thiamine, multivitamin for tomorrow Hypertension -Normotensive -Hold home BP medications -Add IV antihypertensives PRN if needed GERD -Pepcid COPD -Stable -Continue home inhalers DVT Ppx: SCDs Code status: FULL, as per discussion with patient at bedside PCP: Rakesh Zhou Dispo: Admitted to ICU. Discharge planning ordered. Patient seen in collaboration with Dr. Garcia. Please see addendum. Resuscitation Status VTE Prophylaxis Will order VTE Prophylaxis: Yes
[2018-07-09] MEDS ORDERED: PATIENT'S HEIGHT AND/OR WEIGHT NEEDED SCH (18:15)
[2018-07-09] MEDS ORDERED: ONDANSETRON INJ 2 MG/ML 2 ML VIAL IV PRN (18:15)
[2018-07-09] MEDS ORDERED: ICU PROTOCOL FOR HYPERGLYCEMIA PRN (18:15)
[2018-07-09] MEDS ORDERED: GABAPENTIN 600 MG TAB PO SCH (18:30)
[2018-07-09] MEDS ORDERED: LORAZEPAM 2 MG/ML 1 ML VIAL IV PRN (18:30)
--- NOTE | 2018-07-09 18:43 | Progress Note ---
Progress Note Date of Service Jul 09, 2018. Progress Note ATTENDING ADDENDUM care coordinated with MICHELLE Mendes please refer to her notes for full details, I agree with her notes patient seen and examined, records reviewed by myself as well on exam, patient seen resting in bed, awake, alert, oriented x 2 speech is rather slow states he feels fine denies headache, dizziness, confusion no other active symptoms VS noted and reviewed oriented x2 , not in distress, speaks in sentences with no effort nor accessory muscle use normal rate, regular rhythm, no murmurs clear breath sounds bilaterally non distended, soft, nontender no bipedal edema, erythema, warmth no neuro deficits Na 102 K 2.3 crea hue ASSESSMENT/PLAN> SEVERE HYPONATREMIA likely from Alcoholism, Dehydration component discussed with Dr. Batista, recommend 100cc bolus of IV 3% saline repeat Na in 1 hour HYPO K AND MG replace with IV K and Mg, monitor ALCOHOLISM alcohol withdrawal protocol including Gabapentin protocol HTN continue Labetalol PO other diagnoses and plan of care as per MICHELLE Mendes's notes Hermelindo Garcia MD
[2018-07-09] MEDS ORDERED: ASPI81TA28 PO (18:59)
[2018-07-09] MEDS ORDERED: LABE1TAB28 PO (18:59)
[2018-07-09] MEDS ORDERED: PRAV10TA39 PO (18:59)
[2018-07-09] MEDS ORDERED: LOSA1TAB38 PO (18:59)
[2018-07-09] MEDS ORDERED: HYDR25TA4 PO (18:59)
[2018-07-09] MEDS ORDERED: SILD1TAB19 PO (18:59)
[2018-07-09] MEDS ORDERED: THIAMINE HCL INJ 100 MG in SYRINGE 9 ML IV STA (19:14)
[2018-07-09] MEDS: POTASSIUM CHLR 10 MEQ / WTR 100 ML IV SCH ×2 (19:28→20:27)
--- NOTE | 2018-07-09 19:46 | Nephrology Consultation ---
Nephrology Consultation Date of Consultation: Jul 09, 2018. Requesting Physician: Dorys Mendes MD Reason for Consultation: Severe Hyponatremia History of Present Illness Patient is a 63 year old male with history of alcohol abuse, hypertension, hepatic steatosis was brought in today by family with altered mental status. Patient had been called by the PCP with the abnormal labs and advised to the emergency room. In the emergency room he had a sodium of 102. Patient recently hospitalized here with hyponatremia at that time he had sodium of 110 and by time of discharge mid-May his sodium was 133. Patient admits to heavy alcohol drinking at least 10 beers daily and possibly more according to family members. It appears patient does not have regular meals. He told me it is once in a while when he feels hungry. Per ED documentation patient was initially disoriented but by the time of my interview he was able to answer questions and give history. We have been asked to evaluate him for severe hyponatremia and advise on management. In the ED he received 500 mL of normal saline. He was also receiving 2 g of magnesium sulfate. He received 10 mEq of potassium chloride for serum potassium of 2.3. Past Medical/Surgical History Medical Problems: (1) Alcoholism Status: Acute (2) Altered mental status, unspecified Status: Acute (3) Weakness Status: Acute Social History Smoking Status: Current Every Day Smoker Alcohol Use: heavy Drug Use: marijuana Marital Status: Housing Status: lives with family Occupation Status: unemployed Allergies Coded Allergies: No Known Allergies (Unverified , 11/29/13) Medications Current Inpatient Medications Medications (Trade) Dose Ordered Sig/Rachel Route Start Time Stop Time Status Last Admin Dose Admin Potassium Chloride 100 ml @ 100 mls/hr Q1H IV 07/09/18 18:15 07/09/18 22:14 Sodium Chloride 500 ml @ 0 mls/hr NOW PRN IV 07/09/18 18:00 08/08/18 17:59 Miscellaneous Information (Patient'S Height And/Or Weight Needed) 1 ea Q1H N/A 07/09/18 18:15 08/08/18 18:14 Miscellaneous Information (Icu Protocol For Hyperglycemia) 1 ea PRN PRN N/A 07/09/18 18:15 07/11/18 18:14 Lorazepam (Ativan Inj) 1 mg ONE PRN IV 07/09/18 18:30 Labetalol HCl (Normodyne Tab) 200 mg BID PO 07/09/18 21:00 08/08/18 20:59 Future Hold Gabapentin (Neurontin Tab) 1,200 mg TODAY@2000 ONCE PO 07/09/18 20:00 07/09/18 20:01 Gabapentin (Neurontin Tab) 600 mg Q6H PO 07/10/18 06:00 07/10/18 12:01 Gabapentin (Neurontin Tab) 600 mg Q8H PO 07/10/18 22:00 07/11/18 14:01 Gabapentin (Neurontin Tab) 600 mg Q12H PO 07/12/18 00:00 07/12/18 12:01 Gabapentin (Neurontin Tab) 600 mg Q24H PO 07/13/18 12:00 07/13/18 12:01 Thiamine HCl (Vitamin B-1 Tab) 100 mg QAM PO 07/10/18 09:00 08/09/18 08:59 Multivitamins (Multivitamin Tab) 1 tab QAM PO 07/10/18 09:00 08/09/18 08:59 Home Meds and Scripts Medications Dose Route/Sig Max Daily Dose Days Date Category Mvi With Minerals (Multivitamins/Minerals) Tab 1 Tab PO QAM 07/09/18 Reported Lasix (Furosemide) 20 Mg Tab 40 Mg PO QAM 07/09/18 Reported Pepcid (Famotidine) 20 Mg Tab 20 Mg PO BID 07/09/18 Reported Combivent Respimat (Ipratropium-Albuterol) 1 Aer Aer 1 Puffs INH QID 06/26/18 Rx Aspirin Ec (Aspirin) 81 Mg Tab 81 Mg PO DAILY 06/19/18 Reported Sildenafil Citrate (Sildenafil Citrate (Pulmonary) 20 Mg Tab 40-60 Mg PO UD 06/19/18 Reported Pravastatin Sodium 10 Mg Tab 10 Mg PO DAILY 06/19/18 Reported Cozaar (Losartan Potassium) 100 Mg Tab 100 Mg PO DAILY 06/19/18 Reported Normodyne (Labetalol HCl) 200 Mg Tab 200 Mg PO BID 06/19/18 Reported Hctz (Hydrochlorothiazide) 25 Mg Tab 25 Mg PO DAILY 06/19/18 Reported Review of Systems Constitutional: No fever, No chills Eyes: No problem reported ENT: No unusual epistaxis, No nasal symptoms Respiratory: No cough, No shortness of breath Cardiac: No chest pain Abdomen: No nausea, No vomiting Male : No dysuria, No urinary frequency Neuro: + weakness Heme: No abnormal bleeding/bruising Skin: No rash Physical Exam Date Time Temp Pulse Resp B/P (MAP) Pulse Ox O2 Delivery O2 Flow Rate FiO2 07/09/18 18:27 68 16 128/85 94 Room Air 07/09/18 17:05 73 22 133/93 96 Room Air 07/09/18 15:59 69 18 135/77 93 Room Air 07/09/18 15:26 73 07/09/18 15:02 36.9 74 18 143/75 95 Room Air General Appearance: no apparent distress Eyes: normal inspection, PERRL ENT: normal ENT inspection, hearing grossly normal Neck: supple, no adenopathy, no JVD Respiratory/Chest: chest non-tender, lungs clear Cardiovascular: regular rate, rhythm, no edema, no murmur Extremities: normal range of motion, non-tender Neurologic/Psych: alert, normal mood/affect, oriented x 3 (Patient is oriented to place and person) Skin: no rash Diagnostics Last 24 Hours Test 07/09/18 15:47 07/09/18 15:48 07/09/18 16:40 07/09/18 19:09 Prothrombin Time 10.9 SECONDS Prothromb Time International Ratio 1.0 Activated Partial Thromboplast Time 31.6 SECONDS Partial Thromboplastin Ratio 1.2 Osmolality 211 mOsm/kg White Blood Count 6.09 K/uL Red Blood Count 3.33 M/uL Hemoglobin 11.2 g/dL Hematocrit 29.0 % Mean Corpuscular Volume 87.1 fL Mean Corpuscular Hemoglobin 33.6 pg Mean Corpuscular Hemoglobin Concent 38.6 g/dl Platelet Count 177 K/uL Mean Platelet Volume 9.1 fL Neutrophils (%) (Auto) 76.7 % Lymphocytes (%) (Auto) 11.2 % Monocytes (%) (Auto) 10.7 % Eosinophils (%) (Auto) 0.8 % Basophils (%) (Auto) 0.3 % Neutrophils # (Auto) 4.67 K/uL Lymphocytes # (Auto) 0.68 K/uL Monocytes # (Auto) 0.65 K/uL Eosinophils # (Auto) 0.05 K/uL Basophils # (Auto) 0.02 K/uL RDW Standard Deviation 48.2 fL RDW Coefficient of Variation 15.2 % Immature Granulocyte % (Auto) 0.3 % Immature Granulocyte # (Auto) 0.02 K/uL Basophilic Stippling OCCASIONAL [place] Bodies 1+ Sodium Level 102 mmol/L Potassium Level 2.3 mmol/L Chloride Level 62 mmol/L Carbon Dioxide Level 29 mmol/L Anion Gap 11.0 mmol/L Blood Urea Nitrogen 7 mg/dl Creatinine 0.83 mg/dl Estimated GFR () 107.0 Estimated GFR (Non- 92.3 BUN/Creatinine Ratio 7.8 Random Glucose 107 mg/dl Calcium Level 8.8 mg/dl Magnesium Level 1.7 mg/dl Total Bilirubin 1.2 mg/dl Direct Bilirubin 0.4 mg/dl Aspartate Amino Transf (AST/SGOT) 45 U/L Alanine Aminotransferase (ALT/SGPT) 49 U/L Alkaline Phosphatase 110 U/L Total Protein 7.2 gm/dl Albumin 3.5 gm/dl Ethyl Alcohol mg/dL < 3.0 mg/dl Urine Color YELLOW Urine Appearance CLEAR Urine pH 7.5 Urine Specific [place] 1.010 Urine Protein NEG Urine Glucose (UA) NEG Urine Ketones 1+ Urine Occult Blood NEG Urine Nitrite NEG Urine Bilirubin NEG Urine Urobilinogen NEG Urine Leukocyte Esterase NEG Urine Random Sodium 50 mEq/L Assessment & Plan This is a 63-year-old male with history of alcohol dependency, chronic hyponatremia, hypertension and hepatic steatosis who is being evaluated for acute on chronic hyponatremia 1. Acute severe hyponatremia: Patient has acute on chronic hyponatremia. He has a sodium of 102 with the mental status changes. His serum Osmolite was 211 which makes it a true hypoosmolar hyponatremia. This is likely in setting of chronic alcohol ingestion. Patient was recently hospitalized with hyponatremia in May when he had a sodium of 110 and by the time of discharge around 21 June his sodium was 133 Recommend: Checking a urine osmolality Start him on DDAVP 2 mcg IV every 6 hours to shut off the urine output as he is at risk of overcorrection Stat hypertonic saline [3%] at 100 mL bolus, followed by 40 mL/h infusion. Monitor sodium every 2 hourly. Target rise of sodium is 2-4 points in the first 4 hours and 6-8 points over 24 hour. The 3% saline can be stopped once the patient is close to achieving his target rate of correction If patient is allowed to take orally, restrict p.o. intake to 1 L in 24 hours. 2. Hypertension: His blood pressure is well controlled. Would hold any antihypertensives at the moment. 3. Hypokalemia: Recommend 40 mEq of potassium chloride this can be given as a bolus. Monitor potassium and replete as needed with cautioned that this can also increase his sodium. 4. Hypomagnesemia: Patient has received 2 g of magnesium sulfate. Monitor and replace as needed Thank you for the courtesy of the consultation renal will follow with you
--- NOTE | 2018-07-09 19:49 | Critical Care Consultation ---
Critical Care Consultation Date of Consultation: Jul 09, 2018. Attending Physician: Hermelindo Garcia MD Reason for Consultation: 63-year-old male with acute on chronic hyponatremia likely secondary to beer potomania requiring close monitoring during active correction of electrolytes. History of Present Illness Patient is a 63-year-old male with significant past medical history of hypertension, hepatic steatosis, and alcohol abuse who presented to the emergency department after repeat labs from recent hospitalization demonstrate persistent hyponatremia. Patient has reportedly been having frequent falls. He has had occasional episodes of confusion per family. He continues to drink approximately 10 beers a day. He has a poor appetite. Patient is a poor historian in general. He is awake, alert, and oriented to person, place, time, and location. Initially, he was refusing to stay in the hospital per nursing reports, however he agreed to stay overnight. He offers no complaints at this point. Past Medical/Surgical History Medical Problems: (1) Alcohol dependence (2) Hepatic steatosis (3) HTN (hypertension) (4) Hyponatremia (5) Noncompliance with medications (6) Pancytopenia Social History Smoking Status: Current Every Day Smoker Smokeless Tobacco Use: No Alcohol Use: heavy (see HPI) Drug Use: marijuana Marital Status: Housing Status: lives with family Occupation Status: unemployed Allergies Coded Allergies: No Known Allergies (Unverified , 11/29/13) Home Medications Scheduled Aspirin (Aspirin Ec), 81 MG PO DAILY Famotidine (Pepcid), 20 MG PO BID Furosemide (Lasix), 40 MG PO QAM Hydrochlorothiazide (Hctz), 25 MG PO DAILY Ipratropium-Albuterol (Combivent Respimat), 1 PUFFS INH QID Labetalol (Normodyne), 200 MG PO BID Losartan Potassium (Cozaar), 100 MG PO DAILY Multivitamins/Minerals (Mvi With Minerals), 1 TAB PO QAM Pravastatin Sodium (Pravastatin Sodium), 10 MG PO DAILY Sildenafil Citrate (Pulmonary (Sildenafil Citrate), 40-60 MG PO UD Current Inpatient Medications Current Inpatient Medications Medications (Trade) Dose Ordered Sig/Rachel Route Start Time Stop Time Status Last Admin Dose Admin Potassium Chloride 100 ml @ 100 mls/hr Q1H IV 07/09/18 18:15 07/09/18 22:14 07/09/18 19:28 100 MLS/HR Sodium Chloride 500 ml @ 0 mls/hr NOW PRN IV 07/09/18 18:00 08/08/18 17:59 Miscellaneous Information (I[facility] Protocol For Hyperglycemia) 1 ea PRN PRN N/A 07/09/18 18:15 07/11/18 18:14 Lorazepam (Ativan Inj) 1 mg ONE PRN IV 07/09/18 18:30 Labetalol HCl (Normodyne Tab) 200 mg BID PO 07/09/18 21:00 08/08/18 20:59 Future Hold Gabapentin (Neurontin Tab) 1,200 mg TODAY@2000 ONCE PO 07/09/18 20:00 07/09/18 20:01 Gabapentin (Neurontin Tab) 600 mg Q6H PO 07/10/18 06:00 07/10/18 12:01 Gabapentin (Neurontin Tab) 600 mg Q8H PO 07/10/18 22:00 07/11/18 14:01 Gabapentin (Neurontin Tab) 600 mg Q12H PO 07/12/18 00:00 07/12/18 12:01 Gabapentin (Neurontin Tab) 600 mg Q24H PO 07/13/18 12:00 07/13/18 12:01 Thiamine HCl (Vitamin B-1 Tab) 100 mg QAM PO 07/10/18 09:00 08/09/18 08:59 Multivitamins (Multivitamin Tab) 1 tab QAM PO 07/10/18 09:00 08/09/18 08:59 Review of Systems A complete 10-point Review of Systems was discussed with the patient, with pertinent positives and negatives listed in the History of Present Illness. All remaining Review of Systems questions can be considered negative unless otherwise specified. Physical Exam Date Time Temp Pulse Resp B/P (MAP) Pulse Ox O2 Delivery O2 Flow Rate FiO2 07/09/18 18:27 68 16 128/85 94 Room Air 07/09/18 17:05 73 22 133/93 96 Room Air 07/09/18 15:59 69 18 135/77 93 Room Air 07/09/18 15:26 73 07/09/18 15:02 36.9 74 18 143/75 95 Room Air VITAL SIGNS - Vital signs and nursing notes were reviewed. GENERAL - 63-year-old male appearing his stated age who is in no acute distress. Poor communication. SKIN - Without rashes. HEAD - NC/AT. EYES - PERRL with EOMI bilaterally. Sclera anicteric. Palpebral conjunctiva pink and moist with no injection noted. EARS - No deformities of external structures noted on gross examination bilaterally. No pain elicited with palpation of the tragus bilaterally. NOSE - Midline and without cyanosis. No epistaxis or purulent drainage noted. MOUTH/OROPHARYNX - Without perioral cyanosis. Buccal mucosa pink and moist and without leukoplakia. Tongue midline with equal elevation of palate bilaterally. No tonsillar hypertrophy, erythema, or exudates noted. Poor dentition noted. NECK - Neck with FROM. Supple to palpation. No nuchal rigidity. LUNGS - Chest wall symmetric without accessory muscle use, intercostals retractions, or central cyanosis. Normal vesicular breath sounds CTA B/L. No wheezes, rales, or rhonchi appreciated. CARDIAC - RRR with S1/S2. No murmur, rubs, or gallops appreciated. ABDOMEN - Abdominal contour flat without pulsations or visible masses. BS normoactive all four quadrants. No tenderness, palpable masses, hepatosplenomegaly, or ascites noted. EXTREMITIES - No clubbing or peripheral cyanosis. No pretibial edema present. +3 /5 radial and dorsalis pedis pulses palpated throughout. +5/5 strength noted in UE/LE bilaterally. Varus deformities of the bilateral ankles noted. NEUROLOGIC - Cranial nerves II through XII grossly intact. Sensory intact to light touch throughout. Patellar reflexes +3/4. PSYCH - A&Ox3 and cooperates fully with examiner. Poor historian, but I anticipate this to be patient's baseline. Laboratory Results Last 24 Hours Test 07/09/18 15:47 07/09/18 15:48 07/09/18 16:40 07/09/18 19:09 Prothrombin Time 10.9 SECONDS Prothromb Time International Ratio 1.0 Activated Partial Thromboplast Time 31.6 SECONDS Partial Thromboplastin Ratio 1.2 Osmolality 211 mOsm/kg White Blood Count 6.09 K/uL Red Blood Count 3.33 M/uL Hemoglobin 11.2 g/dL Hematocrit 29.0 % Mean Corpuscular Volume 87.1 fL Mean Corpuscular Hemoglobin 33.6 pg Mean Corpuscular Hemoglobin Concent 38.6 g/dl Platelet Count 177 K/uL Mean Platelet Volume 9.1 fL Neutrophils (%) (Auto) 76.7 % Lymphocytes (%) (Auto) 11.2 % Monocytes (%) (Auto) 10.7 % Eosinophils (%) (Auto) 0.8 % Basophils (%) (Auto) 0.3 % Neutrophils # (Auto) 4.67 K/uL Lymphocytes # (Auto) 0.68 K/uL Monocytes # (Auto) 0.65 K/uL Eosinophils # (Auto) 0.05 K/uL Basophils # (Auto) 0.02 K/uL RDW Standard Deviation 48.2 fL RDW Coefficient of Variation 15.2 % Immature Granulocyte % (Auto) 0.3 % Immature Granulocyte # (Auto) 0.02 K/uL Basophilic Stippling OCCASIONAL [place] Bodies 1+ Sodium Level 102 mmol/L 107 mmol/L Potassium Level 2.3 mmol/L Chloride Level 62 mmol/L Carbon Dioxide Level 29 mmol/L Anion Gap 11.0 mmol/L Blood Urea Nitrogen 7 mg/dl Creatinine 0.83 mg/dl Estimated GFR () 107.0 Estimated GFR (Non- 92.3 BUN/Creatinine Ratio 7.8 Random Glucose 107 mg/dl Calcium Level 8.8 mg/dl Magnesium Level 1.7 mg/dl Total Bilirubin 1.2 mg/dl Direct Bilirubin 0.4 mg/dl Aspartate Amino Transf (AST/SGOT) 45 U/L Alanine Aminotransferase (ALT/SGPT) 49 U/L Alkaline Phosphatase 110 U/L Total Protein 7.2 gm/dl Albumin 3.5 gm/dl Ethyl Alcohol mg/dL < 3.0 mg/dl Urine Color YELLOW Urine Appearance CLEAR Urine pH 7.5 Urine Specific [place] 1.010 Urine Protein NEG Urine Glucose (UA) NEG Urine Ketones 1+ Urine Occult Blood NEG Urine Nitrite NEG Urine Bilirubin NEG Urine Urobilinogen NEG Urine Leukocyte Esterase NEG Urine Random Sodium 50 mEq/L Assessment & Plan (1) Hyponatremia (2) Hypokalemia (3) Alcohol dependence (4) Alcohol abuse (5) HTN (hypertension) (6) Hypomagnesemia Reason Critically Ill: 63-year-old male with acute on chronic hyponatremia likely secondary to beer potomania requiring close monitoring during active correction of electrolytes. Neuro - * CAM ICU: NEGATIVE * Alcohol Abuse: * [facility] protocol. * No significant issues during recent admission. * Will monitor closely for any neurological changes to suggest demyelination. * Seizure precautions. Cardiac - * HTN: * Home Rx as tolerated. * Monitor on tele * EKG: SR w/ 1' AV-block. NO significant ST/T-wave abnormalities per my interpretation. QTc 508ms. Respiratory - * Daily smoker: * O2 PRN * Nebs as needed. GI - * AHA Diet * Free water restriction to 1L/day in the acute phase. RENAL/LYTES - * Hyponatremia: * Likely 2/2 heavy beer drinking and lack of substantial nutrient intake. * Replace judiciously to prevent Osmotic Demyelination Syndrome (ODS). * Corrected quickly w/ 1L NSS. * DDAVP added per nephrology. * Will continue w/ q2h labs for now to correct Na appropriately. * Hypokalemia/Hypomagnesemia: * Will replace w/ regard to above. - * No concerns at this point. ENDO - * No h/o DM/Thyroid Dz: * BSGs w/ ISS/gtt per unit protocol. HEME - * Stable H&H ID - * No c/o infection at this point. * Monitor fever curve. LINES/IV ACCESS - * PIVs x2 DVT PROPHYLAXIS - * Lovenox * SCDs. I have personally spent 45 minutes of critical care time in the direct management of this patient. This is a life/limb threatening event. This includes time spent evaluating patient, direct bedside care, chart review, placing orders, interpretation of diagnostic studies, discussion with consultants, patient, and family members, as well as other required patient management activities. This time is exclusive of all separately billable procedures, and teaching time and separate from and in addition to any other critical care service time. Thank you for this consultation allow us to be part of this patient's care. Please refer to my attending physician's documentation for any further recommendations. The patient was seen, examined independently, agree with assessment and plan of my colleague Rene Rincon. The patient presented to the hospital due to heavy drinking at home where he drinks approximately 20 beers per day according to the family, the patient recently left the hospital with hyponatremia, he went to the doctor's office where his blood work showed sodium of 102 and was referred to us for an admission. Patient admitted to the ICU for further management. Initially the patient wants to sign AMA however he agreed finally to stay in the hospital. Appreciate input from nephrology, the patient started on 3% normal saline for 100 mL, and repeat the sodium later showed appropriate correction. The patient will go on restricted fluid intake. We will watch for withdrawal symptoms at the moment. The patient denies any history of alcohol withdrawal in the past. The patient is not reliable in obtaining his review of system. His physical exam today revealed stable vital signs, the patient is answering questions without altered mental status, however the patient is mildly confused. Lethargic, S1-S2 regular rhythm and rhythm, with distant breath sounds, abdomen is benign, no edema, no tremor. The rest of his labs were noted for hyponatremia, hypochloremia, and hypokalemia. Agree with assessment and plan as detailed by nephrology. We will continue to monitor in ICU.
[2018-07-09] MEDS ORDERED: GABAPENTIN 1200MG LOADING DOSE PO ONE (20:00)
[2018-07-09 20:28] VITALS: BP 125/75; PULSE 65; TEMP 37; O2SAT 91; Ht 182.9 cm; Wt 90.8 kg
[2018-07-09] MEDS: DESMOPRESSIN ACETATE INJ 2 MCG in SODIUM CHLORIDE 0.9% 50ML 50 ML IV SCH (20:46)
[2018-07-09 21:00] VITALS: BP 119/75; PULSE 67; O2SAT 95
[2018-07-09] MEDS ORDERED: LABETALOL HCL 200 MG TAB PO SCH (21:00)
[2018-07-09 21:55] LABS: CALCIUM 8.6 mg/dl (8.5-10.1); CREATININE 0.83 mg/dl (0.60-1.40); POTASSIUM 2.5 mmol/L (3.5-5.1)
[2018-07-09 22:00] VITALS: BP 96/61; PULSE 63; O2SAT 91
[2018-07-09 23:01] VITALS: BP 109/66; PULSE 63; O2SAT 94
--- NOTE | 2018-07-09 23:17 | EMERGENCY ROOM VISIT NOTE ---
History Report prepared by Jose: Alfredo Elaine Under the Supervision of: Dr. Shahab Steward M.D. First contact with patient: 15:08 Chief Complaint: ABNORMAL LABS Stated Complaint: ABNORMAL LAB WORK- CRITICAL PER PTS MD/ History of Present Illness The patient is a 63 year old male who presents to the Emergency Room with complaints of abnormal lab testing. The patient's family states the patient is alcoholic and drinks a lot of beer. The patient was recently admitted June 19 through June 26 for hyponitremia, cellulitis, alcohol abuse, and COPD. He was discharged home and was advised to eat regular meals which he has not been doing and to increase his salt intake. The family notes the patient doesn't eat often and has not really eaten very much since the discharge. Today he had lab testing done as follow up from his admission and his Sodium was 105 today so they brought him in. The family does note the patient stumbles and falls frequently, and did fall today but did not hit his head. The patient denies a fever, chills, headache, abdominal pain, nausea/vomiting/diarrhea, shortness of breath, or other complaints. He does admit to drinking a couple of beers today. He states he does want to stay in the hospital. Source of History: patient, family Onset: This morning Position: other (Electrolytes) Symptom Intensity: 105 Quality: other (Low-sodium) Timing: constant Associated Symptoms: No fevers, No chills, No headache, No chest pain, No SOB, No nausea, No vomiting, No abdominal pain, No diarrhea Review of Systems See HPI for pertinent positives & negatives. A total of 10 systems reviewed and were otherwise negative. Constitutional: + problem reported (low sodium level), No fever, No chills Abdomen: No pain, No nausea, No vomiting, No diarrhea Psychiatric: + substance abuse (alcohol) Past Medical & Surgical Medical Problems: (1) Alcohol dependence (2) Hepatic steatosis (3) HTN (hypertension) (4) Hyponatremia (5) Noncompliance with medications (6) Pancytopenia Social History Smoking Status: Current Every Day Smoker Alcohol Use: heavy Drug Use: marijuana Marital Status: Housing Status: lives with family Occupation Status: unemployed Current/Historical Medications Scheduled Aspirin (Aspirin Ec), 81 MG PO DAILY Famotidine (Pepcid), 20 MG PO BID Furosemide (Lasix), 40 MG PO QAM Hydrochlorothiazide (Hctz), 25 MG PO DAILY Ipratropium-Albuterol (Combivent Respimat), 1 PUFFS INH QID Labetalol (Normodyne), 200 MG PO BID Losartan Potassium (Cozaar), 100 MG PO DAILY Multivitamins/Minerals (Mvi With Minerals), 1 TAB PO QAM Pravastatin Sodium (Pravastatin Sodium), 10 MG PO DAILY Sildenafil Citrate (Pulmonary (Sildenafil Citrate), 40-60 MG PO UD Allergies Coded Allergies: No Known Allergies (Unverified , 11/29/13) Physical Exam Vital Signs Date Time Temp Pulse Resp B/P (MAP) Pulse Ox O2 Delivery O2 Flow Rate FiO2 07/09/18 17:05 73 22 133/93 96 Room Air 07/09/18 15:59 69 18 135/77 93 Room Air 07/09/18 15:26 73 07/09/18 15:02 36.9 74 18 143/75 95 Room Air Physical Exam Constitutional: Vital signs reviewed. Eyes: Pupils are equal round reactive to light. Conjunctiva are noninjected. ENT: Pharynx is clear without erythema or exudate. Mucous membranes are moist. Neck supple without meningeal signs. Respiratory: Clear to auscultation bilaterally. Breath sounds are equal bilaterally. Cardiovascular: Regular rate and rhythm. No rubs or gallops. GI: Soft, nondistended and nontender. Bowel sounds are present. Musculoskeletal: No peripheral edema. No lower extremity tenderness. Integumentary: No cyanosis. Neurological: The patient is awake, alert, and oriented x3; No tremor. Cranial nerves II-XII are intact. Motor is 5 out of 5 all extremities. Sensation is intact to light touch all extremities. Normal speech. No pronator drift. Psychiatric: Normal affect. Medical Decision & Procedures Laboratory Results 07/09/18 15:48 Red Blood Count 3.33, Mean Corpuscular Volume 87.1, Mean Corpuscular Hemoglobin 33.6, Mean Corpuscular Hemoglobin Concent 38.6, Mean Platelet Volume 9.1, Neutrophils (%) (Auto) 76.7, Lymphocytes (%) (Auto) 11.2, Monocytes (%) (Auto) 10.7, Eosinophils (%) (Auto) 0.8, Basophils (%) (Auto) 0.3, Neutrophils # (Auto ) 4.67, Lymphocytes # (Auto) 0.68, Monocytes # (Auto) 0.65, Eosinophils # (Auto ) 0.05, Basophils # (Auto) 0.02 Test 07/09/18 00:00 07/09/18 15:47 07/09/18 15:48 07/09/18 16:40 Urine Osmolality 69 mOms/kg (500-800) Prothrombin Time 10.9 SECONDS (9.0-12.0) Prothromb Time International Ratio 1.0 (0.9-1.1) Activated Partial Thromboplast Time 31.6 SECONDS (21.0-31.0) Partial Thromboplastin Ratio 1.2 Osmolality 211 mOsm/kg (280-300) White Blood Count 6.09 K/uL (4.8-10.8) Red Blood Count 3.33 M/uL (4.7-6.1) Hemoglobin 11.2 g/dL (14.0-18.0) Hematocrit 29.0 % (42-52) Mean Corpuscular Volume 87.1 fL (80-100) Mean Corpuscular Hemoglobin 33.6 pg (25-34) Mean Corpuscular Hemoglobin Concent 38.6 g/dl (32-36) Platelet Count 177 K/uL (130-400) Mean Platelet Volume 9.1 fL (7.4-10.4) Neutrophils (%) (Auto) 76.7 % Lymphocytes (%) (Auto) 11.2 % Monocytes (%) (Auto) 10.7 % Eosinophils (%) (Auto) 0.8 % Basophils (%) (Auto) 0.3 % Neutrophils # (Auto) 4.67 K/uL (1.4-6.5) Lymphocytes # (Auto) 0.68 K/uL (1.2-3.4) Monocytes # (Auto) 0.65 K/uL (0.11-0.59) Eosinophils # (Auto) 0.05 K/uL (0-0.5) Basophils # (Auto) 0.02 K/uL (0-0.2) RDW Standard Deviation 48.2 fL (36.4-46.3) RDW Coefficient of Variation 15.2 % (11.5-14.5) Immature Granulocyte % (Auto) 0.3 % Immature Granulocyte # (Auto) 0.02 K/uL (0.00-0.02) Basophilic Stippling OCCASIONAL [place] Bodies 1+ Magnesium Level 1.7 mg/dl (1.8-2.4) Total Bilirubin 1.2 mg/dl (0.2-1) Direct Bilirubin 0.4 mg/dl (0-0.2) Aspartate Amino Transf (AST/SGOT) 45 U/L (15-37) Alanine Aminotransferase (ALT/SGPT) 49 U/L (12-78) Alkaline Phosphatase 110 U/L (45-117) Total Protein 7.2 gm/dl (6.4-8.2) Albumin 3.5 gm/dl (3.4-5.0) Ethyl Alcohol mg/dL < 3.0 mg/dl (0-3) Urine Color YELLOW Urine Appearance CLEAR (CLEAR) Urine pH 7.5 (4.5-7.5) Urine Specific [place] 1.010 (1.000-1.030) Urine Protein NEG (NEG) Urine Glucose (UA) NEG (NEG) Urine Ketones 1+ (NEG) Urine Occult Blood NEG (NEG) Urine Nitrite NEG (NEG) Urine Bilirubin NEG (NEG) Urine Urobilinogen NEG (NEG) Urine Leukocyte Esterase NEG (NEG) Urine Random Sodium 50 mEq/L Date/Time Source Procedure Growth Status 07/09/18 00:00 Nasal MRSA DNA Surveillance Screen - Final Specimen Negative for MRSA by DNA Probe Complete Medications Administered Medications (Trade) Dose Ordered Sig/Archel Route Start Time Stop Time Status Last Admin Dose Admin Sodium Chloride 1,000 ml @ 250 mls/hr Q4H STAT IV 07/09/18 15:17 07/09/18 18:58 DC 07/09/18 15:17 250 MLS/HR Potassium Chloride 100 ml @ 100 mls/hr NOW STAT IV 07/09/18 16:48 07/09/18 17:47 DC 07/09/18 17:06 100 MLS/HR Magnesium Sulfate (Magnesium Sulfate 1gm / D5W) 2 gm NOW STAT IV 07/09/18 16:48 07/09/18 16:49 DC 07/09/18 17:07 2 GM ECG Per My Interpretation Indication: other (hypokalemia and hyponatremia) Rate (beats per minute): 71 Rhythm: normal sinus Findings: 1st degree AV block, prolonged QT, other (QTC 508) ED Course Recheck: 1650: Discussed test results with patient. He currently is not having any symptoms. Discussed admission with the patient and he agrees. Patient agrees with plan and all questions answered. Medical Decision This is a 63-year-old male who presents with abnormal labs. Differential diagnosis includes hyponatremia, SIADH, water intoxication, alcohol abuse, malnutrition, AKA. I did perform a limited focused review of portions of the patient's old chart on the electronic medical record. The patient was recently admitted on June 19 through June 26 for hyponitremia, cellulitis, alcohol abuse, and COPD. His initial sodium at admission was 110 and when he was discharged it was 133. He is currently Hypertensive in the ED. I did evaluate the patient as noted above. IV access was established. The patient was placed on a continuous phototypesetting equipment monitor. I did order and personally review the patient's 12-lead EKG as described above. He does have a prolonged QT. I did order and review the patient's blood work as noted in the electronic medical record. His sodium is 102. He has hypokalemia and hyponatremia as well. He was started on normal saline IV. He was also given IV KCl. He is also given IV magnesium. I did discuss the test results with the patient. I did recommend hospitalization. I did discuss the case with the hospitalist and bilingual patient support caseworker. He was admitted to the ICU. Medication Reconcilliation Current Medication List: was personally reviewed by me Blood Pressure Screening Patient's blood pressure: Elevated blood pressure Consults Consulting Physician: Dr. Dorys Mendes Returned Call: [phone] Agrees to admit the patient. Impression Primary Impression: Hypokalemia Additional Impressions: Hyponatremia Hypomagnesemia Anemia Alcohol abuse Critical Care I have personally spent 35 minutes of critical care time in the direct management of this patient. This includes bedside care, interpretation of diagnostic studies, and testing, discussion with consultants, patient, and family members, and other required patient management activities. This 35 minutes is in excess of all separately billable procedures. Scribe Attestation The scribe's documentation has been prepared under my direct and personally reviewed by me in its entirety. I confirm that the note above accurately reflects all work, treatment, procedures, and medical decision making performed by me. Departure Information Dispostion Being Evaluated By Hospitalist Alex Martin D.ONarendra (PCP) Patient Instructions My [facility] Problem Qualifiers Additional Impressions: Anemia Anemia type: unspecified type Qualified Codes: D64.9 - Anemia, unspecified
[2018-07-09 23:59] VITALS: O2SAT 92
[2018-07-10] VITALS (28 sets, daily range): BP systolic 83–146; BP diastolic 55–91; PULSE 55–82; TEMP 36.3–37; O2SAT 76–95
[2018-07-10 00:17] LABS: CALCIUM 8.1 mg/dl (8.5-10.1); CREATININE 0.8 mg/dl (0.60-1.40); POTASSIUM 2.6 mmol/L (3.5-5.1)
[2018-07-10] MEDS ORDERED: DEXTROSE 5% 500ML 500 ML IV SCH (00:30)
[2018-07-10] MEDS ORDERED: DEXTROSE 5% 1000ML 1,000 ML IV SCH (01:00)
[2018-07-10] MEDS: DESMOPRESSIN ACETATE INJ 2 MCG in SODIUM CHLORIDE 0.9% 50ML 50 ML IV SCH ×4 (02:17→19:22)
[2018-07-10 02:41] LABS: CALCIUM 7.8 mg/dl (8.5-10.1); CREATININE 0.97 mg/dl (0.60-1.40); POTASSIUM 2.8 mmol/L (3.5-5.1)
[2018-07-10] MEDS: POTASSIUM CHLR 10 MEQ / WTR 100 ML IV SCH ×3 (03:18→23:34)
[2018-07-10 05:09] LABS: BASO % 0.4 %; BASO ABS # 0.02 K/uL (0-0.2); EOS % 2.6 %; EOS ABS # 0.14 K/uL (0-0.5); HEMATOCRIT 27.5 % (42-52); HEMOGLOBIN 10.2 g/dL (14.0-18.0); IG# 0.02 K/uL (0.00-0.02); LYMPH ABS # 0.98 K/uL (1.2-3.4); MEAN CELL VOLUME 88.7 fL (80-100); MEAN CORPUSCULAR HEMOGLOBIN 32.9 pg (25-34); MEAN CORPUSCULAR HGB CONC 37.1 g/dl (32-36); MEAN PLATELET VOLUME 9.1 fL (7.4-10.4); MONO % 13.4 %; MONO ABS # 0.73 K/uL (0.11-0.59); NEUT % 65.2 %; NEUT ABS # 3.54 K/uL (1.4-6.5); PLATELET COUNT 151 K/uL (130-400); RED CELL DISTRIBUTION WIDTH CV 15.2 % (11.5-14.5); RED CELL DISTRIBUTION WIDTH SD 48.6 fL (36.4-46.3); WHITE BLOOD COUNT 5.43 K/uL (4.8-10.8)
[2018-07-10 05:36] LABS: CALCIUM 7.8 mg/dl (8.5-10.1); CREATININE 0.74 mg/dl (0.60-1.40); POTASSIUM 2.4 mmol/L (3.5-5.1)
[2018-07-10] MEDS ORDERED: GABAPENTIN 600MG Q6H DOSE PO SCH (06:00)
[2018-07-10] MEDS: MULTIVITAMIN TAB PO SCH (08:17)
[2018-07-10] MEDS: THIAMINE HCL 100 MG TAB PO SCH (08:17)
[2018-07-10] MEDS: ENOXAPARIN 40 MG/0.4 ML SYR SQ SCH (08:17)
[2018-07-10] MEDS: POT PHOSPHATE MONOBASIC W/ SOD TAB PO SCH ×4 (10:16→21:43)
[2018-07-10] MEDS: POTASSIUM CHLORIDE 20 MEQ TABCR PO SCH (10:16)
--- NOTE | 2018-07-10 11:18 | Nephrology Progress Note ---
Nephrology Progress Note Date of Service: Jul 10, 2018. Subjective Patient with alcohol abuse admitted with severe hyponatremia. Sodium rising nicely to 108 today. Patient feels well, would like to be discharged home Objective Date Time Temp Pulse Resp B/P (MAP) Pulse Ox O2 Delivery O2 Flow Rate FiO2 07/10/18 10:03 65 14 93/60 (71) 95 Room Air 07/10/18 09:10 91 Room Air 07/10/18 09:01 67 17 105/66 (79) 93 Room Air 07/10/18 08:00 72 23 113/74 (87) 93 Room Air 07/10/18 07:00 61 16 111/74 (79) 93 07/10/18 06:00 73 21 128/83 (87) 93 07/10/18 05:01 57 14 109/69 (79) 94 07/10/18 04:01 36.8 56 13 91/60 (66) 93 07/10/18 04:01 36.8 56 13 91/60 (70) 93 Room Air 07/10/18 03:01 61 12 110/56 (66) 95 07/10/18 03:01 61 12 110/56 (74) 95 Room Air 07/10/18 02:01 55 12 83/55 (63) 95 07/10/18 02:01 55 12 83/55 (64) 95 Room Air 07/10/18 02:00 55 11 95 07/10/18 01:30 58 13 94 07/10/18 01:01 59 13 99/59 (66) 94 07/10/18 01:01 59 13 99/59 (72) 94 Room Air 07/10/18 00:01 37.0 07/10/18 00:01 59 14 92/55 (67) 92 07/09/18 23:59 92 Room Air 07/09/18 23:01 63 13 109/66 (80) 94 07/09/18 22:00 63 14 96/61 (73) 91 Room Air 07/09/18 21:00 67 13 119/75 (90) 95 Room Air 07/09/18 20:28 37.0 65 18 125/75 91 Room Air 07/09/18 18:27 68 16 128/85 94 Room Air 07/09/18 17:05 73 22 133/93 96 Room Air 07/09/18 15:59 69 18 135/77 93 Room Air 07/09/18 15:26 73 07/09/18 15:02 36.9 74 18 143/75 95 Room Air Physical Exam: [id number], no acute distress Eyes-pupils equal and reactive to light ENT-throat is normal on inspection Neck-supple, no JVD Lungs-clear to auscultation bilaterally Heart-heart sounds 1 and 2 regular rate and rhythm no murmurs Abdomen-soft nondistended bowel sounds are present Extremities-no edema peripheral pulses are present Neuro-oriented 2, no focal neurological deficits Current Inpatient Medications Medications (Trade) Dose Ordered Sig/Rachel Route Start Time Stop Time Status Last Admin Dose Admin Miscellaneous Information (Icu Protocol For Hyperglycemia) 1 ea PRN PRN N/A 07/09/18 18:15 07/11/18 18:14 Thiamine HCl (Vitamin B-1 Tab) 100 mg QAM PO 07/10/18 09:00 08/09/18 08:59 07/10/18 08:17 100 MG Multivitamins (Multivitamin Tab) 1 tab QAM PO 07/10/18 09:00 08/09/18 08:59 07/10/18 08:17 1 TAB Desmopressin Acetate 2 mcg/ Sodium Chloride 50.5 ml @ 100 mls/hr Q6H IV 07/09/18 20:30 08/08/18 20:29 07/10/18 08:16 100 MLS/HR Enoxaparin Sodium (Lovenox Inj) 40 mg QAM SQ 07/10/18 09:00 08/09/18 08:59 07/10/18 08:17 40 MG Potassium Chloride (Klor-Con Tab) 40 meq QAM PO 07/10/18 09:30 08/09/18 09:29 07/10/18 10:16 40 MEQ Potassium/ Phosphorus/Sodium (Phospha 250 Neutral 155-852-130 Mg) 2 tab QID PO 07/10/18 09:30 08/09/18 09:29 07/10/18 10:16 2 TAB Last 24 Hours Test 07/09/18 15:47 07/09/18 15:48 07/09/18 16:40 07/09/18 19:09 Prothrombin Time 10.9 SECONDS Prothromb Time International Ratio 1.0 Activated Partial Thromboplast Time 31.6 SECONDS Partial Thromboplastin Ratio 1.2 Osmolality 211 mOsm/kg White Blood Count 6.09 K/uL Red Blood Count 3.33 M/uL Hemoglobin 11.2 g/dL Hematocrit 29.0 % Mean Corpuscular Volume 87.1 fL Mean Corpuscular Hemoglobin 33.6 pg Mean Corpuscular Hemoglobin Concent 38.6 g/dl Platelet Count 177 K/uL Mean Platelet Volume 9.1 fL Neutrophils (%) (Auto) 76.7 % Lymphocytes (%) (Auto) 11.2 % Monocytes (%) (Auto) 10.7 % Eosinophils (%) (Auto) 0.8 % Basophils (%) (Auto) 0.3 % Neutrophils # (Auto) 4.67 K/uL Lymphocytes # (Auto) 0.68 K/uL Monocytes # (Auto) 0.65 K/uL Eosinophils # (Auto) 0.05 K/uL Basophils # (Auto) 0.02 K/uL RDW Standard Deviation 48.2 fL RDW Coefficient of Variation 15.2 % Immature Granulocyte % (Auto) 0.3 % Immature Granulocyte # (Auto) 0.02 K/uL Basophilic Stippling OCCASIONAL [place] Bodies 1+ Sodium Level 102 mmol/L 107 mmol/L Potassium Level 2.3 mmol/L Chloride Level 62 mmol/L Carbon Dioxide Level 29 mmol/L Anion Gap 11.0 mmol/L Blood Urea Nitrogen 7 mg/dl Creatinine 0.83 mg/dl Estimated GFR () 107.0 Estimated GFR (Non- 92.3 BUN/Creatinine Ratio 7.8 Random Glucose 107 mg/dl Calcium Level 8.8 mg/dl Magnesium Level 1.7 mg/dl Total Bilirubin 1.2 mg/dl Direct Bilirubin 0.4 mg/dl Aspartate Amino Transf (AST/SGOT) 45 U/L Alanine Aminotransferase (ALT/SGPT) 49 U/L Alkaline Phosphatase 110 U/L Total Protein 7.2 gm/dl Albumin 3.5 gm/dl Ethyl Alcohol mg/dL < 3.0 mg/dl Urine Color YELLOW Urine Appearance CLEAR Urine pH 7.5 Urine Specific [place] 1.010 Urine Protein NEG Urine Glucose (UA) NEG Urine Ketones 1+ Urine Occult Blood NEG Urine Nitrite NEG Urine Bilirubin NEG Urine Urobilinogen NEG Urine Leukocyte Esterase NEG Urine Random Sodium 50 mEq/L Test 07/09/18 21:22 07/09/18 23:36 07/09/18 23:37 07/10/18 02:05 Sodium Level 109 mmol/L 111 mmol/L 108 mmol/L Potassium Level 2.5 mmol/L 2.6 mmol/L 2.8 mmol/L Chloride Level 69 mmol/L 69 mmol/L 69 mmol/L Carbon Dioxide Level 31 mmol/L 30 mmol/L 31 mmol/L Anion Gap 8.0 mmol/L 12.0 mmol/L 7.0 mmol/L Blood Urea Nitrogen 6 mg/dl 6 mg/dl 6 mg/dl Creatinine 0.83 mg/dl 0.80 mg/dl 0.97 mg/dl Est Creatinine Clear Calc Drug Dose 106.2 ml/min 110.2 ml/min 90.9 ml/min Estimated GFR () 107.0 108.7 94.6 Estimated GFR (Non- 92.3 93.7 81.6 BUN/Creatinine Ratio 7.1 8.0 6.3 Random Glucose 95 mg/dl 91 mg/dl 104 mg/dl Calcium Level 8.6 mg/dl 8.1 mg/dl 7.8 mg/dl Magnesium Level 2.4 mg/dl Bedside Glucose 112 mg/dl Test 07/10/18 04:44 07/10/18 05:59 White Blood Count 5.43 K/uL Red Blood Count 3.10 M/uL Hemoglobin 10.2 g/dL Hematocrit 27.5 % Mean Corpuscular Volume 88.7 fL Mean Corpuscular Hemoglobin 32.9 pg Mean Corpuscular Hemoglobin Concent 37.1 g/dl Platelet Count 151 K/uL Mean Platelet Volume 9.1 fL Neutrophils (%) (Auto) 65.2 % Lymphocytes (%) (Auto) 18.0 % Monocytes (%) (Auto) 13.4 % Eosinophils (%) (Auto) 2.6 % Basophils (%) (Auto) 0.4 % Neutrophils # (Auto) 3.54 K/uL Lymphocytes # (Auto) 0.98 K/uL Monocytes # (Auto) 0.73 K/uL Eosinophils # (Auto) 0.14 K/uL Basophils # (Auto) 0.02 K/uL RDW Standard Deviation 48.6 fL RDW Coefficient of Variation 15.2 % Immature Granulocyte % (Auto) 0.4 % Immature Granulocyte # (Auto) 0.02 K/uL Sodium Level 108 mmol/L Potassium Level 2.4 mmol/L Chloride Level 68 mmol/L Carbon Dioxide Level 30 mmol/L Anion Gap 9.0 mmol/L Blood Urea Nitrogen 7 mg/dl Creatinine 0.74 mg/dl Est Creatinine Clear Calc Drug Dose 119.2 ml/min Estimated GFR () 112.2 Estimated GFR (Non- 96.8 BUN/Creatinine Ratio 9.4 Random Glucose 90 mg/dl Calcium Level 7.8 mg/dl Phosphorus Level 2.0 mg/dl Magnesium Level 2.2 mg/dl Bedside Glucose 113 mg/dl Assessment & Plan This is a 63-year-old male with history of alcohol dependency, chronic hyponatremia, hypertension and hepatic steatosis who is being evaluated for acute on chronic hyponatremia 1. Severe hyponatremia: Patient has acute on chronic hyponatremia. His serum Osmolarity was 211 which makes it a true hypoosmolar hyponatremia. This is likely in setting of chronic alcohol ingestion. Sodium this morning of 108. Sodium transiently increased to 111 but came down. Target sodium is 108 by 5 PM today and 114 by 5 PM tomorrow Continue DDAVP 2 mcg IV every 6 hours to shut off the urine output as he is at risk of overcorrection. If sodium is still at 108, would resume hypertonic saline [3%] at 40 mL/hr at 5pm this evening to bring his sodium up to 114 x 5 p.m. tomorrow. If the sodium goes above the target, give D5 water at 200 mL/h and monitor sodium. Monitor sodium every 2 hourly. If patient is allowed to take orally, restrict p.o. intake to 1 L in 24 hours. 2. Hypertension: His blood pressure is well controlled. Would hold any antihypertensives at the moment. 3. Hypokalemia: Recommend a total of 80 mEq of potassium chloride today. Monitor potassium and replete as needed with cautioned that this can also increase his sodium. 4. Hypomagnesemia: Patient received 2 g of magnesium sulfate yesterday. Monitor and replace as needed Thank you for the courtesy of the consultation renal will follow with you
--- NOTE | 2018-07-10 11:35 | Critical Care Progress Note ---
Critical Care Progress Note Date of Service Jul 10, 2018. Attending Dr. Treviño Subjective The patient appeared lethargic overall, but he answer the question, he denies any symptoms including pain, shortness of breath, tremor, he realizes he is at the hospital, he did not have any dizziness, near syncopal episode, he denies history of alcohol withdrawal and again. No shortness of breath, no cough or sputum production. Objective Physical exam on 07/10/2018 showed vital signs are stable, S1-S2 regular rate and rhythm, lungs are clear, abdomen is soft and benign, no edema, nicotine staining on his mustache noted, neurologically he has no tremor and he is nonfocal. Most recent sodium was 108. BUN/creatinine has been stable. The rest of his labs are within acceptable limits except for his electrolytes. Assessment & Plan 1. Severe acute on chronic hyponatremia, related to Potomania from alcohol abuse. 2. Patient is active smoker with history of multiple falls and refracture. 3. Possible COPD. 4. The patient denies any history of alcohol withdrawal in the past. 5. Fatty liver due to alcohol abuse. Plan: 1. Continue to follow sodium throughout the day. 2. Replace potassium. 3. Fluid restriction. 4. Discontinue gabapentin in the face of severe hyponatremia. 5. I will hold off on the Ativan as the patient has not had any evidence of withdrawal and never been in DT in the past. 6. If the patient goes into DVT, I will start him on phenobarbital. 7. Phosphorus was replaced. 8. Patient was on labetalol at home but his blood pressure has been borderline and I would hold it off. 9. DDAVP and 3% saline per Dr. Batista, appreciate his input. 10. DVT prophylaxis and GI prophylaxis. 11. Keep the patient in the ICU. Discussed with the staff on rounds and details, discussed with multiple principles, appreciate all inputs. CCT was 45 minutes. Data Medications: Current Inpatient Medications Medications (Trade) Dose Ordered Sig/Rachel Route Start Time Stop Time Status Last Admin Dose Admin Miscellaneous Information (Icu Protocol For Hyperglycemia) 1 ea PRN PRN N/A 07/09/18 18:15 07/11/18 18:14 Thiamine HCl (Vitamin B-1 Tab) 100 mg QAM PO 07/10/18 09:00 08/09/18 08:59 07/10/18 08:17 100 MG Multivitamins (Multivitamin Tab) 1 tab QAM PO 07/10/18 09:00 08/09/18 08:59 07/10/18 08:17 1 TAB Desmopressin Acetate 2 mcg/ Sodium Chloride 50.5 ml @ 100 mls/hr Q6H IV 07/09/18 20:30 08/08/18 20:29 07/10/18 08:16 100 MLS/HR Enoxaparin Sodium (Lovenox Inj) 40 mg QAM SQ 07/10/18 09:00 08/09/18 08:59 07/10/18 08:17 40 MG Potassium Chloride (Klor-Con Tab) 40 meq QAM PO 07/10/18 09:30 08/09/18 09:29 07/10/18 10:16 40 MEQ Potassium/ Phosphorus/Sodium (Phospha 250 Neutral 155-852-130 Mg) 2 tab QID PO 07/10/18 09:30 08/09/18 09:29 07/10/18 10:16 2 TAB Vital Signs: Date Time Temp Pulse Resp B/P (MAP) Pulse Ox O2 Delivery O2 Flow Rate FiO2 07/10/18 10:03 65 14 93/60 (71) 95 Room Air 07/10/18 09:10 91 Room Air 07/10/18 09:01 67 17 105/66 (79) 93 Room Air 07/10/18 08:00 72 23 113/74 (87) 93 Room Air 07/10/18 07:00 61 16 111/74 (79) 93 07/10/18 06:00 73 21 128/83 (87) 93 07/10/18 05:01 57 14 109/69 (79) 94 07/10/18 04:01 36.8 56 13 91/60 (66) 93 07/10/18 04:01 36.8 56 13 91/60 (70) 93 Room Air 07/10/18 03:01 61 12 110/56 (66) 95 07/10/18 03:01 61 12 110/56 (74) 95 Room Air 07/10/18 02:01 55 12 83/55 (63) 95 07/10/18 02:01 55 12 83/55 (64) 95 Room Air 07/10/18 02:00 55 11 95 07/10/18 01:30 58 13 94 07/10/18 01:01 59 13 99/59 (66) 94 07/10/18 01:01 59 13 99/59 (72) 94 Room Air 07/10/18 00:01 37.0 07/10/18 00:01 59 14 92/55 (67) 92 07/09/18 23:59 92 Room Air 07/09/18 23:01 63 13 109/66 (80) 94 07/09/18 22:00 63 14 96/61 (73) 91 Room Air 07/09/18 21:00 67 13 119/75 (90) 95 Room Air 07/09/18 20:28 37.0 65 18 125/75 91 Room Air 07/09/18 18:27 68 16 128/85 94 Room Air 07/09/18 17:05 73 22 133/93 96 Room Air 07/09/18 15:59 69 18 135/77 93 Room Air 07/09/18 15:26 73 07/09/18 15:02 36.9 74 18 143/75 95 Room Air Laboratory Results: Last 24 Hours Test 07/09/18 15:47 07/09/18 15:48 07/09/18 16:40 07/09/18 19:09 Prothrombin Time 10.9 SECONDS Prothromb Time International Ratio 1.0 Activated Partial Thromboplast Time 31.6 SECONDS Partial Thromboplastin Ratio 1.2 Osmolality 211 mOsm/kg White Blood Count 6.09 K/uL Red Blood Count 3.33 M/uL Hemoglobin 11.2 g/dL Hematocrit 29.0 % Mean Corpuscular Volume 87.1 fL Mean Corpuscular Hemoglobin 33.6 pg Mean Corpuscular Hemoglobin Concent 38.6 g/dl Platelet Count 177 K/uL Mean Platelet Volume 9.1 fL Neutrophils (%) (Auto) 76.7 % Lymphocytes (%) (Auto) 11.2 % Monocytes (%) (Auto) 10.7 % Eosinophils (%) (Auto) 0.8 % Basophils (%) (Auto) 0.3 % Neutrophils # (Auto) 4.67 K/uL Lymphocytes # (Auto) 0.68 K/uL Monocytes # (Auto) 0.65 K/uL Eosinophils # (Auto) 0.05 K/uL Basophils # (Auto) 0.02 K/uL RDW Standard Deviation 48.2 fL RDW Coefficient of Variation 15.2 % Immature Granulocyte % (Auto) 0.3 % Immature Granulocyte # (Auto) 0.02 K/uL Basophilic Stippling OCCASIONAL [place] Bodies 1+ Sodium Level 102 mmol/L 107 mmol/L Potassium Level 2.3 mmol/L Chloride Level 62 mmol/L Carbon Dioxide Level 29 mmol/L Anion Gap 11.0 mmol/L Blood Urea Nitrogen 7 mg/dl Creatinine 0.83 mg/dl Estimated GFR () 107.0 Estimated GFR (Non- 92.3 BUN/Creatinine Ratio 7.8 Random Glucose 107 mg/dl Calcium Level 8.8 mg/dl Magnesium Level 1.7 mg/dl Total Bilirubin 1.2 mg/dl Direct Bilirubin 0.4 mg/dl Aspartate Amino Transf (AST/SGOT) 45 U/L Alanine Aminotransferase (ALT/SGPT) 49 U/L Alkaline Phosphatase 110 U/L Total Protein 7.2 gm/dl Albumin 3.5 gm/dl Ethyl Alcohol mg/dL < 3.0 mg/dl Urine Color YELLOW Urine Appearance CLEAR Urine pH 7.5 Urine Specific [place] 1.010 Urine Protein NEG Urine Glucose (UA) NEG Urine Ketones 1+ Urine Occult Blood NEG Urine Nitrite NEG Urine Bilirubin NEG Urine Urobilinogen NEG Urine Leukocyte Esterase NEG Urine Random Sodium 50 mEq/L Test 07/09/18 21:22 07/09/18 23:36 07/09/18 23:37 07/10/18 02:05 Sodium Level 109 mmol/L 111 mmol/L 108 mmol/L Potassium Level 2.5 mmol/L 2.6 mmol/L 2.8 mmol/L Chloride Level 69 mmol/L 69 mmol/L 69 mmol/L Carbon Dioxide Level 31 mmol/L 30 mmol/L 31 mmol/L Anion Gap 8.0 mmol/L 12.0 mmol/L 7.0 mmol/L Blood Urea Nitrogen 6 mg/dl 6 mg/dl 6 mg/dl Creatinine 0.83 mg/dl 0.80 mg/dl 0.97 mg/dl Est Creatinine Clear Calc Drug Dose 106.2 ml/min 110.2 ml/min 90.9 ml/min Estimated GFR () 107.0 108.7 94.6 Estimated GFR (Non- 92.3 93.7 81.6 BUN/Creatinine Ratio 7.1 8.0 6.3 Random Glucose 95 mg/dl 91 mg/dl 104 mg/dl Calcium Level 8.6 mg/dl 8.1 mg/dl 7.8 mg/dl Magnesium Level 2.4 mg/dl Bedside Glucose 112 mg/dl Test 07/10/18 04:44 07/10/18 05:59 White Blood Count 5.43 K/uL Red Blood Count 3.10 M/uL Hemoglobin 10.2 g/dL Hematocrit 27.5 % Mean Corpuscular Volume 88.7 fL Mean Corpuscular Hemoglobin 32.9 pg Mean Corpuscular Hemoglobin Concent 37.1 g/dl Platelet Count 151 K/uL Mean Platelet Volume 9.1 fL Neutrophils (%) (Auto) 65.2 % Lymphocytes (%) (Auto) 18.0 % Monocytes (%) (Auto) 13.4 % Eosinophils (%) (Auto) 2.6 % Basophils (%) (Auto) 0.4 % Neutrophils # (Auto) 3.54 K/uL Lymphocytes # (Auto) 0.98 K/uL Monocytes # (Auto) 0.73 K/uL Eosinophils # (Auto) 0.14 K/uL Basophils # (Auto) 0.02 K/uL RDW Standard Deviation 48.6 fL RDW Coefficient of Variation 15.2 % Immature Granulocyte % (Auto) 0.4 % Immature Granulocyte # (Auto) 0.02 K/uL Sodium Level 108 mmol/L Potassium Level 2.4 mmol/L Chloride Level 68 mmol/L Carbon Dioxide Level 30 mmol/L Anion Gap 9.0 mmol/L Blood Urea Nitrogen 7 mg/dl Creatinine 0.74 mg/dl Est Creatinine Clear Calc Drug Dose 119.2 ml/min Estimated GFR () 112.2 Estimated GFR (Non- 96.8 BUN/Creatinine Ratio 9.4 Random Glucose 90 mg/dl Calcium Level 7.8 mg/dl Phosphorus Level 2.0 mg/dl Magnesium Level 2.2 mg/dl Bedside Glucose 113 mg/dl
[2018-07-10 15:23] LABS: CALCIUM 7.7 mg/dl (8.5-10.1); CREATININE 0.97 mg/dl (0.60-1.40); POTASSIUM 2.7 mmol/L (3.5-5.1)
--- NOTE | 2018-07-10 16:22 | Progress Note ---
Medicine Progress Note Date & Time of Visit: Jul 10, 2018 at 16:17. Subjective Seen resting in bed, comfortable Alert, oriented Denies confusion, headache, dizziness, abdominal pain Tremors, hallucinations, anxiety denies any symptoms Objective Last 8 Hrs Date Time Temp Pulse Resp B/P (MAP) Pulse Ox O2 Delivery O2 Flow Rate FiO2 07/10/18 13:00 75 20 117/72 (87) 94 Room Air 07/10/18 12:02 36.5 69 18 114/90 (98) 94 Room Air 07/10/18 11:00 61 14 100/60 (73) 90 Room Air 07/10/18 10:03 65 14 93/60 (71) 95 Room Air 07/10/18 09:10 91 Room Air 07/10/18 09:01 67 17 105/66 (79) 93 Room Air Physical Exam: General-weighted 3, distress, speaking his use Eyes- anicteric ENT- oropharynx clear Neck- supple, no JVD Lungs- clear breath sounds bilaterally no rales wheezes Heart- regular rhythm; no murmur, normal rate Abdomen- normal bowel sounds, soft, nontender Extremities- no pretibial edema, no calf tenderness Neuro- alert, oriented x 3; no gross focal motor or sensory deficits Skin- warm & dry Laboratory Results: Last 24 Hours Test 07/09/18 16:40 07/09/18 19:09 07/09/18 21:22 07/09/18 23:36 Urine Color YELLOW Urine Appearance CLEAR Urine pH 7.5 Urine Specific [place] 1.010 Urine Protein NEG Urine Glucose (UA) NEG Urine Ketones 1+ Urine Occult Blood NEG Urine Nitrite NEG Urine Bilirubin NEG Urine Urobilinogen NEG Urine Leukocyte Esterase NEG Urine Random Sodium 50 mEq/L Sodium Level 107 mmol/L 109 mmol/L 111 mmol/L Potassium Level 2.5 mmol/L 2.6 mmol/L Chloride Level 69 mmol/L 69 mmol/L Carbon Dioxide Level 31 mmol/L 30 mmol/L Anion Gap 8.0 mmol/L 12.0 mmol/L Blood Urea Nitrogen 6 mg/dl 6 mg/dl Creatinine 0.83 mg/dl 0.80 mg/dl Est Creatinine Clear Calc Drug Dose 106.2 ml/min 110.2 ml/min Estimated GFR () 107.0 108.7 Estimated GFR (Non- 92.3 93.7 BUN/Creatinine Ratio 7.1 8.0 Random Glucose 95 mg/dl 91 mg/dl Calcium Level 8.6 mg/dl 8.1 mg/dl Magnesium Level 2.4 mg/dl Test 07/09/18 23:37 07/10/18 02:05 07/10/18 04:44 07/10/18 05:59 Bedside Glucose 112 mg/dl 113 mg/dl Sodium Level 108 mmol/L 108 mmol/L Potassium Level 2.8 mmol/L 2.4 mmol/L Chloride Level 69 mmol/L 68 mmol/L Carbon Dioxide Level 31 mmol/L 30 mmol/L Anion Gap 7.0 mmol/L 9.0 mmol/L Blood Urea Nitrogen 6 mg/dl 7 mg/dl Creatinine 0.97 mg/dl 0.74 mg/dl Est Creatinine Clear Calc Drug Dose 90.9 ml/min 119.2 ml/min Estimated GFR () 94.6 112.2 Estimated GFR (Non- 81.6 96.8 BUN/Creatinine Ratio 6.3 9.4 Random Glucose 104 mg/dl 90 mg/dl Calcium Level 7.8 mg/dl 7.8 mg/dl White Blood Count 5.43 K/uL Red Blood Count 3.10 M/uL Hemoglobin 10.2 g/dL Hematocrit 27.5 % Mean Corpuscular Volume 88.7 fL Mean Corpuscular Hemoglobin 32.9 pg Mean Corpuscular Hemoglobin Concent 37.1 g/dl Platelet Count 151 K/uL Mean Platelet Volume 9.1 fL Neutrophils (%) (Auto) 65.2 % Lymphocytes (%) (Auto) 18.0 % Monocytes (%) (Auto) 13.4 % Eosinophils (%) (Auto) 2.6 % Basophils (%) (Auto) 0.4 % Neutrophils # (Auto) 3.54 K/uL Lymphocytes # (Auto) 0.98 K/uL Monocytes # (Auto) 0.73 K/uL Eosinophils # (Auto) 0.14 K/uL Basophils # (Auto) 0.02 K/uL RDW Standard Deviation 48.6 fL RDW Coefficient of Variation 15.2 % Immature Granulocyte % (Auto) 0.4 % Immature Granulocyte # (Auto) 0.02 K/uL Phosphorus Level 2.0 mg/dl Magnesium Level 2.2 mg/dl Test 07/10/18 11:24 07/10/18 14:45 Bedside Glucose 123 mg/dl Sodium Level 109 mmol/L Potassium Level 2.7 mmol/L Chloride Level 70 mmol/L Carbon Dioxide Level 30 mmol/L Anion Gap 9.0 mmol/L Blood Urea Nitrogen 9 mg/dl Creatinine 0.97 mg/dl Est Creatinine Clear Calc Drug Dose 90.8 ml/min Estimated GFR () 94.6 Estimated GFR (Non- 81.6 BUN/Creatinine Ratio 9.0 Random Glucose 102 mg/dl Calcium Level 7.7 mg/dl Assessment & Plan Resolved Continue ICU monitoring Patient is a 63yo M with a PMH of alcohol dependence, chronic hyponatremia, HTN and COPD who was directed to present to ED due to severe hyponatremia on lab work ordered by PCP. Severe hyponatremia -Serum sodium of 102 on admission -In setting of alcohol abuse--30 beers daily, per -Also taking medications (including lasix, hctz) incorrectly at home) -Mildly symptomatic with weakness, no reported falls at home -Hypotonic hyponatremia with a serum osm of 211 -Consulted nephrology -Hypertonic saline ordered Sodium improved from 102 now 109 -Appreciate further recommendations -Consulted photo technician Continue ICU monitoring -Seizure precautions Hypokalemia Given IV and p.o. potassium Monitor Hypomagnesemia Resolved Alcohol dependence -Last drink was earlier today -Alcohol level <3 mg/dl -Thiamine IV ordered now -Withdrawal protocol ordered Hypertension -Normotensive -Hold home BP medications -Add IV antihypertensives PRN if needed GERD -Pepcid COPD -Stable -Continue home inhalers DVT Ppx: SCDs Code status: FULL, as per discussion with patient at bedside PCP: Rakesh Zhou Dispo: Admitted to ICU. Discharge planning ordered. DVT prophylaxis Lovenox Current Inpatient Medications: Current Inpatient Medications Medications (Trade) Dose Ordered Sig/Rachel Route Start Time Stop Time Status Last Admin Dose Admin Miscellaneous Information (Icu Protocol For Hyperglycemia) 1 ea PRN PRN N/A 07/09/18 18:15 07/11/18 18:14 Thiamine HCl (Vitamin B-1 Tab) 100 mg QAM PO 07/10/18 09:00 08/09/18 08:59 07/10/18 08:17 100 MG Multivitamins (Multivitamin Tab) 1 tab QAM PO 07/10/18 09:00 08/09/18 08:59 07/10/18 08:17 1 TAB Desmopressin Acetate 2 mcg/ Sodium Chloride 50.5 ml @ 100 mls/hr Q6H IV 07/09/18 20:30 08/08/18 20:29 07/10/18 15:37 100 MLS/HR Enoxaparin Sodium (Lovenox Inj) 40 mg QAM SQ 07/10/18 09:00 08/09/18 08:59 07/10/18 08:17 40 MG Potassium Chloride (Klor-Con Tab) 40 meq QAM PO 07/10/18 09:30 08/09/18 09:29 07/10/18 10:16 40 MEQ Potassium/ Phosphorus/Sodium (Phospha 250 Neutral 155-852-130 Mg) 2 tab QID PO 07/10/18 09:30 08/09/18 09:29 07/10/18 13:24 2 TAB
[2018-07-10] MEDS ORDERED: POTASSIUM CHLORIDE 20 MEQ TABCR PO ONE (19:00)
[2018-07-10] MEDS ORDERED: GABAPENTIN 600MG Q8H DOSE PO SCH (22:00)
[2018-07-10 22:26] LABS: CALCIUM 7.6 mg/dl (8.5-10.1); CREATININE 0.86 mg/dl (0.60-1.40); POTASSIUM 2.9 mmol/L (3.5-5.1)
[2018-07-11] VITALS (17 sets, daily range): BP systolic 128–161; BP diastolic 72–99; PULSE 62–81; TEMP 36.7–37.1; O2SAT 89–100
[2018-07-11] MEDS: DESMOPRESSIN ACETATE INJ 2 MCG in SODIUM CHLORIDE 0.9% 50ML 50 ML IV SCH ×2 (02:53→08:30)
[2018-07-11] MEDS: POTASSIUM CHLR 10 MEQ / WTR 100 ML IV SCH (02:53)
[2018-07-11 06:02] LABS: BASO % 0.4 %; BASO ABS # 0.02 K/uL (0-0.2); EOS % 2.8 %; EOS ABS # 0.15 K/uL (0-0.5); HEMATOCRIT 27.7 % (42-52); HEMOGLOBIN 10.4 g/dL (14.0-18.0); IG# 0.02 K/uL (0.00-0.02); LYMPH % 20.3 %; LYMPH ABS # 1.07 K/uL (1.2-3.4); MEAN CELL VOLUME 89.9 fL (80-100); MEAN CORPUSCULAR HEMOGLOBIN 33.8 pg (25-34); MEAN CORPUSCULAR HGB CONC 37.5 g/dl (32-36); MEAN PLATELET VOLUME 8.4 fL (7.4-10.4); MONO % 13.5 %; MONO ABS # 0.71 K/uL (0.11-0.59); NEUT % 62.6 %; PLATELET COUNT 132 K/uL (130-400); RED CELL DISTRIBUTION WIDTH CV 14.9 % (11.5-14.5); RED CELL DISTRIBUTION WIDTH SD 48.5 fL (36.4-46.3); WHITE BLOOD COUNT 5.27 K/uL (4.8-10.8)
[2018-07-11 06:39] LABS: CALCIUM 7.5 mg/dl (8.5-10.1); CREATININE 0.75 mg/dl (0.60-1.40); PHOSPHORUS 1.7 mg/dl (2.5-4.9)
[2018-07-11] MEDS ORDERED: POTASSIUM CHLORIDE 10 MEQ TABCR PO STA (09:07)
--- NOTE | 2018-07-11 09:26 | Nephrology Progress Note ---
Nephrology Progress Note Date of Service: Jul 11, 2018. Subjective Patient with alcohol abuse admitted with severe hyponatremia. Sodium rising nicely to 111 today. Patient feels well, no confusion Objective Date Time Temp Pulse Resp B/P (MAP) Pulse Ox O2 Delivery O2 Flow Rate FiO2 07/11/18 06:01 62 18 149/90 (109) 93 Room Air 07/11/18 05:01 67 15 143/93 (110) 94 Room Air 07/11/18 04:01 36.7 64 17 146/91 (109) 92 Room Air 07/11/18 03:01 64 16 132/84 (100) 89 Room Air 07/11/18 02:01 68 19 145/92 (109) 95 Room Air 07/11/18 01:01 74 15 143/92 (109) 95 Room Air 07/11/18 00:01 36.7 66 18 134/82 (99) 91 Room Air 07/10/18 23:01 68 18 144/91 (108) 93 Room Air 07/10/18 22:01 73 19 146/86 (106) 93 Room Air 07/10/18 21:01 77 20 130/79 (96) 93 Room Air 07/10/18 20:26 95 Room Air 07/10/18 20:01 36.8 68 18 130/83 (99) 95 Room Air 07/10/18 19:05 73 14 131/76 (94) 94 Room Air 07/10/18 17:01 82 16 143/81 (101) 94 Room Air 07/10/18 16:41 95 Room Air 07/10/18 16:01 36.7 66 17 108/64 (79) 93 Room Air 07/10/18 15:01 65 11 116/80 (92) 93 Room Air 07/10/18 14:01 70 13 130/72 (91) 95 Room Air 07/10/18 13:00 75 20 117/72 (87) 94 Room Air 07/10/18 12:02 36.5 69 18 114/90 (98) 94 Room Air 07/10/18 11:00 61 14 100/60 (73) 90 Room Air 07/10/18 10:03 65 14 93/60 (71) 95 Room Air Physical Exam: [id number], no acute distress Eyes-pupils equal and reactive to light ENT-throat is normal on inspection Neck-supple, no JVD Lungs-clear to auscultation bilaterally Heart-heart sounds 1 and 2 regular rate and rhythm no murmurs Abdomen-soft nondistended bowel sounds are present Extremities-no edema peripheral pulses are present Neuro-oriented 3, no focal neurological deficits Current Inpatient Medications Medications (Trade) Dose Ordered Sig/Rachel Route Start Time Stop Time Status Last Admin Dose Admin Miscellaneous Information (Icu Protocol For Hyperglycemia) 1 ea PRN PRN N/A 07/09/18 18:15 07/11/18 18:14 Thiamine HCl (Vitamin B-1 Tab) 100 mg QAM PO 07/10/18 09:00 08/09/18 08:59 07/10/18 08:17 100 MG Multivitamins (Multivitamin Tab) 1 tab QAM PO 07/10/18 09:00 08/09/18 08:59 07/10/18 08:17 1 TAB Enoxaparin Sodium (Lovenox Inj) 40 mg QAM SQ 07/10/18 09:00 08/09/18 08:59 07/10/18 08:17 40 MG Potassium Chloride (Klor-Con Tab) 40 meq QAM PO 07/10/18 09:30 08/09/18 09:29 07/10/18 10:16 40 MEQ Potassium/ Phosphorus/Sodium (Phospha 250 Neutral 155-852-130 Mg) 2 tab QID PO 07/10/18 09:30 08/09/18 09:29 07/10/18 21:43 2 TAB Sodium Chloride (Sodium Chloride Tab) 2 gm ONE PO 07/11/18 09:00 08/10/18 08:59 UNV Desmopressin Acetate 1 mcg/ Sodium Chloride 50.25 ml @ 100 mls/hr Q6H IV 07/11/18 14:30 08/08/18 20:29 UNV Potassium Chloride (Klor-Con M10) 40 meq NOW STAT PO 07/11/18 09:07 07/11/18 09:08 UNV Labetalol HCl (Normodyne Tab) 200 mg BID PO 07/11/18 21:00 08/10/18 20:59 UNV Last 24 Hours Test 07/10/18 11:24 07/10/18 14:45 07/10/18 16:17 07/10/18 21:57 Bedside Glucose 123 mg/dl 120 mg/dl Sodium Level 109 mmol/L 110 mmol/L Potassium Level 2.7 mmol/L 2.9 mmol/L Chloride Level 70 mmol/L 73 mmol/L Carbon Dioxide Level 30 mmol/L 30 mmol/L Anion Gap 9.0 mmol/L 7.0 mmol/L Blood Urea Nitrogen 9 mg/dl 11 mg/dl Creatinine 0.97 mg/dl 0.86 mg/dl Est Creatinine Clear Calc Drug Dose 90.8 ml/min 102.4 ml/min Estimated GFR () 94.6 105.5 Estimated GFR (Non- 81.6 91.0 BUN/Creatinine Ratio 9.0 13.0 Random Glucose 102 mg/dl 97 mg/dl Calcium Level 7.7 mg/dl 7.6 mg/dl Test 07/11/18 05:52 White Blood Count 5.27 K/uL Red Blood Count 3.08 M/uL Hemoglobin 10.4 g/dL Hematocrit 27.7 % Mean Corpuscular Volume 89.9 fL Mean Corpuscular Hemoglobin 33.8 pg Mean Corpuscular Hemoglobin Concent 37.5 g/dl Platelet Count 132 K/uL Mean Platelet Volume 8.4 fL Neutrophils (%) (Auto) 62.6 % Lymphocytes (%) (Auto) 20.3 % Monocytes (%) (Auto) 13.5 % Eosinophils (%) (Auto) 2.8 % Basophils (%) (Auto) 0.4 % Neutrophils # (Auto) 3.30 K/uL Lymphocytes # (Auto) 1.07 K/uL Monocytes # (Auto) 0.71 K/uL Eosinophils # (Auto) 0.15 K/uL Basophils # (Auto) 0.02 K/uL RDW Standard Deviation 48.5 fL RDW Coefficient of Variation 14.9 % Immature Granulocyte % (Auto) 0.4 % Immature Granulocyte # (Auto) 0.02 K/uL Sodium Level 111 mmol/L Potassium Level 3.0 mmol/L Chloride Level 75 mmol/L Carbon Dioxide Level 26 mmol/L Anion Gap 10.0 mmol/L Blood Urea Nitrogen 8 mg/dl Creatinine 0.75 mg/dl Est Creatinine Clear Calc Drug Dose 117.5 ml/min Estimated GFR () 111.6 Estimated GFR (Non- 96.3 BUN/Creatinine Ratio 11.0 Random Glucose 99 mg/dl Calcium Level 7.5 mg/dl Phosphorus Level 1.7 mg/dl Magnesium Level 1.8 mg/dl Assessment & Plan This is a 63-year-old male with history of alcohol dependency, chronic hyponatremia, hypertension and hepatic steatosis who is being evaluated for acute on chronic hyponatremia 1. Severe hyponatremia: Patient has acute on chronic hyponatremia. His serum Osmolarity was 211 which makes it a true hypo-osmolar hyponatremia. This is likely in setting of chronic alcohol ingestion. Sodium this morning of 111. Target sodium is 114 by 5 PM today and 120 by 5 PM tomorrow Reduce DDAVP to 1 mcg IV every 6 hours to shut off the urine output as he is at risk of overcorrection. Recommend 2g of NaCl po x. If the sodium goes above the target, give D5 water at 200 mL/h and monitor sodium. Monitor sodium every 4 hourly. If patient is allowed to take orally, restrict p.o. intake to 1 L in 24 hours. 2. Hypertension: His blood pressure is well controlled. Would hold any antihypertensives at the moment. 3. Hypokalemia: Recommend a total of 60 mEq of potassium chloride today. Monitor potassium and replete as needed with cautioned that this can also increase his sodium. 4. Hypomagnesemia: Monitor and replace as needed Thank you for the courtesy of the consultation renal will follow with you
[2018-07-11] MEDS ORDERED: SODIUM CHLORIDE 1 GM TAB PO ONE (09:30)
[2018-07-11] MEDS: MULTIVITAMIN TAB PO SCH (09:41)
[2018-07-11] MEDS: THIAMINE HCL 100 MG TAB PO SCH (09:41)
[2018-07-11] MEDS: POT PHOSPHATE MONOBASIC W/ SOD TAB PO SCH ×4 (09:41→21:05)
[2018-07-11] MEDS: POTASSIUM CHLORIDE 20 MEQ TABCR PO SCH (09:41)
[2018-07-11] MEDS: ENOXAPARIN 40 MG/0.4 ML SYR SQ SCH (09:42)
[2018-07-11] MEDS: LABETALOL HCL 200 MG TAB PO SCH ×2 (09:46→21:05)
[2018-07-11] MEDS ORDERED: GABAPENTIN 600 MG TAB PO SCH (12:45)
[2018-07-11] MEDS ORDERED: LORAZEPAM 2 MG/ML 1 ML VIAL IV PRN (12:45)
[2018-07-11] MEDS ORDERED: GABAPENTIN 600MG LOADING DOSE PO ONE (14:00)
[2018-07-11] MEDS: DESMOPRESSIN ACETATE INJ 1 MCG in SODIUM CHLORIDE 0.9% 50ML 50 ML IV SCH ×2 (14:01→20:36)
--- NOTE | 2018-07-11 14:21 | Progress Note ---
Medicine Progress Note Date & Time of Visit: Jul 11, 2018 at 14:06. Subjective seen resting in bed, comfortable states he feels fine denies headache, dizziness, nausea no chest pain, dyspnea no tremors, hallucinations, sweats denies other symptoms Objective Last 8 Hrs Date Time Temp Pulse Resp B/P (MAP) Pulse Ox O2 Delivery O2 Flow Rate FiO2 07/11/18 12:01 67 19 142/84 (103) 96 Room Air 07/11/18 11:01 69 19 152/72 (98) 94 Room Air 07/11/18 10:12 Room Air 07/11/18 10:01 146/99 (115) 95 Room Air 07/11/18 09:01 77 16 161/86 (111) 95 Room Air 07/11/18 08:01 36.8 81 14 128/93 (105) 95 Room Air 07/11/18 07:01 62 17 149/91 (110) 95 Room Air Physical Exam: General-weighted 3, distress, speaking his use Eyes- anicteric Neck- no JVD Lungs- clear breath sounds bilaterally no crackles no wheezes Heart- normal rate, regular rhythm, no murmurs Abdomen- normal bowel sounds, soft, nontender Extremities- no pretibial edema, no calf tenderness Neuro- alert, oriented x 3; no gross focal motor or sensory deficits Skin- warm & dry Laboratory Results: Last 24 Hours Test 07/10/18 14:45 07/10/18 16:17 07/10/18 21:57 07/11/18 05:52 Sodium Level 109 mmol/L 110 mmol/L 111 mmol/L Potassium Level 2.7 mmol/L 2.9 mmol/L 3.0 mmol/L Chloride Level 70 mmol/L 73 mmol/L 75 mmol/L Carbon Dioxide Level 30 mmol/L 30 mmol/L 26 mmol/L Anion Gap 9.0 mmol/L 7.0 mmol/L 10.0 mmol/L Blood Urea Nitrogen 9 mg/dl 11 mg/dl 8 mg/dl Creatinine 0.97 mg/dl 0.86 mg/dl 0.75 mg/dl Est Creatinine Clear Calc Drug Dose 90.8 ml/min 102.4 ml/min 117.5 ml/min Estimated GFR () 94.6 105.5 111.6 Estimated GFR (Non- 81.6 91.0 96.3 BUN/Creatinine Ratio 9.0 13.0 11.0 Random Glucose 102 mg/dl 97 mg/dl 99 mg/dl Calcium Level 7.7 mg/dl 7.6 mg/dl 7.5 mg/dl Bedside Glucose 120 mg/dl White Blood Count 5.27 K/uL Red Blood Count 3.08 M/uL Hemoglobin 10.4 g/dL Hematocrit 27.7 % Mean Corpuscular Volume 89.9 fL Mean Corpuscular Hemoglobin 33.8 pg Mean Corpuscular Hemoglobin Concent 37.5 g/dl Platelet Count 132 K/uL Mean Platelet Volume 8.4 fL Neutrophils (%) (Auto) 62.6 % Lymphocytes (%) (Auto) 20.3 % Monocytes (%) (Auto) 13.5 % Eosinophils (%) (Auto) 2.8 % Basophils (%) (Auto) 0.4 % Neutrophils # (Auto) 3.30 K/uL Lymphocytes # (Auto) 1.07 K/uL Monocytes # (Auto) 0.71 K/uL Eosinophils # (Auto) 0.15 K/uL Basophils # (Auto) 0.02 K/uL RDW Standard Deviation 48.5 fL RDW Coefficient of Variation 14.9 % Immature Granulocyte % (Auto) 0.4 % Immature Granulocyte # (Auto) 0.02 K/uL Phosphorus Level 1.7 mg/dl Magnesium Level 1.8 mg/dl Test 07/11/18 11:39 Bedside Glucose 131 mg/dl Assessment & Plan Patient is a 63yo M with a PMH of alcohol dependence, chronic hyponatremia, HTN and COPD who was directed to present to ED due to severe hyponatremia on lab work ordered by PCP. Severe hyponatremia -Serum sodium of 102 on admission -In setting of alcohol abuse--30 beers daily, per -Also taking medications (including lasix, hctz) incorrectly at home) -Mildly symptomatic with weakness, no reported falls at home -Hypotonic hyponatremia with a serum osm of 211 -Consulted nephrology -Hypertonic saline ordered Sodium improved from 102--> 109-->111 07/11 NaCl tab ordered Desmopressin decreased to 1mcg q6h repeat Na every 4 hours goal til 5pm is 114 give D5w if above 114, 200c/hr and monitor Na discussed with Dr. Treviño at length voiced my concern that patient still needs ICU monitoring he recommended to transfer to Telemetry -Seizure precautions Hypokalemia Given IV and p.o. potassium Monitor Hypomagnesemia replaced mg 1.8 Alcohol dependence -Last drink was day of admission -Alcohol level <3 mg/dl -Thiamine IV ordered now -Withdrawal protocol ordered , including Gabapentin protocol Hypertension BP elevated usual Labetalol PO resumed GERD -Pepcid COPD -Stable -Continue home inhalers DVT Ppx: SCDs Lovenox Dispo: pending Current Inpatient Medications: Current Inpatient Medications Medications (Trade) Dose Ordered Sig/Rachel Route Start Time Stop Time Status Last Admin Dose Admin Miscellaneous Information (Icu Protocol For Hyperglycemia) 1 ea PRN PRN N/A 07/09/18 18:15 07/11/18 18:14 Thiamine HCl (Vitamin B-1 Tab) 100 mg QAM PO 07/10/18 09:00 08/09/18 08:59 07/11/18 09:41 100 MG Multivitamins (Multivitamin Tab) 1 tab QAM PO 07/10/18 09:00 08/09/18 08:59 07/11/18 09:41 1 TAB Enoxaparin Sodium (Lovenox Inj) 40 mg QAM SQ 07/10/18 09:00 08/09/18 08:59 07/11/18 09:42 40 MG Potassium Chloride (Klor-Con Tab) 40 meq QAM PO 07/10/18 09:30 08/09/18 09:29 07/11/18 09:41 40 MEQ Potassium/ Phosphorus/Sodium (Phospha 250 Neutral 155-852-130 Mg) 2 tab QID PO 07/10/18 09:30 08/09/18 09:29 07/11/18 14:03 2 TAB Desmopressin Acetate 1 mcg/ Sodium Chloride 50.25 ml @ 100 mls/hr Q6H IV 07/11/18 14:30 08/08/18 20:29 07/11/18 14:01 100 MLS/HR Labetalol HCl (Normodyne Tab) 200 mg BID PO 07/11/18 21:00 08/10/18 20:59 07/11/18 09:46 200 MG Lorazepam (Ativan Inj) 1 mg ONE PRN IV 07/11/18 12:45 08/10/18 12:44 Gabapentin (Neurontin Cap) 100 mg Q6H PO 07/11/18 20:00 07/12/18 02:01 Gabapentin (Neurontin Tab) 600 mg Q24H PO 07/12/18 13:00 07/12/18 13:01 Gabapentin (Neurontin Cap) 400 mg Q24H PO 07/13/18 13:00 07/13/18 13:01 Gabapentin (Neurontin Cap) 200 mg Q24H PO 07/14/18 13:00 07/14/18 13:01
[2018-07-11 15:16] LABS: CALCIUM 7.9 mg/dl (8.5-10.1); CREATININE 0.92 mg/dl (0.60-1.40); PHOSPHORUS 1.9 mg/dl (2.5-4.9); POTASSIUM 3.4 mmol/L (3.5-5.1)
--- NOTE | 2018-07-11 16:38 | Critical Care Progress Note ---
Critical Care Progress Note Date of Service Jul 11, 2018. Attending Dr. Kamila Quesada The patient remains asymptomatic, following commands and answering questions, denies any pain dizziness or altered mental status. No tremor reported. Objective Physical exam on 07/10/2018 showed vital signs are stable, S1-S2 regular rate and rhythm, lungs are clear, abdomen is soft and benign, no edema, nicotine staining on his mustache noted, neurologically he has no tremor and he is nonfocal. Most recent sodium was 108. BUN/creatinine has been stable. The rest of his labs are within acceptable limits except for his electrolytes. Physical exam on 07/11/2015 showed stable vital signs, regular rate and rhythm, clear lung shepard, abdomen is benign, no edema. Neurologically he is nonfocal, no evidence of tremor or catecholamine surge symptoms. His laboratory showed persistent sodium at 111 and increased to 112. Assessment & Plan 1. Severe acute on chronic hyponatremia, related to Potomania from alcohol abuse. 2. Patient is active smoker with history of multiple falls and refracture. 3. Possible COPD. 4. The patient denies any history of alcohol withdrawal in the past. 5. Fatty liver due to alcohol abuse. Plan: 1. Slow correction of sodium, patient however is totally asymptomatic. His baseline sodium is in the 120s range.. 2. Replace potassium and phosphorus. 3. Fluid restriction. 4. Discontinue gabapentin in the face of severe hyponatremia. Also, there is no evidence of withdrawal from alcohol in this patient. Although he is alcoholic, he has not been in withdrawal or detox in the past. 5. I will hold off on the Ativan as the patient has not had any evidence of withdrawal and never been in DT in the past. 6. If the patient goes into DT, I will start him on phenobarbital. 7. Transfer to regular floor. 8. Restart labetalol 200 twice daily. 9. DDAVP and 3% saline per Dr. Batista, appreciate his input. Dose decreased to 1 mcg every 6 hours. 10. DVT prophylaxis and GI prophylaxis. 11. Sodium chloride 2 g given p.o. 12. Transfer to regular floor, appreciate Dr. Garcia acceptance of this case. Discussed with the staff on rounds and details, discussed with multiple principles, appreciate all inputs. CCT was 45 minutes. Data Medications: Current Inpatient Medications Medications (Trade) Dose Ordered Sig/Rachel Route Start Time Stop Time Status Last Admin Dose Admin Miscellaneous Information (Icu Protocol For Hyperglycemia) 1 ea PRN PRN N/A 07/09/18 18:15 07/11/18 18:14 Thiamine HCl (Vitamin B-1 Tab) 100 mg QAM PO 07/10/18 09:00 08/09/18 08:59 07/11/18 09:41 100 MG Multivitamins (Multivitamin Tab) 1 tab QAM PO 07/10/18 09:00 08/09/18 08:59 07/11/18 09:41 1 TAB Enoxaparin Sodium (Lovenox Inj) 40 mg QAM SQ 07/10/18 09:00 08/09/18 08:59 07/11/18 09:42 40 MG Potassium Chloride (Klor-Con Tab) 40 meq QAM PO 07/10/18 09:30 08/09/18 09:29 07/11/18 09:41 40 MEQ Potassium/ Phosphorus/Sodium (Phospha 250 Neutral 155-852-130 Mg) 2 tab QID PO 07/10/18 09:30 08/09/18 09:29 07/11/18 14:03 2 TAB Desmopressin Acetate 1 mcg/ Sodium Chloride 50.25 ml @ 100 mls/hr Q6H IV 07/11/18 14:30 08/08/18 20:29 07/11/18 14:01 100 MLS/HR Labetalol HCl (Normodyne Tab) 200 mg BID PO 07/11/18 21:00 08/10/18 20:59 07/11/18 09:46 200 MG Lorazepam (Ativan Inj) 1 mg ONE PRN IV 07/11/18 12:45 08/10/18 12:44 Gabapentin (Neurontin Cap) 100 mg Q6H PO 07/11/18 20:00 07/12/18 02:01 Gabapentin (Neurontin Tab) 600 mg Q24H PO 07/12/18 13:00 07/12/18 13:01 Gabapentin (Neurontin Cap) 400 mg Q24H PO 07/13/18 13:00 07/13/18 13:01 Gabapentin (Neurontin Cap) 200 mg Q24H PO 07/14/18 13:00 07/14/18 13:01 I & O: 24-Hour Column 07/12/18 08:00 Intake Total 840 ml Output Total 1150 ml Balance -310 ml Vital Signs: Date Time Temp Pulse Resp B/P (MAP) Pulse Ox O2 Delivery O2 Flow Rate FiO2 07/11/18 15:50 Room Air 07/11/18 15:45 36.9 62 16 155/89 (111) 100 Room Air 07/11/18 13:01 67 20 132/86 (101) 97 Room Air 07/11/18 12:01 67 19 142/84 (103) 96 Room Air 07/11/18 11:01 69 19 152/72 (98) 94 Room Air 07/11/18 10:12 Room Air 07/11/18 10:01 146/99 (115) 95 Room Air 07/11/18 09:01 77 16 161/86 (111) 95 Room Air 07/11/18 08:01 36.8 81 14 128/93 (105) 95 Room Air 07/11/18 07:01 62 17 149/91 (110) 95 Room Air 07/11/18 06:01 62 18 149/90 (109) 93 Room Air 07/11/18 05:01 67 15 143/93 (110) 94 Room Air 07/11/18 04:01 36.7 64 17 146/91 (109) 92 Room Air 07/11/18 03:01 64 16 132/84 (100) 89 Room Air 07/11/18 02:01 68 19 145/92 (109) 95 Room Air 07/11/18 01:01 74 15 143/92 (109) 95 Room Air 07/11/18 00:01 36.7 66 18 134/82 (99) 91 Room Air 07/10/18 23:01 68 18 144/91 (108) 93 Room Air 07/10/18 22:01 73 19 146/86 (106) 93 Room Air 07/10/18 21:01 77 20 130/79 (96) 93 Room Air 07/10/18 20:26 95 Room Air 07/10/18 20:01 36.8 68 18 130/83 (99) 95 Room Air 07/10/18 19:05 73 14 131/76 (94) 94 Room Air 07/10/18 17:01 82 16 143/81 (101) 94 Room Air 07/10/18 16:41 95 Room Air Laboratory Results: Last 24 Hours Test 07/10/18 21:57 8/12/18 05:52 07/11/18 11:39 07/11/18 14:43 Sodium Level 110 mmol/L 111 mmol/L 112 mmol/L Potassium Level 2.9 mmol/L 3.0 mmol/L 3.4 mmol/L Chloride Level 73 mmol/L 75 mmol/L 79 mmol/L Carbon Dioxide Level 30 mmol/L 26 mmol/L 25 mmol/L Anion Gap 7.0 mmol/L 10.0 mmol/L 8.0 mmol/L Blood Urea Nitrogen 11 mg/dl 8 mg/dl 8 mg/dl Creatinine 0.86 mg/dl 0.75 mg/dl 0.92 mg/dl Est Creatinine Clear Calc Drug Dose 102.4 ml/min 117.5 ml/min 95.8 ml/min Estimated GFR () 105.5 111.6 100.8 Estimated GFR (Non- 91.0 96.3 87.0 BUN/Creatinine Ratio 13.0 11.0 8.6 Random Glucose 97 mg/dl 99 mg/dl 101 mg/dl Calcium Level 7.6 mg/dl 7.5 mg/dl 7.9 mg/dl White Blood Count 5.27 K/uL Red Blood Count 3.08 M/uL Hemoglobin 10.4 g/dL Hematocrit 27.7 % Mean Corpuscular Volume 89.9 fL Mean Corpuscular Hemoglobin 33.8 pg Mean Corpuscular Hemoglobin Concent 37.5 g/dl Platelet Count 132 K/uL Mean Platelet Volume 8.4 fL Neutrophils (%) (Auto) 62.6 % Lymphocytes (%) (Auto) 20.3 % Monocytes (%) (Auto) 13.5 % Eosinophils (%) (Auto) 2.8 % Basophils (%) (Auto) 0.4 % Neutrophils # (Auto) 3.30 K/uL Lymphocytes # (Auto) 1.07 K/uL Monocytes # (Auto) 0.71 K/uL Eosinophils # (Auto) 0.15 K/uL Basophils # (Auto) 0.02 K/uL RDW Standard Deviation 48.5 fL RDW Coefficient of Variation 14.9 % Immature Granulocyte % (Auto) 0.4 % Immature Granulocyte # (Auto) 0.02 K/uL Phosphorus Level 1.7 mg/dl 1.9 mg/dl Magnesium Level 1.8 mg/dl Bedside Glucose 131 mg/dl
[2018-07-11 20:17] LABS: CALCIUM 7.8 mg/dl (8.5-10.1); CREATININE 0.97 mg/dl (0.60-1.40); POTASSIUM 3.4 mmol/L (3.5-5.1)
[2018-07-11] MEDS: GABAPENTIN 100MG Q6H DOSE PO SCH (20:32)
[2018-07-12] MEDS ORDERED: GABAPENTIN 600MG Q12H DOSE PO SCH
[2018-07-12 00:18] LABS: CALCIUM 7.7 mg/dl (8.5-10.1); CREATININE 0.79 mg/dl (0.60-1.40); PHOSPHORUS 2.6 mg/dl (2.5-4.9); POTASSIUM 3.6 mmol/L (3.5-5.1)
[2018-07-12] MEDS: GABAPENTIN 100MG Q6H DOSE PO SCH (02:01)
[2018-07-12] MEDS: DESMOPRESSIN ACETATE INJ 1 MCG in SODIUM CHLORIDE 0.9% 50ML 50 ML IV SCH ×2 (02:04→08:38)
[2018-07-12 03:51] VITALS: BP 143/79; PULSE 67; TEMP 36.8; O2SAT 96
[2018-07-12 04:08] LABS: BASO % 0.3 %; BASO ABS # 0.02 K/uL (0-0.2); EOS % 2.6 %; EOS ABS # 0.16 K/uL (0-0.5); HEMATOCRIT 27.7 % (42-52); HEMOGLOBIN 10.2 g/dL (14.0-18.0); IG# 0.03 K/uL (0.00-0.02); LYMPH % 17.4 %; LYMPH ABS # 1.05 K/uL (1.2-3.4); MEAN CELL VOLUME 89.9 fL (80-100); MEAN CORPUSCULAR HEMOGLOBIN 33.1 pg (25-34); MEAN CORPUSCULAR HGB CONC 36.8 g/dl (32-36); MEAN PLATELET VOLUME 8.8 fL (7.4-10.4); MONO % 13.2 %; NEUT ABS # 3.99 K/uL (1.4-6.5); PLATELET COUNT 129 K/uL (130-400); RED CELL DISTRIBUTION WIDTH CV 15.1 % (11.5-14.5); RED CELL DISTRIBUTION WIDTH SD 48.7 fL (36.4-46.3); WHITE BLOOD COUNT 6.05 K/uL (4.8-10.8)
[2018-07-12 04:32] LABS: CALCIUM 7.7 mg/dl (8.5-10.1); CREATININE 0.68 mg/dl (0.60-1.40); PHOSPHORUS 2.3 mg/dl (2.5-4.9); POTASSIUM 3.3 mmol/L (3.5-5.1)
[2018-07-12 07:32] VITALS: BP 141/69; PULSE 79; TEMP 36.5; O2SAT 98
[2018-07-12] MEDS: POTASSIUM CHLORIDE 20 MEQ TABCR PO SCH (07:44)
[2018-07-12] MEDS: THIAMINE HCL 100 MG TAB PO SCH (07:44)
[2018-07-12] MEDS: POT PHOSPHATE MONOBASIC W/ SOD TAB PO SCH ×4 (07:45→20:02)
[2018-07-12] MEDS: MULTIVITAMIN TAB PO SCH (07:45)
[2018-07-12] MEDS: LABETALOL HCL 200 MG TAB PO SCH ×2 (07:46→20:01)
[2018-07-12] MEDS: ENOXAPARIN 40 MG/0.4 ML SYR SQ SCH (07:47)
[2018-07-12 09:57] LABS: CALCIUM 7.8 mg/dl (8.5-10.1); CREATININE 0.7 mg/dl (0.60-1.40); POTASSIUM 3.6 mmol/L (3.5-5.1)
--- NOTE | 2018-07-12 10:18 | Nephrology Progress Note ---
Nephrology Progress Note Date of Service: Jul 12, 2018. Subjective no c/o N, confusion, edema, sob, uncontrolled pain, RAE, vision changes, tremor. Objective Date Time Temp Pulse Resp B/P (MAP) Pulse Ox O2 Delivery O2 Flow Rate FiO2 07/12/18 08:00 Room Air 07/12/18 07:32 36.5 79 18 141/69 (93) 98 07/12/18 03:51 36.8 67 20 143/79 (100) 96 Room Air 07/11/18 23:13 36.8 68 22 157/88 (111) 98 Room Air 07/11/18 20:00 Room Air 07/11/18 19:52 37.1 67 18 141/79 (99) 97 Room Air 07/11/18 15:50 Room Air 07/11/18 15:45 36.9 62 16 155/89 (111) 100 Room Air 07/11/18 13:01 67 20 132/86 (101) 97 Room Air 07/11/18 12:01 67 19 142/84 (103) 96 Room Air 07/11/18 11:01 69 19 152/72 (98) 94 Room Air 07/11/18 10:12 Room Air 07/11/18 10:01 146/99 (115) 95 Room Air 07/11/18 09:01 77 16 161/86 (111) 95 Room Air Physical Exam: [id number], no acute distress but Eyes-eomi, nonicteric ENT-trachea midline, MMM Neck-supple, no JVD Lungs-clear to auscultation bilaterally Heart-heart sounds 1 and 2 regular rate and rhythm no murmurs Abdomen-soft nondistended bowel sounds are present; + fluid wave, no garcia Extremities-no edema peripheral pulses are present Neuro-oriented 3, no focal neurological deficits but [place] and slow processing; answers appropriately however Current Inpatient Medications Medications (Trade) Dose Ordered Sig/Rachel Route Start Time Stop Time Status Last Admin Dose Admin Thiamine HCl (Vitamin B-1 Tab) 100 mg QAM PO 07/10/18 09:00 08/09/18 08:59 07/12/18 07:44 100 MG Multivitamins (Multivitamin Tab) 1 tab QAM PO 07/10/18 09:00 08/09/18 08:59 07/12/18 07:45 1 TAB Enoxaparin Sodium (Lovenox Inj) 40 mg QAM SQ 07/10/18 09:00 08/09/18 08:59 07/12/18 07:47 40 MG Potassium Chloride (Klor-Con Tab) 40 meq QAM PO 07/10/18 09:30 08/09/18 09:29 07/12/18 07:44 40 MEQ Potassium/ Phosphorus/Sodium (Phospha 250 Neutral 155-852-130 Mg) 2 tab QID PO 07/10/18 09:30 08/09/18 09:29 07/12/18 07:45 2 TAB Desmopressin Acetate 1 mcg/ Sodium Chloride 50.25 ml @ 100 mls/hr Q6H IV 07/11/18 14:30 08/08/18 20:29 07/12/18 08:38 100 MLS/HR Labetalol HCl (Normodyne Tab) 200 mg BID PO 07/11/18 21:00 08/10/18 20:59 07/12/18 07:46 200 MG Lorazepam (Ativan Inj) 1 mg ONE PRN IV 07/11/18 12:45 08/10/18 12:44 Gabapentin (Neurontin Tab) 600 mg Q24H PO 07/12/18 13:00 07/12/18 13:01 Gabapentin (Neurontin Cap) 400 mg Q24H PO 07/13/18 13:00 07/13/18 13:01 Gabapentin (Neurontin Cap) 200 mg Q24H PO 07/14/18 13:00 07/14/18 13:01 Last 24 Hours Test 07/11/18 11:39 07/11/18 14:43 07/11/18 19:45 07/11/18 23:45 Bedside Glucose 131 mg/dl Sodium Level 112 mmol/L 114 mmol/L 116 mmol/L Potassium Level 3.4 mmol/L 3.4 mmol/L 3.6 mmol/L Chloride Level 79 mmol/L 81 mmol/L 80 mmol/L Carbon Dioxide Level 25 mmol/L 25 mmol/L 26 mmol/L Anion Gap 8.0 mmol/L 8.0 mmol/L 10.0 mmol/L Blood Urea Nitrogen 8 mg/dl 9 mg/dl 9 mg/dl Creatinine 0.92 mg/dl 0.97 mg/dl 0.79 mg/dl Est Creatinine Clear Calc Drug Dose 95.8 ml/min 90.8 ml/min 111.5 ml/min Estimated GFR () 100.8 94.6 109.2 Estimated GFR (Non- 87.0 81.6 94.2 BUN/Creatinine Ratio 8.6 9.5 11.4 Random Glucose 101 mg/dl 86 mg/dl 99 mg/dl Calcium Level 7.9 mg/dl 7.8 mg/dl 7.7 mg/dl Phosphorus Level 1.9 mg/dl 2.0 mg/dl 2.6 mg/dl Test 07/12/18 03:57 07/12/18 08:00 White Blood Count 6.05 K/uL Red Blood Count 3.08 M/uL Hemoglobin 10.2 g/dL Hematocrit 27.7 % Mean Corpuscular Volume 89.9 fL Mean Corpuscular Hemoglobin 33.1 pg Mean Corpuscular Hemoglobin Concent 36.8 g/dl Platelet Count 129 K/uL Mean Platelet Volume 8.8 fL Neutrophils (%) (Auto) 66.0 % Lymphocytes (%) (Auto) 17.4 % Monocytes (%) (Auto) 13.2 % Eosinophils (%) (Auto) 2.6 % Basophils (%) (Auto) 0.3 % Neutrophils # (Auto) 3.99 K/uL Lymphocytes # (Auto) 1.05 K/uL Monocytes # (Auto) 0.80 K/uL Eosinophils # (Auto) 0.16 K/uL Basophils # (Auto) 0.02 K/uL RDW Standard Deviation 48.7 fL RDW Coefficient of Variation 15.1 % Immature Granulocyte % (Auto) 0.5 % Immature Granulocyte # (Auto) 0.03 K/uL Sodium Level 113 mmol/L Potassium Level 3.3 mmol/L Chloride Level 81 mmol/L Carbon Dioxide Level 23 mmol/L Anion Gap 9.0 mmol/L Blood Urea Nitrogen 8 mg/dl Creatinine 0.68 mg/dl Est Creatinine Clear Calc Drug Dose 129.5 ml/min Estimated GFR () 116.2 Estimated GFR (Non- 100.2 BUN/Creatinine Ratio 11.5 Random Glucose 93 mg/dl Calcium Level 7.7 mg/dl Phosphorus Level 2.3 mg/dl Assessment & Plan 63-year-old male with history of alcohol dependencye, chronic hyponatremia, hypertension and hepatic steatosis who is being followed for severe chronic hyponatremia 1. Severe chronic hyponatremia from beer potomania, at significant risk for osmotic demyelination syndrome given EtOH use, malnutrition, and presenting sNa 102. Sodium this morning is 113>114, dropped from [place] value of 116. Target sodium is 119 by 5 PM today -will for now stop DDAVP unless he is trending toward overcorrection. -page w/ noon result, w/ 1600 result -continue to Monitor sodium every 4 hourly, run stat -continue 1L daily fluid restriction for now -ordered repeat urine studies 2. Hypertension: His blood pressure is well controlled on labetalol 3. Hypokalemia: -Monitor potassium and replete as needed po w/ goal K of 4.0; unfortunately no amiloride/triamterene on formulary here as solo medication. -continue 40 mEq daily po K 4. Hypomagnesemia: Monitor daily and replace as needed 5. Risk for EtOH withdrawal >> mgt per primary service Thank you for the courtesy of the consultation renal will follow with you
[2018-07-12 11:38] VITALS: BP 120/76; PULSE 79; TEMP 36.9; O2SAT 96
[2018-07-12] MEDS ORDERED: GABAPENTIN 600MG X1 DOSE PO SCH (13:00)
[2018-07-12 13:07] LABS: CALCIUM 8.4 mg/dl (8.5-10.1); CREATININE 0.74 mg/dl (0.60-1.40); PHOSPHORUS 2.3 mg/dl (2.5-4.9); POTASSIUM 3.6 mmol/L (3.5-5.1)
[2018-07-12] MEDS ORDERED: POTASSIUM CHLORIDE 20 MEQ TABCR PO ONE (13:30)
[2018-07-12 15:40] LABS: OSMOLALITY,URINE 480 mOms/kg (500-800)
[2018-07-12 15:45] LABS: SODIUM RANDOM URINE 32 mEq/L
[2018-07-12 16:13] LABS: CREATININE 1.07 mg/dl (0.60-1.40); PHOSPHORUS 2.2 mg/dl (2.5-4.9); POTASSIUM 3.7 mmol/L (3.5-5.1)
[2018-07-12] MEDS ORDERED: POTASSIUM CHLORIDE 20 MEQ TABCR PO STA (17:17)
[2018-07-12] MEDS ORDERED: FUROSEMIDE INJ 20 MG in SYRINGE 0 ML IV ONE (17:30)
[2018-07-12 19:39] VITALS: BP 131/79; PULSE 76; TEMP 36.7; O2SAT 97
[2018-07-12 21:40] LABS: PHOSPHORUS 2.7 mg/dl (2.5-4.9); POTASSIUM 3.6 mmol/L (3.5-5.1)
[2018-07-12] MEDS ORDERED: POTASSIUM CHLORIDE 10 MEQ TABCR PO ONE (22:15)
[2018-07-12 23:04] VITALS: BP 151/92; PULSE 66; TEMP 37.2; O2SAT 98
[2018-07-13 04:00] VITALS: BP 147/93; PULSE 58; TEMP 36.6; O2SAT 99
--- NOTE | 2018-07-13 06:58 | Progress Note ---
Medicine Progress Note Date & Time of Visit: Jul 13, 2018 at 06:54. delayed entry date of service July 12, 2018 Subjective resting comfortably states he feels fine denies confusion, dizziness, headache, nausea no tremors, anxiety denies other symptoms Objective Last 8 Hrs Date Time Temp Pulse Resp B/P (MAP) Pulse Ox O2 Delivery O2 Flow Rate FiO2 07/13/18 04:00 36.6 58 18 147/93 (111) 99 Room Air 07/12/18 23:59 Room Air 07/12/18 23:04 37.2 66 18 151/92 (111) 98 Room Air Physical Exam: General-weighted 3, distress, speaking his use Eyes- anicteric Neck- no JVD Lungs- clear breath sounds bilaterally Heart- normal rate, regular rhythm, no murmurs Abdomen- normal bowel sounds, soft, nontender Extremities- no pretibial edema, no calf tenderness Neuro- alert, oriented x 3; no gross focal motor or sensory deficits Skin- warm & dry Laboratory Results: Last 24 Hours Test 07/12/18 09:26 07/12/18 12:15 07/12/18 15:00 07/12/18 15:39 Sodium Level 114 mmol/L 113 mmol/L 112 mmol/L Potassium Level 3.6 mmol/L 3.6 mmol/L 3.7 mmol/L Chloride Level 81 mmol/L 80 mmol/L 81 mmol/L Carbon Dioxide Level 25 mmol/L 24 mmol/L 26 mmol/L Anion Gap 8.0 mmol/L 9.0 mmol/L 5.0 mmol/L Blood Urea Nitrogen 7 mg/dl 8 mg/dl 10 mg/dl Creatinine 0.70 mg/dl 0.74 mg/dl 1.07 mg/dl Est Creatinine Clear Calc Drug Dose 125.8 ml/min 119.0 ml/min 82.3 ml/min Estimated GFR () 114.8 112.2 84.0 Estimated GFR (Non- 99.0 96.8 72.5 BUN/Creatinine Ratio 10.2 11.3 9.1 Random Glucose 115 mg/dl 110 mg/dl 95 mg/dl Calcium Level 7.8 mg/dl 8.4 mg/dl 8.0 mg/dl Phosphorus Level 2.0 mg/dl 2.3 mg/dl 2.2 mg/dl Urine Osmolality 480 mOms/kg Urine Random Sodium 32 mEq/L Test 07/12/18 21:02 07/13/18 06:32 Sodium Level 114 mmol/L Potassium Level 3.6 mmol/L Chloride Level 80 mmol/L Carbon Dioxide Level 26 mmol/L Anion Gap 8.0 mmol/L Blood Urea Nitrogen 12 mg/dl Creatinine 1.00 mg/dl Est Creatinine Clear Calc Drug Dose 88.1 ml/min Estimated GFR () 91.1 Estimated GFR (Non- 78.6 BUN/Creatinine Ratio 12.3 Random Glucose 101 mg/dl Calcium Level 8.0 mg/dl Phosphorus Level 2.7 mg/dl Assessment & Plan Patient is a 63yo M with a PMH of alcohol dependence, chronic hyponatremia, HTN and COPD who was directed to present to ED due to severe hyponatremia on lab work ordered by PCP. Severe hyponatremia -Serum sodium of 102 on admission -In setting of alcohol abuse--30 beers daily, per -Also taking medications (including lasix, hctz) incorrectly at home) -Mildly symptomatic with weakness, no reported falls at home -Hypotonic hyponatremia with a serum osm of 211 -Consulted nephrology -Hypertonic saline ordered Sodium improved from 102--> 109-->111 07/11 NaCl tab ordered Desmopressin decreased to 1mcg q6h repeat Na every 4 hours goal til 5pm is 114 give D5w if above 114, 200c/hr and monitor Na 07/12 Na level about the same as last night 113 Desmopressin discontinued Fluid restriction continued monitor discussed with Dr. Orlando Hypokalemia Given IV and p.o. potassium Monitor Hypomagnesemia replaced mg 1.8 Alcohol dependence -Last drink was day of admission -Alcohol level <3 mg/dl -Thiamine IV ordered now -Withdrawal protocol ordered , including Gabapentin protocol Hypertension BP elevated usual Labetalol PO resumed improving GERD -Pepcid COPD -Stable -Continue home inhalers DVT Ppx: SCDs Lovenox Dispo: pending lives at home with family may need Rehab - PT/OT ordered Current Inpatient Medications: Current Inpatient Medications Medications (Trade) Dose Ordered Sig/Rachel Route Start Time Stop Time Status Last Admin Dose Admin Thiamine HCl (Vitamin B-1 Tab) 100 mg QAM PO 07/10/18 09:00 08/09/18 08:59 07/12/18 07:44 100 MG Multivitamins (Multivitamin Tab) 1 tab QAM PO 07/10/18 09:00 08/09/18 08:59 07/12/18 07:45 1 TAB Enoxaparin Sodium (Lovenox Inj) 40 mg QAM SQ 07/10/18 09:00 08/09/18 08:59 07/12/18 07:47 40 MG Potassium Chloride (Klor-Con Tab) 40 meq QAM PO 07/10/18 09:30 08/09/18 09:29 07/12/18 07:44 40 MEQ Potassium/ Phosphorus/Sodium (Phospha 250 Neutral 155-852-130 Mg) 2 tab QID PO 07/10/18 09:30 08/09/18 09:29 07/12/18 20:02 2 TAB Labetalol HCl (Normodyne Tab) 200 mg BID PO 07/11/18 21:00 08/10/18 20:59 07/12/18 20:01 200 MG Lorazepam (Ativan Inj) 1 mg ONE PRN IV 07/11/18 12:45 08/10/18 12:44 Gabapentin (Neurontin Cap) 400 mg Q24H PO 07/13/18 13:00 07/13/18 13:01 Gabapentin (Neurontin Cap) 200 mg Q24H PO 07/14/18 13:00 07/14/18 13:01
[2018-07-13 07:02] LABS: BASO % 0.4 %; BASO ABS # 0.03 K/uL (0-0.2); EOS % 3.4 %; EOS ABS # 0.24 K/uL (0-0.5); HEMATOCRIT 30.1 % (42-52); IG# 0.05 K/uL (0.00-0.02); LYMPH % 16.1 %; LYMPH ABS # 1.13 K/uL (1.2-3.4); MEAN CELL VOLUME 91.5 fL (80-100); MEAN CORPUSCULAR HEMOGLOBIN 33.4 pg (25-34); MEAN CORPUSCULAR HGB CONC 36.5 g/dl (32-36); MEAN PLATELET VOLUME 9.2 fL (7.4-10.4); MONO % 18.6 %; NEUT % 60.8 %; NEUT ABS # 4.25 K/uL (1.4-6.5); PLATELET COUNT 153 K/uL (130-400); RED CELL DISTRIBUTION WIDTH CV 15.3 % (11.5-14.5); RED CELL DISTRIBUTION WIDTH SD 51.2 fL (36.4-46.3)
[2018-07-13 07:08] VITALS: BP 144/87; PULSE 56; TEMP 36.8; O2SAT 95
[2018-07-13 07:42] LABS: CALCIUM 8.5 mg/dl (8.5-10.1); CREATININE 0.78 mg/dl (0.60-1.40); PHOSPHORUS 2.6 mg/dl (2.5-4.9); POTASSIUM 3.8 mmol/L (3.5-5.1)
[2018-07-13] MEDS ORDERED: DESMOPRESSIN ACETATE INJ 1 MCG in SODIUM CHLORIDE 0.9% 50ML 50 ML IV ONE (09:15)
--- NOTE | 2018-07-13 09:21 | Nephrology Progress Note ---
Nephrology Progress Note Date of Service: Jul 13, 2018. Subjective no c/o N, confusion, edema, sob, uncontrolled pain, RAE, vision changes, tremor. he is frustrated that sNa not correcting faster/better Objective Date Time Temp Pulse Resp B/P (MAP) Pulse Ox O2 Delivery O2 Flow Rate FiO2 07/13/18 07:08 36.8 56 18 144/87 (106) 95 Room Air 07/13/18 04:00 36.6 58 18 147/93 (111) 99 Room Air 07/12/18 23:59 Room Air 07/12/18 23:04 37.2 66 18 151/92 (111) 98 Room Air 07/12/18 20:00 Room Air 07/12/18 19:39 36.7 76 19 131/79 (96) 97 Room Air 07/12/18 11:38 36.9 79 18 120/76 (91) 96 Physical Exam: [id number]-[id number], no acute distress on RA Eyes-eomi, nonicteric ENT-trachea midline, MMM, notably less [place] today Neck-supple, no JVD Lungs-clear to auscultation bilaterally COR- S1, S2; regularly spaced in 50s; no murmurs Abdomen-soft nondistended bowel sounds are present; + fluid wave, no garcia Extremities-no edema peripheral pulses are present Neuro-oriented 3, no focal neurological deficits; definitely hears better today and processes info more readily Current Inpatient Medications Medications (Trade) Dose Ordered Sig/Rachel Route Start Time Stop Time Status Last Admin Dose Admin Thiamine HCl (Vitamin B-1 Tab) 100 mg QAM PO 07/10/18 09:00 08/09/18 08:59 07/12/18 07:44 100 MG Multivitamins (Multivitamin Tab) 1 tab QAM PO 07/10/18 09:00 08/09/18 08:59 07/12/18 07:45 1 TAB Enoxaparin Sodium (Lovenox Inj) 40 mg QAM SQ 07/10/18 09:00 08/09/18 08:59 07/12/18 07:47 40 MG Potassium Chloride (Klor-Con Tab) 40 meq QAM PO 07/10/18 09:30 08/09/18 09:29 07/12/18 07:44 40 MEQ Potassium/ Phosphorus/Sodium (Phospha 250 Neutral 155-852-130 Mg) 2 tab QID PO 07/10/18 09:30 08/09/18 09:29 07/12/18 20:02 2 TAB Labetalol HCl (Normodyne Tab) 200 mg BID PO 07/11/18 21:00 08/10/18 20:59 07/12/18 20:01 200 MG Lorazepam (Ativan Inj) 1 mg ONE PRN IV 07/11/18 12:45 08/10/18 12:44 Gabapentin (Neurontin Cap) 400 mg Q24H PO 07/13/18 13:00 07/13/18 13:01 Gabapentin (Neurontin Cap) 200 mg Q24H PO 07/14/18 13:00 07/14/18 13:01 Last 24 Hours Test 07/12/18 09:26 07/12/18 12:15 07/12/18 15:00 07/12/18 15:39 Sodium Level 114 mmol/L 113 mmol/L 112 mmol/L Potassium Level 3.6 mmol/L 3.6 mmol/L 3.7 mmol/L Chloride Level 81 mmol/L 80 mmol/L 81 mmol/L Carbon Dioxide Level 25 mmol/L 24 mmol/L 26 mmol/L Anion Gap 8.0 mmol/L 9.0 mmol/L 5.0 mmol/L Blood Urea Nitrogen 7 mg/dl 8 mg/dl 10 mg/dl Creatinine 0.70 mg/dl 0.74 mg/dl 1.07 mg/dl Est Creatinine Clear Calc Drug Dose 125.8 ml/min 119.0 ml/min 82.3 ml/min Estimated GFR () 114.8 112.2 84.0 Estimated GFR (Non- 99.0 96.8 72.5 BUN/Creatinine Ratio 10.2 11.3 9.1 Random Glucose 115 mg/dl 110 mg/dl 95 mg/dl Calcium Level 7.8 mg/dl 8.4 mg/dl 8.0 mg/dl Phosphorus Level 2.0 mg/dl 2.3 mg/dl 2.2 mg/dl Urine Osmolality 480 mOms/kg Urine Random Sodium 32 mEq/L Test 07/12/18 21:02 07/13/18 06:32 Sodium Level 114 mmol/L 121 mmol/L Potassium Level 3.6 mmol/L 3.8 mmol/L Chloride Level 80 mmol/L 87 mmol/L Carbon Dioxide Level 26 mmol/L 25 mmol/L Anion Gap 8.0 mmol/L 9.0 mmol/L Blood Urea Nitrogen 12 mg/dl 9 mg/dl Creatinine 1.00 mg/dl 0.78 mg/dl Est Creatinine Clear Calc Drug Dose 88.1 ml/min 112.4 ml/min Estimated GFR () 91.1 109.8 Estimated GFR (Non- 78.6 94.7 BUN/Creatinine Ratio 12.3 11.0 Random Glucose 101 mg/dl 97 mg/dl Calcium Level 8.0 mg/dl 8.5 mg/dl Phosphorus Level 2.7 mg/dl 2.6 mg/dl White Blood Count 7.00 K/uL Red Blood Count 3.29 M/uL Hemoglobin 11.0 g/dL Hematocrit 30.1 % Mean Corpuscular Volume 91.5 fL Mean Corpuscular Hemoglobin 33.4 pg Mean Corpuscular Hemoglobin Concent 36.5 g/dl Platelet Count 153 K/uL Mean Platelet Volume 9.2 fL Neutrophils (%) (Auto) 60.8 % Lymphocytes (%) (Auto) 16.1 % Monocytes (%) (Auto) 18.6 % Eosinophils (%) (Auto) 3.4 % Basophils (%) (Auto) 0.4 % Neutrophils # (Auto) 4.25 K/uL Lymphocytes # (Auto) 1.13 K/uL Monocytes # (Auto) 1.30 K/uL Eosinophils # (Auto) 0.24 K/uL Basophils # (Auto) 0.03 K/uL RDW Standard Deviation 51.2 fL RDW Coefficient of Variation 15.3 % Immature Granulocyte % (Auto) 0.7 % Immature Granulocyte # (Auto) 0.05 K/uL Magnesium Level 1.8 mg/dl Assessment & Plan 63-year-old male with history of alcohol dependence, chronic hyponatremia, hypertension and hepatic steatosis who is being followed for severe chronic hyponatremia 1. Severe chronic hyponatremia from beer potomania, at significant risk for osmotic demyelination syndrome given EtOH use, malnutrition, and presenting sNa 102. Sodium this morning is 114>121, an increase in 7 points over 9 hr period, likely related in part to DDAVP clearing his system Target sodium is 125-127 by tomorrow AM. he had one dose of lasix yesterday afternoon. -resume DDAVP as he is trending toward overcorrection> 1 mcg now and another at noon -recheck BMP 1500 stat (order in) and decide on further monitoring based on that result -continue 1.2L daily fluid restriction for now 2. Hypertension: His blood pressure is well controlled on labetalol 3. Hypokalemia: -Monitor potassium and replete as needed po w/ goal K of 4.0; unfortunately no amiloride/triamterene on formulary here as solo medication. -continue 40 mEq daily po K 4. Hypomagnesemia: Monitor daily and replace as needed >> today's level acceptable 5. Risk for EtOH withdrawal >> mgt per primary service Thank you for the courtesy of the consultation renal will follow with you
[2018-07-13] MEDS: POTASSIUM CHLORIDE 20 MEQ TABCR PO SCH (09:27)
[2018-07-13] MEDS: LABETALOL HCL 200 MG TAB PO SCH ×2 (09:28→19:11)
[2018-07-13] MEDS: MULTIVITAMIN TAB PO SCH (09:28)
[2018-07-13] MEDS: THIAMINE HCL 100 MG TAB PO SCH (09:28)
[2018-07-13] MEDS: ENOXAPARIN 40 MG/0.4 ML SYR SQ SCH (09:28)
[2018-07-13] MEDS: POT PHOSPHATE MONOBASIC W/ SOD TAB PO SCH ×4 (09:29→19:11)
--- NOTE | 2018-07-13 11:35 | Progress Note ---
Internal Med Progress Note Date of Service: Jul 13, 2018. Provider Documentation: SUBJECTIVE: Seen and examined at bedside Doing well today No complaints Denies chest pain, SOB, dizziness Sodium levels 121 today No signs of alcohol withdrawal today OBJECTIVE: Vital Signs-as noted below Physical Exam: General Appearance:Moderately built and nourished, no apparent distress Head: normocephalic, Atraumatic Eyes: normal inspection, EOMI, PERRL Neck: supple, Trachea midline Respiratory/Chest: Normal breath sounds, CTA Cardiovascular: S1, S2, No murmur Abdomen/GI:Soft, Non tender, Bowel sounds present Extremities/Musculoskelatal:normal inspection, no edema Neurologic/Psych:AAOX3, grossly no focal neurological deficits Skin: normal color, warm Lab data as noted below. ASSESSMENT & PLAN: Patient is a 63 yr male with a PMH of alcohol dependence, chronic hyponatremia , HTN and COPD who presents for management of severe hyponatremia. Severe hyponatremia 2/2 beer potomania Serum sodium of 102 on admission Also was on lasix, hctz Hold Diuretics for now Continue Fluid restriction DDAVP resumed Appreciate Nephrology Input Monitor renal function Sodium levels: 121 Hypokalemia/Hypomagnesemia replace as needed Monitor electrolytes Alcohol dependence Continue Gabapentin protocol continue thiamine, folic acid Hypertension Mildly elevated Continue Labetalol Resume Losartan monitor GERD continue Pepcid COPD Stable Continue home inhalers DVT Px: Lovenox SQ Disposition: PT/O prior to DC Vital Signs: Date Time Temp Pulse Resp B/P (MAP) Pulse Ox O2 Delivery O2 Flow Rate FiO2 07/13/18 07:08 36.8 56 18 144/87 (106) 95 Room Air 07/13/18 04:00 36.6 58 18 147/93 (111) 99 Room Air 07/12/18 23:59 Room Air 07/12/18 23:04 37.2 66 18 151/92 (111) 98 Room Air 07/12/18 20:00 Room Air 07/12/18 19:39 36.7 76 19 131/79 (96) 97 Room Air 07/12/18 11:38 36.9 79 18 120/76 (91) 96 Lab Results: Results Past 24 Hours Test 07/12/18 12:15 07/12/18 15:00 07/12/18 15:39 07/12/18 21:02 Range/Units Sodium Level 113 112 114 136-145 mmol/L Potassium Level 3.6 3.7 3.6 3.5-5.1 mmol/L Chloride Level 80 81 80 98-107 mmol/L Carbon Dioxide Level 24 26 26 21-32 mmol/L Anion Gap 9.0 5.0 8.0 3-11 mmol/L Blood Urea Nitrogen 8 10 12 7-18 mg/dl Creatinine 0.74 1.07 1.00 0.60-1.40 mg/dl Est Creatinine Clear Calc Drug Dose 119.0 82.3 88.1 ml/min Estimated GFR () 112.2 84.0 91.1 Estimated GFR (Non- 96.8 72.5 78.6 BUN/Creatinine Ratio 11.3 9.1 12.3 10-20 Random Glucose 110 95 101 70-99 mg/dl Calcium Level 8.4 8.0 8.0 8.5-10.1 mg/dl Phosphorus Level 2.3 2.2 2.7 2.5-4.9 mg/dl Urine Osmolality 480 500-800 mOms/kg Urine Random Sodium 32 mEq/L Test 07/13/18 06:32 Range/Units White Blood Count 7.00 4.8-10.8 K/uL Red Blood Count 3.29 4.7-6.1 M/uL Hemoglobin 11.0 14.0-18.0 g/dL Hematocrit 30.1 42-52 % Mean Corpuscular Volume 91.5 80-100 fL Mean Corpuscular Hemoglobin 33.4 25-34 pg Mean Corpuscular Hemoglobin Concent 36.5 32-36 g/dl Platelet Count 153 130-400 K/uL Mean Platelet Volume 9.2 7.4-10.4 fL Neutrophils (%) (Auto) 60.8 % Lymphocytes (%) (Auto) 16.1 % Monocytes (%) (Auto) 18.6 % Eosinophils (%) (Auto) 3.4 % Basophils (%) (Auto) 0.4 % Neutrophils # (Auto) 4.25 1.4-6.5 K/uL Lymphocytes # (Auto) 1.13 1.2-3.4 K/uL Monocytes # (Auto) 1.30 0.11-0.59 K/uL Eosinophils # (Auto) 0.24 0-0.5 K/uL Basophils # (Auto) 0.03 0-0.2 K/uL RDW Standard Deviation 51.2 36.4-46.3 fL RDW Coefficient of Variation 15.3 11.5-14.5 % Immature Granulocyte % (Auto) 0.7 % Immature Granulocyte # (Auto) 0.05 0.00-0.02 K/uL Sodium Level 121 136-145 mmol/L Potassium Level 3.8 3.5-5.1 mmol/L Chloride Level 87 98-107 mmol/L Carbon Dioxide Level 25 21-32 mmol/L Anion Gap 9.0 3-11 mmol/L Blood Urea Nitrogen 9 7-18 mg/dl Creatinine 0.78 0.60-1.40 mg/dl Est Creatinine Clear Calc Drug Dose 112.4 ml/min Estimated GFR () 109.8 Estimated GFR (Non- 94.7 BUN/Creatinine Ratio 11.0 10-20 Random Glucose 97 70-99 mg/dl Calcium Level 8.5 8.5-10.1 mg/dl Phosphorus Level 2.6 2.5-4.9 mg/dl Magnesium Level 1.8 1.8-2.4 mg/dl
[2018-07-13 11:56] VITALS: BP 111/74; PULSE 61; TEMP 37.1; O2SAT 94
[2018-07-13] MEDS ORDERED: GABAPENTIN 600MG X1 DOSE PO SCH (12:00)
[2018-07-13] MEDS: DESMOPRESSIN ACETATE INJ 1 MCG in SODIUM CHLORIDE 0.9% 50ML 50 ML IV SCH ×3 (12:49→23:48)
[2018-07-13] MEDS ORDERED: GABAPENTIN 400MG X1 DOSE PO SCH (13:00)
[2018-07-13 15:25] LABS: CALCIUM 8.4 mg/dl (8.5-10.1); CREATININE 0.89 mg/dl (0.60-1.40); POTASSIUM 4.3 mmol/L (3.5-5.1)
[2018-07-13 17:20] VITALS: BP 110/71; PULSE 64; TEMP 36.9; O2SAT 95
[2018-07-13 18:53] VITALS: BP 144/82; PULSE 71; TEMP 36.9; O2SAT 95
[2018-07-13] MEDS: FAMOTIDINE 20 MG TAB PO SCH (19:11)
[2018-07-13 23:17] VITALS: BP 148/88; PULSE 64; TEMP 37.6; O2SAT 96
[2018-07-14 03:49] VITALS: BP 138/77; PULSE 64; TEMP 37.3; O2SAT 95
[2018-07-14] MEDS: DESMOPRESSIN ACETATE INJ 1 MCG in SODIUM CHLORIDE 0.9% 50ML 50 ML IV SCH (05:26)
[2018-07-14 07:13] LABS: HEMATOCRIT 28.3 % (42-52); MEAN CELL VOLUME 93.1 fL (80-100); MEAN CORPUSCULAR HEMOGLOBIN 32.9 pg (25-34); MEAN CORPUSCULAR HGB CONC 35.3 g/dl (32-36); MEAN PLATELET VOLUME 9.2 fL (7.4-10.4); PLATELET COUNT 158 K/uL (130-400); RED CELL DISTRIBUTION WIDTH CV 15.8 % (11.5-14.5); RED CELL DISTRIBUTION WIDTH SD 53.6 fL (36.4-46.3); WHITE BLOOD COUNT 5.96 K/uL (4.8-10.8)
[2018-07-14 07:44] LABS: CALCIUM 8.8 mg/dl (8.5-10.1); CREATININE 0.85 mg/dl (0.60-1.40)
[2018-07-14] MEDS: POT PHOSPHATE MONOBASIC W/ SOD TAB PO SCH ×4 (07:59→19:45)
[2018-07-14] MEDS: POTASSIUM CHLORIDE 20 MEQ TABCR PO SCH (07:59)
[2018-07-14 08:00] VITALS: BP 156/95; PULSE 63; TEMP 36.9; O2SAT 95; O2SAT 97
[2018-07-14] MEDS: THIAMINE HCL 100 MG TAB PO SCH (08:00)
[2018-07-14] MEDS: MULTIVITAMIN TAB PO SCH (08:00)
[2018-07-14] MEDS: LOSARTAN POTASSIUM 50 MG TAB PO SCH (08:00)
[2018-07-14] MEDS: FAMOTIDINE 20 MG TAB PO SCH ×2 (08:01→19:45)
[2018-07-14] MEDS: ENOXAPARIN 40 MG/0.4 ML SYR SQ SCH (08:01)
[2018-07-14] MEDS: LABETALOL HCL 200 MG TAB PO SCH ×2 (08:01→19:45)
--- NOTE | 2018-07-14 10:25 | Nephrology Progress Note ---
Nephrology Progress Note Date of Service: Jul 14, 2018. Subjective continues slow improvement. no c/o N, confusion, edema, sob, uncontrolled pain , RAE, vision changes, tremor. Objective Date Time Temp Pulse Resp B/P (MAP) Pulse Ox O2 Delivery O2 Flow Rate FiO2 07/14/18 08:00 Room Air 07/14/18 08:00 36.9 63 18 156/95 (115) 97 07/14/18 08:00 95 Room Air 07/14/18 03:49 37.3 64 21 138/77 (97) 95 Room Air 07/13/18 23:17 37.6 64 19 148/88 (108) 96 Room Air 07/13/18 20:00 Room Air 07/13/18 18:53 36.9 71 20 144/82 (102) 95 Room Air 07/13/18 17:20 36.9 64 20 110/71 (84) 95 Room Air 07/13/18 16:00 Room Air 07/13/18 11:56 37.1 61 19 111/74 (86) 94 Room Air Physical Exam: [id number], no acute distress on RA Eyes-eomi, nonicteric ENT-trachea midline, MMM, notably less [place] today Neck-supple, no JVD Lungs-clear to auscultation bilaterally COR- S1, S2; RRR; no murmurs Abdomen-soft nondistended bowel sounds are present; + fluid wave, no garcia Extremities-no edema peripheral pulses are present Neuro-oriented 3, no focal neurological deficits Current Inpatient Medications Medications (Trade) Dose Ordered Sig/Rachel Route Start Time Stop Time Status Last Admin Dose Admin Thiamine HCl (Vitamin B-1 Tab) 100 mg QAM PO 07/10/18 09:00 08/09/18 08:59 07/14/18 08:00 100 MG Multivitamins (Multivitamin Tab) 1 tab QAM PO 07/10/18 09:00 08/09/18 08:59 07/14/18 08:00 1 TAB Enoxaparin Sodium (Lovenox Inj) 40 mg QAM SQ 07/10/18 09:00 08/09/18 08:59 07/14/18 08:01 40 MG Potassium Chloride (Klor-Con Tab) 40 meq QAM PO 07/10/18 09:30 9/10/18 09:29 07/14/18 07:59 40 MEQ Potassium/ Phosphorus/Sodium (Phospha 250 Neutral 155-852-130 Mg) 2 tab QID PO 07/10/18 09:30 08/09/18 09:29 07/14/18 07:59 2 TAB Labetalol HCl (Normodyne Tab) 200 mg BID PO 07/11/18 21:00 08/10/18 20:59 07/14/18 08:01 200 MG Lorazepam (Ativan Inj) 1 mg ONE PRN IV 07/11/18 12:45 08/10/18 12:44 Gabapentin (Neurontin Cap) 200 mg Q24H PO 07/14/18 13:00 07/14/18 13:01 Desmopressin Acetate 1 mcg/ Sodium Chloride 50.25 ml @ 100 mls/hr Q6 IV 07/13/18 12:00 08/12/18 11:59 07/14/18 05:26 100 MLS/HR Folic Acid (Folvite Tab) 1 mg QAM PO 07/14/18 09:00 08/13/18 08:59 07/14/18 08:00 1 MG Famotidine (Pepcid Tab) 20 mg BID PO 07/13/18 21:00 08/12/18 20:59 07/14/18 08:01 20 MG Losartan Potassium (coZAAR TAB) 100 mg DAILY PO 07/14/18 09:00 08/13/18 08:59 07/14/18 08:00 100 MG Last 24 Hours Test 07/13/18 15:01 07/14/18 06:42 Sodium Level 123 mmol/L 125 mmol/L Potassium Level 4.3 mmol/L 4.0 mmol/L Chloride Level 91 mmol/L 92 mmol/L Carbon Dioxide Level 25 mmol/L 27 mmol/L Anion Gap 7.0 mmol/L 6.0 mmol/L Blood Urea Nitrogen 10 mg/dl 9 mg/dl Creatinine 0.89 mg/dl 0.85 mg/dl Est Creatinine Clear Calc Drug Dose 98.5 ml/min 103.1 ml/min Estimated GFR () 104.0 106.0 Estimated GFR (Non- 89.7 91.4 BUN/Creatinine Ratio 10.8 11.1 Random Glucose 99 mg/dl 95 mg/dl Calcium Level 8.4 mg/dl 8.8 mg/dl White Blood Count 5.96 K/uL Red Blood Count 3.04 M/uL Hemoglobin 10.0 g/dL Hematocrit 28.3 % Mean Corpuscular Volume 93.1 fL Mean Corpuscular Hemoglobin 32.9 pg Mean Corpuscular Hemoglobin Concent 35.3 g/dl RDW Standard Deviation 53.6 fL RDW Coefficient of Variation 15.8 % Platelet Count 158 K/uL Mean Platelet Volume 9.2 fL Magnesium Level 1.8 mg/dl Assessment & Plan 63-year-old male with history of alcohol dependence, chronic hyponatremia, hypertension and hepatic steatosis who is being followed for severe chronic hyponatremia 1. Severe chronic hyponatremia from beer potomania, at significant risk for osmotic demyelination syndrome given EtOH use, malnutrition, and presenting sNa 102. Sodium this morning is 125, on target w/ acceptable rate of increase w/ DDAVP on board Target sodium is 131 by tomorrow AM. If he can stay > 130 for 24 hrs w/o aggressive intervention could be followed as outpt -hold DDAVP for now -recheck BMP 1500 stat (order in) and decide on further monitoring/ interventions based on that result -continue 1.2L daily fluid restriction for now 2. Hypertension: His blood pressure had been well controlled on labetalol; higher today > per primary service 3. Hypokalemia: -Monitor potassium and replete as needed po w/ goal K of 4.0; K on target curretnly -continue 40 mEq daily po K 4. Hypomagnesemia: Monitor daily and replace as needed >> today's level acceptable 5. Risk for EtOH withdrawal >> mgt per primary service Thank you for the courtesy of the consultation renal will follow with you
--- NOTE | 2018-07-14 11:23 | Progress Note ---
Internal Med Progress Note Date of Service: Jul 14, 2018. Provider Documentation: SUBJECTIVE: Seen and examined at bedside No new complaints Denies chest pain, SOB, dizziness Sodium levels 125 today No signs of alcohol withdrawal OBJECTIVE: Vital Signs-as noted below Physical Exam: General Appearance:Moderately built and nourished, no apparent distress Head: normocephalic, Atraumatic Eyes: normal inspection, EOMI, PERRL Neck: supple, Trachea midline Respiratory/Chest: Normal breath sounds, CTA Cardiovascular: S1, S2, No murmur Abdomen/GI:Soft, Non tender, Bowel sounds present Extremities/Musculoskelatal:normal inspection, no edema Neurologic/Psych:AAOX3, grossly no focal neurological deficits Skin: normal color, warm Lab data as noted below. ASSESSMENT & PLAN: Patient is a 63 yr male with a PMH of alcohol dependence, chronic hyponatremia , HTN and COPD who presents for management of severe hyponatremia. Severe hyponatremia 2/2 beer potomania Serum sodium of 102 on admission Also was on Lasix, hctz Hold Diuretics for now Continue Fluid restriction DDAVP discontinued Appreciate Nephrology Input Monitor renal function Sodium levels: 102>>121>>125 Target Sodium levels:131 by Tomorrow AM Hypokalemia/Hypomagnesemia replace as needed Monitor electrolytes Alcohol dependence continue Gabapentin protocol continue thiamine, folic acid Hypertension Mildly elevated Continue Labetalol, Losartan monitor GERD continue Pepcid COPD Stable Continue home inhalers DVT Px: Lovenox SQ Disposition: PT/O:Recommend Return Home Vital Signs: Date Time Temp Pulse Resp B/P (MAP) Pulse Ox O2 Delivery O2 Flow Rate FiO2 07/14/18 08:00 Room Air 07/14/18 08:00 36.9 63 18 156/95 (115) 97 07/14/18 08:00 95 Room Air 07/14/18 03:49 37.3 64 21 138/77 (97) 95 Room Air 07/13/18 23:17 37.6 64 19 148/88 (108) 96 Room Air 07/13/18 20:00 Room Air 07/13/18 18:53 36.9 71 20 144/82 (102) 95 Room Air 07/13/18 17:20 36.9 64 20 110/71 (84) 95 Room Air 07/13/18 16:00 Room Air 07/13/18 11:56 37.1 61 19 111/74 (86) 94 Room Air Lab Results: Results Past 24 Hours Test 07/13/18 15:01 07/14/18 06:42 Range/Units Sodium Level 123 125 136-145 mmol/L Potassium Level 4.3 4.0 3.5-5.1 mmol/L Chloride Level 91 92 98-107 mmol/L Carbon Dioxide Level 25 27 21-32 mmol/L Anion Gap 7.0 6.0 3-11 mmol/L Blood Urea Nitrogen 10 9 7-18 mg/dl Creatinine 0.89 0.85 0.60-1.40 mg/dl Est Creatinine Clear Calc Drug Dose 98.5 103.1 ml/min Estimated GFR () 104.0 106.0 Estimated GFR (Non- 89.7 91.4 BUN/Creatinine Ratio 10.8 11.1 10-20 Random Glucose 99 95 70-99 mg/dl Calcium Level 8.4 8.8 8.5-10.1 mg/dl White Blood Count 5.96 4.8-10.8 K/uL Red Blood Count 3.04 4.7-6.1 M/uL Hemoglobin 10.0 14.0-18.0 g/dL Hematocrit 28.3 42-52 % Mean Corpuscular Volume 93.1 80-100 fL Mean Corpuscular Hemoglobin 32.9 25-34 pg Mean Corpuscular Hemoglobin Concent 35.3 32-36 g/dl RDW Standard Deviation 53.6 36.4-46.3 fL RDW Coefficient of Variation 15.8 11.5-14.5 % Platelet Count 158 130-400 K/uL Mean Platelet Volume 9.2 7.4-10.4 fL Magnesium Level 1.8 1.8-2.4 mg/dl
[2018-07-14 12:23] VITALS: BP 142/75; PULSE 66; TEMP 36.6; O2SAT 98
[2018-07-14] MEDS ORDERED: GABAPENTIN 200MG X1 DOSE PO SCH (13:00)
[2018-07-14] MEDS ORDERED: DESMOPRESSIN ACETATE INJ 1 MCG in SODIUM CHLORIDE 0.9% 50ML 50 ML IV SCH (14:00)
[2018-07-14 15:41] LABS: CALCIUM 8.9 mg/dl (8.5-10.1); CREATININE 0.97 mg/dl (0.60-1.40); POTASSIUM 4.3 mmol/L (3.5-5.1)
[2018-07-14 15:43] VITALS: BP 161/87; PULSE 61; TEMP 37; O2SAT 97
[2018-07-14 19:45] VITALS: BP 159/84; PULSE 80; TEMP 36.8; O2SAT 98
[2018-07-15] VITALS (13 sets, daily range): BP systolic 143–198; BP diastolic 76–107; PULSE 60–82; TEMP 36.8–37.1; O2SAT 94–99
[2018-07-15 06:24] LABS: HEMATOCRIT 27.7 % (42-52); HEMOGLOBIN 9.7 g/dL (14.0-18.0)
[2018-07-15 06:51] LABS: CALCIUM 8.5 mg/dl (8.5-10.1); CREATININE 0.89 mg/dl (0.60-1.40); POTASSIUM 3.7 mmol/L (3.5-5.1)
[2018-07-15] MEDS: POT PHOSPHATE MONOBASIC W/ SOD TAB PO SCH ×4 (07:50→21:12)
[2018-07-15] MEDS: THIAMINE HCL 100 MG TAB PO SCH (07:50)
[2018-07-15] MEDS: POTASSIUM CHLORIDE 20 MEQ TABCR PO SCH (07:50)
[2018-07-15] MEDS: MULTIVITAMIN TAB PO SCH (07:50)
[2018-07-15] MEDS: FAMOTIDINE 20 MG TAB PO SCH ×2 (07:50→21:12)
[2018-07-15] MEDS: LABETALOL HCL 200 MG TAB PO SCH ×2 (07:51→19:10)
[2018-07-15] MEDS: LOSARTAN POTASSIUM 50 MG TAB PO SCH (07:51)
[2018-07-15] MEDS: ENOXAPARIN 40 MG/0.4 ML SYR SQ SCH (07:51)
--- NOTE | 2018-07-15 08:16 | Nephrology Progress Note ---
Nephrology Progress Note Date of Service: Jul 15, 2018. Subjective no c/o N, confusion, edema, sob, uncontrolled pain, RAE, vision changes, tremor. hungry and thirsty and eager for d/c Objective Date Time Temp Pulse Resp B/P (MAP) Pulse Ox O2 Delivery O2 Flow Rate FiO2 07/15/18 07:04 36.8 72 20 182/93 (122) 98 Room Air 07/15/18 03:57 36.9 67 21 154/79 (104) 94 Room Air 07/15/18 00:09 37.0 82 21 150/76 (100) 98 Room Air 07/15/18 00:00 Room Air 07/14/18 20:00 Room Air 07/14/18 19:45 36.8 80 20 159/84 (109) 98 Room Air 07/14/18 15:43 37.0 61 18 161/87 (111) 97 Room Air 07/14/18 12:23 36.6 66 18 142/75 (97) 98 07/14/18 08:00 Room Air 07/14/18 08:00 36.9 63 18 156/95 (115) 97 07/14/18 08:00 95 Room Air Physical Exam: [id number], no acute distress on RA, sitting on side of bed eating Eyes-eomi, nonicteric ENT-trachea midline, MMM, notably less [place] today Neck-supple, no JVD Lungs-clear to auscultation bilaterally COR- S1, S2; RRR; no murmurs Abdomen-soft nondistended bowel sounds are present Extremities-no edema peripheral pulses are present Neuro-oriented 3, no focal neurological deficits Current Inpatient Medications Medications (Trade) Dose Ordered Sig/Rachel Route Start Time Stop Time Status Last Admin Dose Admin Thiamine HCl (Vitamin B-1 Tab) 100 mg QAM PO 07/10/18 09:00 08/09/18 08:59 07/14/18 08:00 100 MG Multivitamins (Multivitamin Tab) 1 tab QAM PO 07/10/18 09:00 08/09/18 08:59 07/14/18 08:00 1 TAB Enoxaparin Sodium (Lovenox Inj) 40 mg QAM SQ 07/10/18 09:00 08/09/18 08:59 07/14/18 08:01 40 MG Potassium Chloride (Klor-Con Tab) 40 meq QAM PO 07/10/18 09:30 08/09/18 09:29 07/14/18 07:59 40 MEQ Potassium/ Phosphorus/Sodium (Phospha 250 Neutral 155-852-130 Mg) 2 tab QID PO 07/10/18 09:30 08/09/18 09:29 07/14/18 19:45 2 TAB Labetalol HCl (Normodyne Tab) 200 mg BID PO 07/11/18 21:00 08/10/18 20:59 07/14/18 19:45 200 MG Lorazepam (Ativan Inj) 1 mg ONE PRN IV 07/11/18 12:45 08/10/18 12:44 Folic Acid (Folvite Tab) 1 mg QAM PO 07/14/18 09:00 08/13/18 08:59 07/14/18 08:00 1 MG Famotidine (Pepcid Tab) 20 mg BID PO 07/13/18 21:00 08/12/18 20:59 07/14/18 19:45 20 MG Losartan Potassium (coZAAR TAB) 100 mg DAILY PO 07/14/18 09:00 08/13/18 08:59 07/14/18 08:00 100 MG Last 24 Hours Test 07/14/18 14:53 07/14/18 16:20 07/15/18 06:05 Sodium Level 124 mmol/L 129 mmol/L Potassium Level 4.3 mmol/L 3.7 mmol/L Chloride Level 92 mmol/L 97 mmol/L Carbon Dioxide Level 24 mmol/L 25 mmol/L Anion Gap 8.0 mmol/L 7.0 mmol/L Blood Urea Nitrogen 12 mg/dl 13 mg/dl Creatinine 0.97 mg/dl 0.89 mg/dl Est Creatinine Clear Calc Drug Dose 90.4 ml/min 99.0 ml/min Estimated GFR () 94.6 104.0 Estimated GFR (Non- 81.6 89.7 BUN/Creatinine Ratio 12.2 14.3 Random Glucose 102 mg/dl 104 mg/dl Calcium Level 8.9 mg/dl 8.5 mg/dl Bedside Glucose 100 mg/dl Hemoglobin 9.7 g/dL Hematocrit 27.7 % Assessment & Plan 63-year-old male with history of alcohol dependence, chronic hyponatremia, hypertension and hepatic steatosis who is being followed for severe chronic hyponatremia 1. Severe chronic hyponatremia from beer potomania, at significant risk for osmotic demyelination syndrome given EtOH use, malnutrition, and presenting sNa 102. Sodium this morning is 129, on target w/ acceptable rate of increase w/ DDAVP on board Target sodium is 133 or more by tomorrow AM. If he can stay > 130 for 24 hrs w/ o aggressive intervention could be followed as outpt -hold DDAVP for now -recheck BMP tomorrow am -liberalized fluid limit to 1.5L daily f 2. Hypertension: BP was high yesterday on labetalol >> started on ARB; cont to monitor; use hydralazine prn and monitor for withdrawal 3. Hypokalemia: -Monitor potassium and replete as needed po w/ goal K of 4.0; K on target curretnly -continue 40 mEq daily po K 4. Risk for EtOH withdrawal >> mgt per primary service Thank you for the courtesy of the consultation renal will follow with you
--- NOTE | 2018-07-15 11:52 | Progress Note ---
Internal Med Progress Note Date of Service: Jul 15, 2018. Provider Documentation: SUBJECTIVE: Seen and examined at bedside Eager to get discharged Patient refuses rehab placement despite counselling Denies chest pain, SOB, dizziness Sodium levels 129 today No signs of alcohol withdrawal OBJECTIVE: Vital Signs-as noted below Physical Exam: General Appearance:Moderately built and nourished, no apparent distress Head: normocephalic, Atraumatic Eyes: normal inspection, EOMI, PERRL Neck: supple, Trachea midline Respiratory/Chest: Normal breath sounds, CTA Cardiovascular: S1, S2, No murmur Abdomen/GI:Soft, Non tender, Bowel sounds present Extremities/Musculoskelatal:normal inspection, no edema Neurologic/Psych:AAOX3, grossly no focal neurological deficits Skin: normal color, warm Lab data as noted below. ASSESSMENT & PLAN: Patient is a 63 yr male with a PMH of alcohol dependence, chronic hyponatremia , HTN and COPD who presents for management of severe hyponatremia. Severe hyponatremia 2/2 beer potomania Serum sodium of 102 on admission Also was on Lasix, hctz Hold Diuretics for now Continue Fluid restriction: 1500ml per day DDAVP discontinued Appreciate Nephrology Input Monitor renal function Sodium levels: 102>>121>>125>>>129 Target Sodium levels:> or equal to 133 by Tomorrow AM Hypokalemia/Hypomagnesemia replace as needed Monitor electrolytes Alcohol dependence Completed Gabapentin protocol continue thiamine, folic acid Hypertension Mildly elevated this morning,,, Now better Continue Labetalol, Losartan monitor GERD continue Pepcid COPD Stable Continue home inhalers DVT Px: Lovenox SQ Disposition: PT/O:Recommend Return Home Patient refused Alcohol Rehab Placement Vital Signs: Date Time Temp Pulse Resp B/P (MAP) Pulse Ox O2 Delivery O2 Flow Rate FiO2 07/15/18 11:39 36.8 63 20 143/77 (99) 98 Room Air 07/15/18 08:20 Room Air 07/15/18 07:04 36.8 72 20 182/93 (122) 98 Room Air 07/15/18 03:57 36.9 67 21 154/79 (104) 94 Room Air 07/15/18 00:09 37.0 82 21 150/76 (100) 98 Room Air 07/15/18 00:00 Room Air 07/14/18 20:00 Room Air 07/14/18 19:45 36.8 80 20 159/84 (109) 98 Room Air 07/14/18 15:43 37.0 61 18 161/87 (111) 97 Room Air 07/14/18 12:23 36.6 66 18 142/75 (97) 98 Lab Results: Results Past 24 Hours Test 07/14/18 14:53 07/14/18 16:20 07/15/18 06:05 Range/Units Sodium Level 124 129 136-145 mmol/L Potassium Level 4.3 3.7 3.5-5.1 mmol/L Chloride Level 92 97 98-107 mmol/L Carbon Dioxide Level 24 25 21-32 mmol/L Anion Gap 8.0 7.0 3-11 mmol/L Blood Urea Nitrogen 12 13 7-18 mg/dl Creatinine 0.97 0.89 0.60-1.40 mg/dl Est Creatinine Clear Calc Drug Dose 90.4 99.0 ml/min Estimated GFR () 94.6 104.0 Estimated GFR (Non- 81.6 89.7 BUN/Creatinine Ratio 12.2 14.3 10-20 Random Glucose 102 104 70-99 mg/dl Calcium Level 8.9 8.5 8.5-10.1 mg/dl Bedside Glucose 100 70-99 mg/dl Hemoglobin 9.7 14.0-18.0 g/dL Hematocrit 27.7 42-52 %
[2018-07-15] MEDS ORDERED: HydrALAZINE 10 MG TAB PO PRN (16:30)
[2018-07-15] MEDS ORDERED: LORAZEPAM 2 MG/ML 1 ML VIAL IV PRN (20:30)
[2018-07-15] MEDS ORDERED: GABAPENTIN 600 MG TAB PO SCH (20:30)
[2018-07-15] MEDS ORDERED: AMLODIPINE BESYLATE 5 MG TAB PO ONE (20:45)
[2018-07-16] VITALS (8 sets, daily range): BP systolic 125–193; BP diastolic 70–96; PULSE 57–71; TEMP 36.7–37; O2SAT 94–97
[2018-07-16] MEDS ORDERED: LOSARTAN POTASSIUM 50 MG TAB PO ONE (00:42)
[2018-07-16] MEDS ORDERED: AMLODIPINE BESYLATE 5 MG TAB PO ONE (00:42)
[2018-07-16 06:26] LABS: CALCIUM 9.7 mg/dl (8.5-10.1); CREATININE 0.93 mg/dl (0.60-1.40); POTASSIUM 4.1 mmol/L (3.5-5.1)
[2018-07-16] MEDS: MULTIVITAMIN TAB PO SCH (08:15)
[2018-07-16] MEDS: THIAMINE HCL 100 MG TAB PO SCH (08:15)
[2018-07-16] MEDS: LABETALOL HCL 200 MG TAB PO SCH ×2 (08:15→21:03)
[2018-07-16] MEDS: POT PHOSPHATE MONOBASIC W/ SOD TAB PO SCH ×4 (08:15→21:03)
[2018-07-16] MEDS: FAMOTIDINE 20 MG TAB PO SCH ×2 (08:16→21:03)
[2018-07-16] MEDS: ENOXAPARIN 40 MG/0.4 ML SYR SQ SCH (08:16)
[2018-07-16] MEDS: POTASSIUM CHLORIDE 20 MEQ TABCR PO SCH (08:16)
--- NOTE | 2018-07-16 10:31 | Nephrology Progress Note ---
Nephrology Progress Note Date of Service: Jul 16, 2018. Subjective no c/o N, confusion, edema, sob, uncontrolled pain, RAE, vision changes, tremor. Objective Date Time Temp Pulse Resp B/P (MAP) Pulse Ox O2 Delivery O2 Flow Rate FiO2 07/16/18 06:58 36.9 66 18 171/91 (117) 97 Room Air 07/16/18 06:38 59 169/88 (115) 07/16/18 02:26 71 181/96 (124) 07/16/18 00:41 66 193/96 (128) 07/16/18 00:00 Room Air 07/15/18 23:19 37.0 63 18 182/97 (125) 96 Room Air 07/15/18 21:08 64 193/96 (128) 07/15/18 20:09 68 186/89 (121) 07/15/18 18:55 36.9 65 20 181/102 (128) 97 Room Air 184/104 (130) 07/15/18 17:56 66 174/102 (126) 07/15/18 16:00 36.9 60 20 198/96 (130) 99 Room Air 07/15/18 16:00 99 Room Air 07/15/18 15:09 36.8 62 20 184/107 (132) 99 Room Air 07/15/18 13:50 37.1 65 20 172/82 (112) 97 Room Air 07/15/18 12:41 36.8 63 20 98 07/15/18 11:39 36.8 63 20 143/77 (99) 98 Room Air Physical Exam: [id number]-[id number], no acute distress on RA, lying flat/resting Eyes-eomi, nonicteric ENT-trachea midline, MMM, [place] Neck-supple, no JVD Lungs-clear to auscultation bilaterally COR- S1, S2; RRR; no murmurs Abdomen-soft nondistended bowel sounds are present Extremities-no edema peripheral pulses are present Neuro-oriented 3, no focal neurological deficits Current Inpatient Medications Medications (Trade) Dose Ordered Sig/Rachel Route Start Time Stop Time Status Last Admin Dose Admin Thiamine HCl (Vitamin B-1 Tab) 100 mg QAM PO 07/10/18 09:00 08/09/18 08:59 07/16/18 08:15 100 MG Multivitamins (Multivitamin Tab) 1 tab QAM PO 07/10/18 09:00 08/09/18 08:59 07/16/18 08:15 1 TAB Enoxaparin Sodium (Lovenox Inj) 40 mg QAM SQ 07/10/18 09:00 08/09/18 08:59 07/16/18 08:16 40 MG Potassium Chloride (Klor-Con Tab) 40 meq QAM PO 07/10/18 09:30 08/09/18 09:29 07/16/18 08:16 40 MEQ Potassium/ Phosphorus/Sodium (Phospha 250 Neutral 155-852-130 Mg) 2 tab QID PO 07/10/18 09:30 08/09/18 09:29 07/16/18 08:15 2 TAB Labetalol HCl (Normodyne Tab) 200 mg BID PO 07/11/18 21:00 08/10/18 20:59 07/16/18 08:15 200 MG Lorazepam (Ativan Inj) 1 mg ONE PRN IV 07/11/18 12:45 08/10/18 12:44 Folic Acid (Folvite Tab) 1 mg QAM PO 07/14/18 09:00 08/13/18 08:59 07/16/18 08:15 1 MG Famotidine (Pepcid Tab) 20 mg BID PO 07/13/18 21:00 08/12/18 20:59 07/16/18 08:16 20 MG Hydralazine HCl (Apresoline Tab) 10 mg TID PRN PO 07/15/18 16:30 08/14/18 16:29 07/15/18 17:57 10 MG Lorazepam (Ativan Inj) PRN Dosing -Active Protocol Q1H PRN IV 07/15/18 20:30 08/14/18 20:29 Amlodipine Besylate (Norvasc Tab) 5 mg DAILY PO 07/17/18 09:00 08/15/18 20:59 Losartan Potassium (coZAAR TAB) 100 mg DAILY PO 07/17/18 09:00 08/13/18 08:59 Last 24 Hours Test 07/15/18 16:44 07/16/18 05:36 Bedside Glucose 99 mg/dl Sodium Level 130 mmol/L Potassium Level 4.1 mmol/L Chloride Level 98 mmol/L Carbon Dioxide Level 25 mmol/L Anion Gap 7.0 mmol/L Blood Urea Nitrogen 14 mg/dl Creatinine 0.93 mg/dl Est Creatinine Clear Calc Drug Dose 86.9 ml/min Estimated GFR () 99.5 Estimated GFR (Non- 85.8 BUN/Creatinine Ratio 14.7 Random Glucose 90 mg/dl Calcium Level 9.7 mg/dl Assessment & Plan 63-year-old male with history of alcohol dependence, chronic hyponatremia, hypertension and hepatic steatosis who is being followed for severe chronic hyponatremia 1. Severe chronic hyponatremia from beer potomania, at significant risk for osmotic demyelination syndrome given EtOH use, malnutrition, and presenting sNa 102. Sodium this morning is 130, on target w/ acceptable rate of increase w/ DDAVP on board Target sodium is 133 or more by tomorrow AM. If he can stay > 130 for 24 hrs w/ o aggressive intervention could be followed as outpt -recheck BMP tomorrow am -continue liberalized fluid limit to 1.5L daily now and at d/c 2. Hypertension: BP remains very high>>on increased (from home dose) labetalol (and further dose increase limited by bradycardia); on home/full dose ARB; on 5 mg daily amlodipine and prn hydralazine; ideally would have better control before d/c -added lasix 40 mg po daily, first dose today -added evening dose amlodipine 5 mg -added hctz to list of adverse reactions 3. Hypokalemia: -continue 40 mEq daily po K now and at d/c 4. Risk for EtOH withdrawal >> mgt per primary service AT D/C -losartan, amlodipine BID, K, lasix, labetalol all at current doses -hctz listed prominently as adverse reaction -1.5L fluid limit -repeat bmp weekly x 3 starting w/ f/u at pcp w/in a week of d/c -f/u in CKD clinic w/ me or Dr Batista in 4-8 wks Thank you for the courtesy of the consultation renal will follow with you. Care coordinated w/ Dr Ferrer
[2018-07-16] MEDS ORDERED: FUROSEMIDE 40 MG TAB PO ONE (11:00)
--- NOTE | 2018-07-16 14:01 | Progress Note ---
Internal Med Progress Note Date of Service: Jul 16, 2018. Provider Documentation: SUBJECTIVE: Seen and examined at bedside No complaints Eager to get discharged refuses rehab placement Denies chest pain, SOB, dizziness Sodium levels 130 today BP has been uncontrolled yesterday--asymptomatic Discussed with Nephrology today: Meds adjusted for BP OBJECTIVE: Vital Signs-as noted below Physical Exam: General Appearance:Moderately built and nourished, no apparent distress Head: normocephalic, Atraumatic Eyes: normal inspection, EOMI, PERRL Neck: supple, Trachea midline Respiratory/Chest: Normal breath sounds, CTA Cardiovascular: S1, S2, No murmur Abdomen/GI:Soft, Non tender, Bowel sounds present Extremities/Musculoskelatal:normal inspection, no edema Neurologic/Psych:AAOX3, grossly no focal neurological deficits Skin: normal color, warm Lab data as noted below. ASSESSMENT & PLAN: Patient is a 63 yr male with a PMH of alcohol dependence, chronic hyponatremia , HTN and COPD who presents for management of severe hyponatremia. Severe hyponatremia 2/2 beer potomania Serum sodium of 102 on admission No plan to continue HCTZ upon discharge Continue Fluid restriction: 1500ml per day DDAVP discontinued Appreciate Nephrology Input Monitor renal function Sodium levels: 102>>121>>125>>>129>>130 Target Sodium levels:> or equal to 133 by Tomorrow AM Lasix resumed today Nephrology Recommendations for Discharge: losartan, amlodipine BID, K, lasix, labetalol all at current doses -hctz listed prominently as adverse reaction -1.5L fluid limit -repeat bmp weekly x 3 starting w/ f/u at pcp w/in a week of d/c -f/u in CKD clinic w/ me or Dr Batista in 4-8 wks Hypokalemia/Hypomagnesemia replace as needed Monitor electrolytes Alcohol dependence Completed Gabapentin protocol continue thiamine, folic acid Hypertension Continue Labetalol, Losartan Added Amlodipine for better BP control Lasix Resumed monitor GERD continue Pepcid COPD Stable Continue home inhalers DVT Px: Lovenox SQ Disposition: PT/O:Recommend Return Home Patient refused Alcohol Rehab Placement Plan to discharge once BP is controlled and sodium level stable Vital Signs: Date Time Temp Pulse Resp B/P (MAP) Pulse Ox O2 Delivery O2 Flow Rate FiO2 07/16/18 08:00 97 Room Air 07/16/18 06:58 36.9 66 18 171/91 (117) 97 Room Air 07/16/18 06:38 59 169/88 (115) 07/16/18 02:26 71 181/96 (124) 07/16/18 00:41 66 193/96 (128) 07/16/18 00:00 Room Air 07/15/18 23:19 37.0 63 18 182/97 (125) 96 Room Air 07/15/18 21:08 64 193/96 (128) 07/15/18 20:09 68 186/89 (121) 07/15/18 18:55 36.9 65 20 181/102 (128) 97 Room Air 184/104 (130) 07/15/18 17:56 66 174/102 (126) 07/15/18 16:00 36.9 60 20 198/96 (130) 99 Room Air 07/15/18 16:00 99 Room Air 07/15/18 15:09 36.8 62 20 184/107 (132) 99 Room Air Lab Results: Results Past 24 Hours Test 07/15/18 16:44 07/16/18 05:36 Range/Units Bedside Glucose 99 70-99 mg/dl Sodium Level 130 136-145 mmol/L Potassium Level 4.1 3.5-5.1 mmol/L Chloride Level 98 98-107 mmol/L Carbon Dioxide Level 25 21-32 mmol/L Anion Gap 7.0 3-11 mmol/L Blood Urea Nitrogen 14 7-18 mg/dl Creatinine 0.93 0.60-1.40 mg/dl Est Creatinine Clear Calc Drug Dose 86.9 ml/min Estimated GFR () 99.5 Estimated GFR (Non- 85.8 BUN/Creatinine Ratio 14.7 10-20 Random Glucose 90 70-99 mg/dl Calcium Level 9.7 8.5-10.1 mg/dl
[2018-07-16] MEDS ORDERED: AMLODIPINE BESYLATE 5 MG TAB PO SCH (21:00)
[2018-07-16] MEDS: AMLODIPINE BESYLATE 5 MG TAB PO SCH (21:03)
[2018-07-17 06:49] LABS: CALCIUM 8.9 mg/dl (8.5-10.1); CREATININE 1.01 mg/dl (0.60-1.40); POTASSIUM 3.7 mmol/L (3.5-5.1)
[2018-07-17 07:30] VITALS: O2SAT 97
[2018-07-17 07:39] VITALS: BP 163/83; PULSE 59; TEMP 36.8; O2SAT 97
[2018-07-17] MEDS: FAMOTIDINE 20 MG TAB PO SCH (08:08)
[2018-07-17] MEDS: POTASSIUM CHLORIDE 20 MEQ TABCR PO SCH (08:09)
[2018-07-17] MEDS: POT PHOSPHATE MONOBASIC W/ SOD TAB PO SCH ×2 (08:09→13:00)
[2018-07-17] MEDS: LABETALOL HCL 200 MG TAB PO SCH (08:09)
[2018-07-17] MEDS: AMLODIPINE BESYLATE 5 MG TAB PO SCH (08:09)
[2018-07-17] MEDS: MULTIVITAMIN TAB PO SCH (08:10)
[2018-07-17] MEDS: THIAMINE HCL 100 MG TAB PO SCH (08:10)
[2018-07-17] MEDS: ENOXAPARIN 40 MG/0.4 ML SYR SQ SCH (08:11)
[2018-07-17] MEDS ORDERED: FUROSEMIDE 40 MG TAB PO SCH (09:00)
[2018-07-17] MEDS ORDERED: AMLODIPINE BESYLATE 5 MG TAB PO SCH (09:00)
[2018-07-17] MEDS ORDERED: LOSARTAN POTASSIUM 50 MG TAB PO SCH (09:00)
[2018-07-17 09:38] VITALS: BP 118/68; PULSE 74; TEMP 36.4; O2SAT 96
[2018-07-17] MEDS ORDERED: NRV5 PO (10:30)
[2018-07-17] MEDS ORDERED: MCRK20 PO (10:30)
--- NOTE | 2018-07-17 10:30 | Discharge Instructions ---
Discharge Instructions Date of Service Jul 17, 2018. Admission Reason for Admission: Alcohol Dependence, Hyponatremia Discharge Discharge Diagnosis / Problem: HYPONATREMIA /ALCHOHOL ABUSE Discharge Goals Goal(s): Decrease discomfort, Improve function, Increase independence, Improve disease control, Therapeutic intervention Activity Recommendations Activity Limitations: resume your previous activity . Instructions / Follow-Up Instructions / Follow-Up HOSPITAL FOLLOW UP : 07/21/2018 @ 1:[address] Alex Zhou, [facility] LAB WORK : BASIC METABOLIC PANEL ON 07/21/18 NEED TO HAVE COMPLETE ABSTINENCE FROM ALCOHOL NEPHROLOGY FOLLOW UP : 09/02/2018 10:[address] Jared Batista MD Nephrology, [facility] MEDICATION ADJUSTMENTS: DO NOT TAKE HCTZ ( hydrocholorothiazide ) -will make sodium level to go lower New medication Norvasc ( amlodipine ) 5 mg daily added for blood pressure Do Not stop taking any of the meds with out discussing with your family physician Limit daily water intake 1.5 L ( 6 cups of 8 oz of water or any beverages in total ) to prevent sodium level to go lower Current Hospital Diet Patient's current hospital diet: AHA Diet (Heart Healthy) Discharge Diet Recommended Diet: AHA Diet (Heart Healthy) Fluid Restriction: 1500 ml (6 cups) Pending Studies Studies pending at discharge: no Laboratory Results Hemoglobin A1c Test 06/20/18 11:56 Range/Units Estimated Average Glucose 120 mg/dl Hemoglobin A1c 5.8 H 4.5-5.6 % Medical Emergencies . Who to Call and When: Medical Emergencies: If at any time you feel your situation is an emergency, please call 911 immediately. . Non-Emergent Contact Non-Emergency issues call your: Primary Care Provider . . "Provider Documentation" section prepared by Hannah Jasso. .
[2018-07-17 10:41] VITALS: BP 118/68; PULSE 74; TEMP 36.4; O2SAT 96
--- NOTE | 2018-07-17 12:17 | Discharge Summary ---
Discharge Summary Date of Service Jul 17, 2018. Discharge Summary Admission Date: Jul 09, 2018 at 17:50 Discharge Date: Jul 17, 2018 Discharge Disposition: Home Principal Diagnosis: HYPONATREMIA /ALCOHOL ABUSE Consultations: [facility]: DR[facility] Medication Reconciliation New Medications: Amlodipine Besylate (Amlodipine Besylate) 5 Mg Tab 5 MG PO BID for 30 Days, #60 TAB 2 Refills Potassium Chloride (Klor-Con M20) 20 Meq Tabcr 40 MEQ PO QAM for 30 Days, #60 TABS 3 Refills Continued Medications: Aspirin (Aspirin Ec) 81 Mg Tab 81 MG PO DAILY Famotidine (Pepcid) 20 Mg Tab 20 MG PO BID, TAB Furosemide (Lasix) 20 Mg Tab 40 MG PO QAM, TAB Ipratropium-Albuterol (Combivent Respimat) 1 Aer Aer 1 PUFFS INH QID, #1 INHALER 4 Refills Labetalol (Normodyne) 200 Mg Tab 200 MG PO BID, TAB Losartan Potassium (Cozaar) 100 Mg Tab 100 MG PO DAILY, TAB Multivitamins/Minerals (Mvi With Minerals) Tab 1 TAB PO QAM, TAB Pravastatin Sodium (Pravastatin Sodium) 10 Mg Tab 10 MG PO DAILY Sildenafil Citrate (Pulmonary (Sildenafil Citrate) 20 Mg Tab 40-60 MG PO UD Discontinued Medications: Hydrochlorothiazide (Hctz) 25 Mg Tab 25 MG PO DAILY, TAB Referrals At Discharge Follow up Referrals: [employer] Referral - 09/02/18 with Jared Batista M.D. Physician Referral - 07/21/18 with Alex Zhou D.ONarendra Admission Information HPI (per Admitting provider): Patient is a 63yo M with a PMH of alcohol dependence, chronic hyponatremia, HTN and COPD who was directed to present to ED due to abnormal lab work. Was recently hospitalized from June 19- for hyponatremia of 110 and left foot cellulitis. Patient is dependent on alcohol and states that he drinks approximately 30 beers daily. Had a hospital follow-up appointment with PCP Winnie earlier this week and lab work was drawn. Due to hyponatremia amongst other electrolyte abnormalities, PCP called patient and urged him to present to the ED for further evaluation. Patient endorses weakness and fatigue. Patient continues to drink daily with last drink earlier today. Patient states he has been taking some of his medications but not others. Ask me to call his for further information. Per , patient has been falling at home since discharge a few weeks ago. Patient has been taking medication erratically at home, sometimes taking multiple doses at once and other times missing doses. Patient denies confusion , lightheadedness, visual changes, chest pain, shortness of breath, abdominal pain, nausea, vomiting. No seizures. Physical Exam (per Admitting): General Appearance: WD/WN, no apparent distress, + pertinent finding ( Chronically ill-appearing, disheveled) Head: normocephalic, atraumatic Eyes: normal inspection, PERRL, sclerae normal ENT: normal ENT inspection, hearing grossly normal, pharynx normal Neck: supple, thyroid normal, trachea midline Respiratory/Chest: chest non-tender, lungs clear, normal breath sounds, no respiratory distress, no accessory muscle use Cardiovascular: regular rate, rhythm, no murmur, normal peripheral pulses Abdomen/GI: non tender, soft, no organomegaly Extremities/Musculoskelatal: normal inspection, no calf tenderness, no pedal edema, + pertinent finding (Left foot deformity) Neurologic/Psych: no motor/sensory deficits, alert, normal mood/affect, normal reflexes, + pertinent finding (Poor insight) Skin: normal color, warm/dry Hospital Course Denies of any pain or discomfort, No dizzy spell, no lightheadedness Eager to be discharged home PHYSICAL EXAM General: No sign of distress, comfortable HEENT: Sclera nonicteric, pupils bilateral equal reactive to light extraocular muscles intact Lungs: Clear to auscultate no wheeze or rales Heart: Regular S1 and S2 no murmur gallop Abdomen: Soft nontender Extremity: No lower extremity edema, no rash or deformed Neuro: No focal neurological deficit Last 8 Hrs Date Time Temp Pulse Resp B/P (MAP) Pulse Ox O2 Delivery O2 Flow Rate FiO2 07/17/18 10:41 36.4 74 18 96 Room Air 07/17/18 09:38 36.4 74 18 118/68 (85) 96 Room Air 07/17/18 07:39 36.8 59 24 163/83 (109) 97 Room Air 07/17/18 07:30 97 Room Air ASSESSMENT AND PLAN Patient is a 63 yr male with a PMH of alcohol dependence, chronic hyponatremia , HTN and COPD who presented with severe hyponatremia sodium 102 SEVERE HYPONATREMIA History of chronic hypo-natremia 2/2 beer potomania/chronic alcohol abuse Serum sodium of 102 on admission Gradual improvement of sodium Sodium levels: 102>>121>>125>>>129>>130 Sodium level improved to 134 today HCTZ discontinued Appreciate input from nephrology Continue Fluid restriction: 1500ml per day Nephrology Recommendations for Discharge: Patient will be discharged on losartan 100 mg daily, amlodipine 5 mg BID, potassium chloride 40 meq PO daily, Lasix 40 mg daily, labetalol 200 mg twice daily -HCTZ DC'd -hctz listed as adverse reaction -hyponatremia -1.5L fluid limit -Repeat lab work basic metabolic panel with one-week follow-up with family physician in clinic -Nephrology follow-up at CKD clinic in 4-8 weeks HYPOKALEMIA/HYPOMAGNESEMIA Secondary to chronic alcohol abuse Corrected Patient will be discharged with oral potassium supplement/with Lasix ALCOHOL DEPENDENCE -No sign of withdrawal Completed Gabapentin protocol continue thiamine, folic acid -Patient is counseled for complete abstinence from alcohol -Not interested in alcohol rehab-says he has been > 4 of them already and did not work for him -thinks he can quit on his own TOBACCO ABUSE : smokes 1/2 pk /cig a day counselled for smoking cessation Drinking alcohol and smoking usually goes together quitting smoking may also help to stop drinking alcohol HYPERTENSION Blood pressure better controlled after adjustment of meds Continue Labetalol, Losartan Added Amlodipine 5 mg p.o. twice daily Lasix Resumed GERD continue Pepcid COPD Stable Continue home inhalers DVT Px: Lovenox SQ DISPOSITION: Stable to be discharged home today Medicine follow up with Dr Alex Zhou on 07/21/18 Lab work : BMP on 07/21/18 Nephrology follow up with Dr Batista on 6-8 weeks Total time spent on discharge = 40 mins This includes examination of the patient, discharge planning, medication reconciliation, and communication with other providers. Discharge Instructions Discharge Instructions Date of Service Jul 17, 2018. Admission Reason for Admission: Alcohol Dependence, Hyponatremia Discharge Discharge Diagnosis / Problem: HYPONATREMIA /ALCOHOL ABUSE Discharge Goals Goal(s): Decrease discomfort, Improve function, Increase independence, Improve disease control, Therapeutic intervention Activity Recommendations Activity Limitations: resume your previous activity . Instructions / Follow-Up Instructions / Follow-Up HOSPITAL FOLLOW UP : 07/21/2018 @ 1:[address] Alex Zhou, DO Family Practice [facility] LAB WORK : BASIC METABOLIC PANEL ON 07/21/18 NEED TO HAVE COMPLETE ABSTINENCE FROM ALCOHOL NEPHROLOGY FOLLOW UP : 09/02/2018 10:[address] Jared Batista MD Nephrology, [facility] MEDICATION ADJUSTMENTS: DO NOT TAKE HCTZ ( hydrocholorothiazide ) -will make sodium level to go lower New medication Norvasc ( amlodipine ) 5 mg daily added for blood pressure Do Not stop taking any of the meds with out discussing with your family physician Limit daily water intake 1.5 L ( 6 cups of 8 oz of water or any beverages in total ) to prevent sodium level to go lower Current Hospital Diet Patient's current hospital diet: AHA Diet (Heart Healthy) Discharge Diet Recommended Diet: AHA Diet (Heart Healthy) Fluid Restriction: 1500 ml (6 cups) Pending Studies Studies pending at discharge: no Laboratory Results Hemoglobin A1c Test 06/20/18 11:56 Range/Units Estimated Average Glucose 120 mg/dl Hemoglobin A1c 5.8 H 4.5-5.6 % Medical Emergencies . Who to Call and When: Medical Emergencies: If at any time you feel your situation is an emergency, please call 911 immediately. . Non-Emergent Contact Non-Emergency issues call your: Primary Care Provider . . "Provider Documentation" section prepared by Hannah Jasso. . Additional Copies To Jared Batista M.D. Newhouser, Shane D., D.O.
== END 2018-07-17 13:31 | disposition home or self-care (01) | DRG 641 ==
LOC: C.EDB 14:56 → C.MSICU 17:50 → ENRESERV 18:11 → C.2T 07-11 12:37 → ENRESERV 07-15 12:30 → C.MED 07-15 13:21
PROVIDERS: ADMIT Internal Medicine; ATTEND Hospitalist
DX: E87.1 Hypo-osmolality and hyponatremia (principal); D61.818 Other pancytopenia; F10.20 Alcohol dependence, uncomplicated; K76.0 Fatty (change of) liver, not elsewhere classified; I10 Essential (primary) hypertension; Z91.14 Patient's other noncompliance with medication regimen; E87.6 Hypokalemia; E83.42 Hypomagnesemia; J44.9 Chronic obstructive pulmonary disease, unspecified; F12.10 Cannabis abuse, uncomplicated; K21.9 Gastro-esophageal reflux disease without esophagitis